=== PATIENT | female | born 1955 | race Caucasian/White ===

== ENCOUNTER → 2019-09-20 | Outpatient (CLI) | payer MEDICARE ==
--- NOTE | 2019-09-20 11:48 | EST ---
EXERCISE STRESS AGE: 63 SEX: F HT: 60" WT: 175 lbs PROTOCOL: Stress echo STAGE: 2 DURATION OF EXERCISE: 6 minutes HEART RATE REST: 86 BLOOD PRESSURE REST: 107/69 MAXIMUM HEART RATE ACHIEVED: 140 MAXIMUM BLOOD PRESSURE: 175/01 85% MPHR: 132 100% MPHR: 158 METS: 7.1 INDICATIONS: Chest pain. RESULTS: Baseline EKG revealed a sinus mechanism with poor R-wave progression over precordial leads. No acute changes. Minor right ventricular conduction delay noted. The patient walked for 6 minutes on a standard Michael protocol. Achieved a maximal heart rate of 140 beats per minute which is more than 85% of predicted maximal. She did not have any angina or any arrhythmia. She did not have any EKG changes to indicate ischemia. This is a negative stress test with limited exercise capacity without any arrhythmia or angina. Baseline echo images revealed normal wall motion and wall thickening of all segments. At peak exercise there was good augmentation of left ventricular wall motion wall thickening of all segments suggesting that there is no evidence of stress-induced ischemia on this study. FINAL IMPRESSION: 1. Fair exercise capacity with a negative stress test by EKG criteria. Peak heart rate was 140 beats per minute and peak blood pressure was 175/91. 2. Normal stress echocardiogram without evidence of ischemia. MMODL / IJN: [id number] /
== END | disposition home or self-care (01) ==
LOC: RADNMMAIN 09:30
PROVIDERS: ATTEND Family Medicine
DX: R94.31 Abnormal electrocardiogram [ECG] [EKG] (principal)
CPT/HCPCS: 93351

== ENCOUNTER → 2019-10-19 | Outpatient (CLI) | payer MEDICARE | END | disposition home or self-care (01) | LOC: RADECHMAIN 12:08 | PROVIDERS: ATTEND Family Medicine | DX: I49.1 Atrial premature depolarization (principal); I49.3 Ventricular premature depolarization | CPT/HCPCS: 93225; 93226 ==

== ENCOUNTER 2021-06-07 07:44 | Day surgery (SDC) | payer MEDICARE ==
[2021-06-04 12:30] VITALS: BMI 35.2
[~2021-06-07 07:44] MED LIST: LACTATED RINGERS 1,000 ML IV SCH; LIDOCAINE 1% (10MG/ML) FOR IV START INTRADERMA PRN
[2021-06-07 08:17] VITALS: TEMP 97.4
[2021-06-07] MEDS ORDERED: PROPOFOL 10 MG/ML 20 ML VIAL IV ONE (08:23)
--- NOTE | 2021-06-07 08:26 | P.GSHP ---
History of Present Illness H&P Date: 06/07/21 Chief Complaint: Screening colonoscopy This is a 65-year-old female who presents today for screening colonoscopy. Patient denies any significant GI complaints. Past Medical History Past Medical History: GERD/Reflux, Hypertension, Musculoskeletal Disorder, Osteoarthritis (OA) Additional Past Medical History / Comment(s): PALPATATIONS. hemorrhoids, slight bulging disc History of Any Multi-Drug Resistant Organisms: None Reported Additional Past Surgical History / Comment(s): D & C, throat polyp removed, colonoscopy, benign growth removed from cheek Past Anesthesia/Blood Transfusion Reactions: Motion Sickness Smoking Status: Never smoker - Past Family History Mother Family Medical History: No Reported History Medications and Allergies Home Medications Medication Instructions Recorded Confirmed Type Lisinopril [Prinivil] 10 mg PO HS 04/25/14 06/07/21 History dilTIAZem HCL [dilTIAZem HCL 24Hr 240 mg PO HS 06/04/21 06/07/21 History ER (Xr)] Allergies Allergy/AdvReac Type Severity Reaction Status Date / Time No Known Allergies Allergy Verified 06/07/21 08:10 Surgical - Exam Vital Signs Temp Pulse Resp BP Pulse Ox 97.4 F L 75 16 155/74 97 06/07/21 08:16 06/07/21 08:16 06/07/21 08:16 06/07/21 08:16 06/07/21 08:16 - General well developed, well nourished, no distress - Eyes PERRL - ENT normal pinna - Neck no masses - Respiratory normal expansion - Cardiovascular Rhythm: regular - Abdomen Abdomen: soft, non tender Assessment and Plan Assessment: We'll perform screening colonoscopy.
--- NOTE | 2021-06-07 08:35 | P.OP ---
Date of Procedure: 06/07/21 Preoperative Diagnosis: Screening colonoscopy Postoperative Diagnosis: Diverticulosis Hemorrhoids Procedure(s) Performed: Colonoscopy Anesthesia: MAC Surgeon: Donavan Chowdhury Pathology: none sent Condition: stable Disposition: PACU Description of Procedure: Patient's placed on the endoscopy table in the lateral position. She received IV sedation. Digital rectal exam performed which revealed significant external hemorrhoids. The flexible colonoscope was then placed patient anus and passed throughout the entire colon. The ileocecal valve sutures. The cecum, ascending and transverse colon appeared normal. In the descending; was mild diverticular changes. Scope was brought back the rectum this appeared normal. Scope withdrawn the anus and there were internal and external hemorrhoids noted.
[2021-06-07 08:41] VITALS: BP 104/67
[2021-06-07 08:57] VITALS: PULSE 66; RESP 16
== END 2021-06-07 09:15 | disposition home or self-care (01) ==
LOC: ORWHC2ENDO 07:44
PROVIDERS: ATTEND Surgery
DX: Z12.11 Encounter for screening for malignant neoplasm of colon (principal); K57.30 Diverticulosis of large intestine without perforation or abscess without bleeding; K64.4 Residual hemorrhoidal skin tags; K21.9 Gastro-esophageal reflux disease without esophagitis; I10 Essential (primary) hypertension; M19.90 Unspecified osteoarthritis, unspecified site; Z98.890 Other specified postprocedural states; Z79.899 Other long term (current) drug therapy
CPT/HCPCS: J2704; G0121; 45378

== ENCOUNTER → 2021-07-26 | Outpatient (CLI) | payer MEDICARE ==
--- NOTE | 2021-07-27 08:51 | BD ---
EXAMINATION TYPE: Axial Bone Density DATE OF EXAM: 07/26/2021 COMPARISON: 12.12.2009 CLINICAL HISTORY: 65 YR OLD FEMALE....ICD-10 CODE: N95.1 MENOPAUSAL Height: 59 Weight: 180 FRAX RISK QUESTIONS: Glucocorticoids (More than 3mos): YES (Ex: prednisone, prednisolone, methylprednisolone, dexamethasone, and hydrocortisone). RISK FACTORS HISTORY OF: Postmenopausal woman: YES, AT ABOUT 50 YRS OLD Lost more than 2 inches in height since high school: YES Hyperparathyroidism: NO Adrenal Insufficiency: NO MEDICATIONS: Prednisone or other steroids: YES, FOR BULGING DISCS IN SPINE, FOR YR Additional Medications: BP MED, REFLUX MEDS, VIT D AND CALCIUM WITH MULTIVITAMIN Additional History: HYPERTENSION, REFLUX EXAM MEASUREMENTS: Bone mineral densitometry was performed using the [email or web address] System. Bone mineral density as measured about the Lumbar spine is: ----- L1-L4(G/cm2): 0.993 T Score Values are as follows: ----- L1: -2.0 ----- L2: -2.3 ----- L3: -1.0 ----- L4: -1.1 ----- L1-L4: -1.6 Bone mineral density has: Increased 2.8% since study of: 12.12.2009 Bone mineral density about the R hip (g/cm2): 0.900 Bone mineral density about the L hip (g/cm2): 0.945 T Score values are as follows: -----R Neck: -1.5 -----L Neck: -1.5 -----R Total: -0.9 -----L Total: -0.5 Bone mineral density has: Decreased -8.8% since study of: 12.12.2009 FRAX%s: THERE IS A 12.1% CHANCE FOR A MAJOR OSTEOPOROTIC FX AND A 2.1% FOR HIP.....PROBABILITY FOR FX IN 10 YRS TIME IMPRESSION: Osteopenia NOTE: T-SCORE=SD OF THE YOUNG ADULT MEAN.
== END | disposition home or self-care (01) ==
LOC: RADBDWWP 09:08
PROVIDERS: ATTEND Family Medicine
DX: M85.89 Other specified disorders of bone density and structure, multiple sites (principal); Z78.0 Asymptomatic menopausal state
CPT/HCPCS: 77080

== ENCOUNTER 2022-11-16 23:38 | Emergency (ER) | payer MEDICARE ==
[2022-11-16 23:48] VITALS: RESP 18; TEMP 98.4
[2022-11-17] MEDS ORDERED: FAMOTIDINE 20 MG/2 ML VIAL IV STA (00:34)
[2022-11-17] MEDS ORDERED: SODIUM CHLORIDE 0.9% 500 ML 500 ML IV STA (00:34)
[2022-11-17] MEDS ORDERED: ONDANSETRON 4 MG/2 ML VIAL IVP STA (00:34)
--- NOTE | 2022-11-17 00:39 | ED ---
General Adult HPI - General Chief complaint: Nausea/Vomiting/Diarrhea Stated complaint: Diarrhea, Fever, Cough, Congestion Time Seen by Provider: 11/17/22 00:12 Source: patient, RN notes reviewed, old records reviewed Mode of arrival: ambulatory - History of Present Illness Initial comments: This is a pleasant nontoxic-appearing 66-year-old female who presents ambulatory with complaints of testing positive for coronavirus at home on Friday. Friday she developed some nausea with fever and cough. Has had a decreased appetite but has been drinking a lot of water. Today she developed some diarrhea. No further fevers. She has been increasingly fatigued and dehydrated and feels like dehydration is point cause her heart to stop. She denies any chest pain or difficulty in breathing. History of GERD, hypertension and palpitations. -: days(s) (5) Severity scale (1-10): 5 Quality: aching (body) Associated Symptoms: loss of appetite, malaise, nausea/vomiting (no vomiting), weakness Treatments Prior to Arrival: none - Related Data Home Medications Medication Instructions Recorded Confirmed lisinopriL [Prinivil] 10 mg PO HS 04/25/14 06/07/21 dilTIAZem HCL [dilTIAZem HCL 24Hr 240 mg PO HS 06/04/21 06/07/21 ER (Xr)] Allergies Allergy/AdvReac Type Severity Reaction Status Date / Time No Known Allergies Allergy Verified 11/16/22 23:48 Patient : No Review of Systems ROS Statement: Those systems with pertinent positive or pertinent negative responses have been documented in the HPI. ROS Other: All systems not noted in ROS Statement are negative. Past Medical History Past Medical History: GERD/Reflux, Hypertension, Musculoskeletal Disorder, Osteoarthritis (OA) Additional Past Medical History / Comment(s): PALPATATIONS. hemorrhoids, slight bulging disc History of Any Multi-Drug Resistant Organisms: None Reported Additional Past Surgical History / Comment(s): D & C, throat polyp removed, colonoscopy, benign growth removed from cheek Past Anesthesia/Blood Transfusion Reactions: Motion Sickness Past Psychological History: No Psychological Hx Reported Smoking Status: Never smoker - Past Family History Mother Family Medical History: No Reported History General Exam General appearance: alert, in no apparent distress Head exam: Present: atraumatic Eye exam: Absent: scleral icterus, conjunctival injection, periorbital swelling ENT exam: Present: mucous membranes dry Neck exam: Present: full ROM. Absent: tenderness, meningismus, lymphadenopathy Respiratory exam: Present: normal lung sounds bilaterally. Absent: respiratory distress, accessory muscle use Cardiovascular Exam: Present: regular rate GI/Abdominal exam: Present: soft. Absent: distended, rigid Extremities exam: Present: normal capillary refill. Absent: pedal edema Neurological exam: Present: alert, oriented X3, CN II-XII intact, normal gait Psychiatric exam: Present: normal affect, normal mood Skin exam: Present: warm, dry, normal color. Absent: cyanosis, diaphoretic, petechiae, pallor Course Vital Signs 11/16/22 11/17/22 23:41 02:48 Temperature 98.4 F Pulse Rate 95 73 Respiratory 18 18 Rate Blood Pressure 163/100 150/73 O2 Sat by Pulse 96 98 Oximetry EKG Findings - EKG Results: EKG: sinus rhythm (Ventricular rate 79, MI interval 0.169, QRS 0.98, QTc 0.443, normal axis, no significant change compared to stress EKG 09/20/19) Medical Decision Making - Medical Decision Making Chest x-ray interpreted by me shows no evidence of focal consolidation, trachea is midline, heart silhouette within normal size. Radiologist impression COPD, no acute disease identified. EKG shows sinus rhythm with a ventricular rate of 79, MI interval 0.169, QRS 0.98, QTc 0.443. No significant change compared to old 09/20/2019 Troponin is negative. CBC and electrolytes are unremarkable. D-dimer negative, was performed due to patient's recent diagnosis of Covid. Patient's symptoms are likely related to malaise from the coronavirus. She was encouraged to increase her fluid intake. Take vitamin C, vitamin D and zinc daily. Follow up with her primary care Dr. Lainez next week. She is discharged home to family agreeable with this plan of care. Case discussed with Dr. Olguin. Was pt. sent in by a medical professional or institution ([facility], PRINCIPAL SYSTEM SOFTWARE ENGINEER, urgent care, hospital, or prison...) When possible be specific @ -No Did you speak to anyone other than the patient for history (EMS, parent, family, police, friend...)? What history was obtained from this source @ -No Did you review nursing and triage notes (agree or disagree)? Why? @ -I reviewed and agree with nursing and triage notes Were old charts reviewed (outside hosp., previous admission, EMS record, old EKG, old radiological studies, urgent care reports/EKG's, prison records)? Report findings @ -Old EKG as above Differential Diagnosis (chest pain, altered mental status, abdominal pain women, abdominal pain men, vaginal bleeding, weakness, fever, dyspnea, syncope, headache, dizziness, GI bleed, back pain, seizure, CVA, palpatations, mental health, musculoskeletal)? @ -Differential Weakness: Hypoglycemia, shock, sepsis, hyponatremia, anemia, infection, CO, ETOH, adverse medicine reaction, overdose, stroke, this is not meant to be an all-inclusive list. EKG interpreted by me (3pts min.). @ -As above X-rays interpreted by me (1pt min.). @ -yeS as above CT interpreted by me (1pt min.). @ -None done U/S interpreted by me (1pt. min.). @ -None done What testing was considered but not performed or refused? (CT, X-rays, U/S, labs)? Why? @ -None What meds were considered but not given or refused? Why? @ -None Did you discuss the management of the patient with other professionals (professionals i.e. , PA, PRINCIPAL SYSTEM SOFTWARE ENGINEER, lab, RT, psych nurse, manager social services, retail and restaurant associate, teacher, personnel officer, case work aide)? Give summary @ -No Was smoking cessation discussed for >3mins.? @ -No Was critical care preformed (if so, how long)? @ -No Were there social determinants of health that impacted care today? How? (Hua elessness, low income, unemployed, alcoholism, drug addiction, transportation, low edu. Level, literacy, decrease access to med. care, half-way, rehab)? @ -No Was there de-escalation of care discussed even if they declined (Discuss DNR or withdrawal of care, Hospice)? DNR status @ -No What co-morbidities impacted this encounter? (DM, HTN, Smoking, COPD, CAD, Cancer, CVA, ARF, Chemo, Hep., AIDS, mental health diagnosis, sleep apnea, morbid obesity)? @ -GERD, hypertension, osteoarthritis Was patient admitted / discharged? Hospital course, mention meds given and route, prescriptions, significant lab abnormalities, going to OR and other pertinent info. @ -Discharged Undiagnosed new problem with uncertain prognosis? @ -No Drug Therapy requiring intensive monitoring for toxicity (Heparin, Nitro, Insulin, Cardizem)? @ -No Were any procedures done? @ -No Diagnosis/symptom? @ -Coronavirus, malaise Acute, or Chronic, or Acute on Chronic? @ -Acute Uncomplicated (without systemic symptoms) or Complicated (systemic symptoms)? @ -Uncomplicated Side effects of treatment? @ -No Exacerbation, Progression, or Severe Exacerbation? @ -No Poses a threat to life or bodily function? How? (Chest pain, USA, CO, pneumonia, PE, COPD, DKA, ARF, appy, cholecystitis, CVA, Diverticulitis, Homicidal, Suicidal, threat to staff... and all critical care pts) @ -No - Lab Data Result diagrams: 11/17/22 00:38 11/17/22 00:38 Lab Results 11/17/22 11/17/22 11/17/22 Range/Units 00:38 00:38 00:38 WBC 6.2 (3.8-10.6) k/uL RBC 5.18 (3.80-5.40) m/uL Hgb 15.0 (11.4-16.0) gm/dL Hct 42.3 (34.0-46.0) % MCV 81.6 (80.0-100.0) fL MCH 29.1 (25.0-35.0) pg MCHC 35.6 (31.0-37.0) g/dL RDW 13.5 (11.5-15.5) % Plt Count 187 (150-450) k/uL MPV 8.9 Neutrophils % 74 % Lymphocytes % 16 % Monocytes % 7 % Eosinophils % 1 % Basophils % 0 % Neutrophils # 4.6 (1.3-7.7) k/uL Lymphocytes # 1.0 (1.0-4.8) k/uL Monocytes # 0.4 (0-1.0) k/uL Eosinophils # 0.1 (0-0.7) k/uL Basophils # 0.0 (0-0.2) k/uL PT 10.0 (9.0-12.0) sec INR 0.9 (<1.2) APTT 25.7 (22.0-30.0) sec D-Dimer 0.37 (<0.60) mg/L FEU Sodium 137 (137-145) mmol/L Potassium 3.9 (3.5-5.1) mmol/L Chloride 103 (98-107) mmol/L Carbon Dioxide 22 (22-30) mmol/L Anion Gap 12 mmol/L BUN 12 (7-17) mg/dL Creatinine 0.62 (0.52-1.04) mg/dL Est GFR (CKD-EPI)AfAm >90 (>60 ml/min/1.73 sqM) Est GFR (CKD-EPI)NonAf >90 (>60 ml/min/1.73 sqM) Glucose 152 H (74-99) mg/dL Plasma Lactic Acid Yobany (0.7-2.0) mmol/L Calcium 9.0 (8.4-10.2) mg/dL Magnesium 2.0 (1.6-2.3) mg/dL Total Bilirubin 0.4 (0.2-1.3) mg/dL AST 32 (14-36) U/L ALT 31 (4-34) U/L Alkaline Phosphatase 102 (38-126) U/L Troponin I (0.000-0.034) ng/mL Total Protein 6.7 (6.3-8.2) g/dL Albumin 4.1 (3.5-5.0) g/dL 11/17/22 11/17/22 Range/Units 00:38 00:38 WBC (3.8-10.6) k/uL RBC (3.80-5.40) m/uL Hgb (11.4-16.0) gm/dL Hct (34.0-46.0) % MCV (80.0-100.0) fL MCH (25.0-35.0) pg MCHC (31.0-37.0) g/dL RDW (11.5-15.5) % Plt Count (150-450) k/uL MPV Neutrophils % % Lymphocytes % % Monocytes % % Eosinophils % % Basophils % % Neutrophils # (1.3-7.7) k/uL Lymphocytes # (1.0-4.8) k/uL Monocytes # (0-1.0) k/uL Eosinophils # (0-0.7) k/uL Basophils # (0-0.2) k/uL PT (9.0-12.0) sec INR (<1.2) APTT (22.0-30.0) sec D-Dimer (<0.60) mg/L FEU Sodium (137-145) mmol/L Potassium (3.5-5.1) mmol/L Chloride (98-107) mmol/L Carbon Dioxide (22-30) mmol/L Anion Gap mmol/L BUN (7-17) mg/dL Creatinine (0.52-1.04) mg/dL Est GFR (CKD-EPI)AfAm (>60 ml/min/1.73 sqM) Est GFR (CKD-EPI)NonAf (>60 ml/min/1.73 sqM) Glucose (74-99) mg/dL Plasma Lactic Acid Yobany 1.0 (0.7-2.0) mmol/L Calcium (8.4-10.2) mg/dL Magnesium (1.6-2.3) mg/dL Total Bilirubin (0.2-1.3) mg/dL AST (14-36) U/L ALT (4-34) U/L Alkaline Phosphatase (38-126) U/L Troponin I <0.012 (0.000-0.034) ng/mL Total Protein (6.3-8.2) g/dL Albumin (3.5-5.0) g/dL Disposition Clinical Impression: COVID-19 Disposition: HOME SELF-CARE Condition: Good Instructions (If sedation given, give patient instructions): COVID-19 (Coronavirus Disease 2019) (ED) Additional Instructions: Increase your fluid intake. Tylenol and or Motrin as needed for any fevers or discomfort. Take vitamin C, vitamin D and zinc daily to improve your immune health. Follow-up with Dr. Lainez next week. Return to the emergency room with any new or concerning symptoms. Is patient prescribed a controlled substance at d/c from ED?: No Referrals: Francis Lainez MD [Primary Care Provider] - 1-2 days Time of Disposition: 02:37
[2022-11-17 01:14] LABS: Basophils % (A) 0 %; Eosinophils # (A) 0.1 k/uL (0-0.7); Eosinophils % (A) 1 %; HCT 42.3 % (34.0-46.0); Lymphocytes % (A) 16 %; MCH 29.1 pg (25.0-35.0); MCHC 35.6 g/dL (31.0-37.0); MCV 81.6 fL (80.0-100.0); Mean Platelet Volume 8.9; Monocytes # (A) 0.4 k/uL (0-1.0); Monocytes % (A) 7 %; Neutrophils # (A) 4.6 k/uL (1.3-7.7); Neutrophils % (A) 74 %; Platelet Count 187 k/uL (150-450); RBC 5.18 m/uL (3.80-5.40); RDW 13.5 % (11.5-15.5); WBC 6.2 k/uL (3.8-10.6)
[2022-11-17 01:35] LABS: Chloride 103 mmol/L (98-107)
[2022-11-17 01:36] LABS: ALT 31 U/L (4-34); AST 32 U/L (14-36); African American GFR (CKD) >90 (>60 ml/min/1.73 sqM); Albumin 4.1 g/dL (3.5-5.0); Alkaline Phosphatase 102 U/L (38-126); Anion Gap 12 mmol/L; Blood Urea Nitrogen 12 mg/dL (7-17); Carbon Dioxide 22 mmol/L (22-30); Glucose 152 mg/dL (74-99); Non-African American GFR(CKD) >90 (>60 ml/min/1.73 sqM); Potassium 3.9 mmol/L (3.5-5.1); Sodium 137 mmol/L (137-145); Total Bilirubin 0.4 mg/dL (0.2-1.3); Total Protein 6.7 g/dL (6.3-8.2)
[2022-11-17 02:03] LABS: INR 0.9 (<1.2); Partial Thromboplastin Time 25.7 sec (22.0-30.0)
[2022-11-17 02:49] VITALS: BP 150/73; PULSE 73
--- NOTE | 2022-11-17 03:28 | XR ---
EXAM: XR Chest, 2 Views CLINICAL HISTORY: ITS.REASON XR Reason: Weakness TECHNIQUE: Frontal and lateral views of the chest. COMPARISON: None FINDINGS: Hardware: None. Lungs/pleura: Hyperinflation of the lungs is suggestive of COPD. No focal consolidation. No pleural effusion or pneumothorax. Heart/mediastinum: Normal. No cardiomegaly. Soft tissues: Unremarkable. Bones: No acute fracture. Degenerative changes of the spine. Upper abdomen: Normal. IMPRESSION: COPD. No acute disease identified.
== END 2022-11-17 02:50 | disposition home or self-care (01) ==
LOC: EC 23:38
DX: U07.1 COVID-19 (principal); I10 Essential (primary) hypertension; Z79.899 Other long term (current) drug therapy
CPT/HCPCS: 36415; 93005; 85379; 80053; 83605; 83735; 84484; 85025; 85610; 85730; 71046; 99284; 96374; 96375; J2405

== ENCOUNTER → 2023-07-11 | Outpatient (CLI) | payer MEDICARE ==
[2023-07-11 14:20] LABS: Partial Thromboplastin Time 24.9 sec (22.0-30.0); Prothrombin Time 10.7 sec (10.0-12.5)
[2023-07-11 16:23] LABS: ALT 15 U/L (8-44); AST 18 U/L (13-35); Albumin 4.5 g/dL (3.8-4.9); Albumin/Globulin Ratio 2.05 Ratio (1.60-3.17); Alkaline Phosphatase 113 U/L (41-126); Blood Urea Nitrogen 11.9 mg/dL (9.0-27.0); Calcium 10.4 mg/dL (8.7-10.3); Carbon Dioxide 24.9 mmol/L (21.6-31.8); Chloride 104 mmol/L (96-109); Globulin 2.2 g/dL (1.6-3.3); Glucose 98 mg/dL (70-110); HCT 45.1 % (37.2-46.3); HGB 15.3 g/dL (12.0-15.0); MCH 28.2 pg (27.0-32.0); MCHC 33.9 g/dL (32.0-37.0); MCV 83.1 FL (80.0-97.0); Mean Platelet Volume 10.4 FL (9.5-12.2); NRBC Per 100 WBC 0 X 10*3/uL (0.00-0.01); Platelet Count 275 X 10*3/uL (140-440); Potassium 4.7 mmol/L (3.5-5.5); RBC 5.43 X 10*6/uL (4.10-5.20); RDW 13.8 % (11.5-14.5); Sodium 141 mmol/L (135-145); Total Bilirubin 0.4 mg/dL (0.3-1.2); Total Protein 6.7 g/dL (6.2-8.2)
[2023-07-11 16:49] LABS: Appearance,Urine Clear (Clear); Bilirubin,Urine Negative (Negative); Blood,Urine Moderate (Negative); Color,Urine Yellow (Yellow); Ketones,Urine Trace (Negative); Nitrite,Urine Negative (Negative); Specific Gravity,Urine 1.015 (1.001-1.030); Urobilinogen,Urine 0.2 E.U./DL
[2023-07-11 17:07] LABS: Bacteria,Urine None Seen (None Seen)
== END | disposition home or self-care (01) ==
LOC: LABPAT 13:26
PROVIDERS: ATTEND Orthopaedic Surgery
DX: Z01.812 Encounter for preprocedural laboratory examination (principal); M16.11 Unilateral primary osteoarthritis, right hip
CPT/HCPCS: 80053; 81001; 85027; 85610; 85730; 86850; 86900; 86901; 87070

== ENCOUNTER 2023-07-21 05:33 | Day surgery (SDC) | payer MEDICARE ==
[2023-07-15 09:01] VITALS: BMI 35.2
[~2023-07-21 05:33] MED LIST changes: +ACETAMINOPHEN TAB 500 MG TAB PO PRN; +GABAPENTIN 300 MG CAP PO PRN; -LACTATED RINGERS 1,000 ML IV SCH; -LIDOCAINE 1% (10MG/ML) FOR IV START INTRADERMA PRN; +MELOXICAM 7.5 MG TAB PO PRN; +TRANEXAMIC 1,000 MG/100ML-NACL 1,000 MG in SALINE 1 100ML.BAG IVPB PRN
[2023-07-21] MEDS ORDERED: ONDANSETRON 4 MG/2 ML VIAL IVP ONE (05:47)
[2023-07-21] MEDS ORDERED: DEXAMETHASONE SOD PHOSPHATE 4 MG/ML 1 ML VIAL IV ONE (05:47)
[2023-07-21] MEDS: LACTATED RINGERS 1,000 ML IV SCH ×2 (06:01→10:49)
[2023-07-21] MEDS ORDERED: MIDAZOLAM 2 MG/2 ML VIAL IVP ONE (06:39)
[2023-07-21] MEDS ORDERED: fentaNYL (PF) 50 MCG/ML 2 ML AMP ONE (06:55)
[2023-07-21] MEDS ORDERED: ROCURONIUM 10 MG/ML (5 ML VIAL) IV ONE (06:55)
[2023-07-21] MEDS ORDERED: TRANEXAMIC 1,000 MG/100ML-NACL PREMIX BAG ONE (06:55)
[2023-07-21] MEDS ORDERED: PROPOFOL 10 MG/ML 20 ML VIAL IV ONE (06:55)
[2023-07-21] MEDS ORDERED: NEOSTIGMINE 1 MG/ML 10 ML VIAL ONE (06:55)
[2023-07-21] MEDS ORDERED: MIDAZOLAM 2 MG/2 ML VIAL ONE (06:55)
[2023-07-21] MEDS ORDERED: HYDROmorphone (PF) 1 MG/ML ONE (06:55)
[2023-07-21] MEDS ORDERED: GLYCOPYRROLATE 0.2 MG/ML 2 ML VIAL ONE (06:55)
[2023-07-21] MEDS ORDERED: SUCCINYLCHOLINE CHLORIDE 200 MG/10 ML VIAL IV ONE (06:55)
[2023-07-21] MEDS ORDERED: MIDAZOLAM 2 MG/2 ML VIAL IV PRN (07:00)
[2023-07-21] MEDS ORDERED: HYDROmorphone 0.5 MG/0.5 ML SYRINGE IVP PRN ×4 (07:00→08:45)
--- NOTE | 2023-07-21 07:22 | P.ANPRN ---
Procedure Note - Anesthesia - Nerve Block Performed Right Eamon Single Time Out Performed: Yes Date of Procedure: 07/21/23 Procedure Start Time: 06:39 Procedure Stop Time: 06:45 Location of Patient: PreOp Indication: Acute Post-Operative Pain, Analgesia, Requested by Surgeon Sedation Type: Sedate with meaningful contact maintained Preparation: Sterile Prep Position: Supine Catheter: None Needle Types: Pajunk Needle Gauge: 21 Ultrasound used to visualize needle placement: Yes Ultrasound used to observe medication spread: Yes Injectate: 0.5% Ropivacaine (see comment for volume) (Ropiv 12.5ml+NS 12.5 ml) Blood Aspirated: No Pain Paresthesia on Injection Noted: No Resistance on Injection: Normal Image Stored and Saved: Yes Events: Uneventful and Well Tolerated
[2023-07-21] MEDS ORDERED: ceFAZolin 1,000 MG in SODIUM CHLORIDE 0.9% 1,000 ML IRRIGATION ONE (07:33)
[2023-07-21] MEDS ORDERED: ROPIVACAINE 5 MG/ML 30 ML VIAL MISCELLANE ONE (07:37)
--- NOTE | 2023-07-21 08:23 | P.OP ---
Date of Procedure: 07/21/23 Preoperative Diagnosis: Severe osteoarthritis right hip Postoperative Diagnosis: Severe osteoarthritis right hip Procedure(s) Performed: Right total hip arthroplasty with a direct anterior approach Implants: [employer] Polarstem standard size 3 with a collar [employer]hew R3, 3 hole hemispherical acetabular shell, 50 mm [employer]hew Reflection 6.5 mm cancellus screw, 20 mm, 25 mm [employer] R3, XLPE 20 acetabular liner [employer]hew Oxinium femoral head 36 mm, -3 All components were press-fit. The articulation is Oxinium on polyethylene. Anesthesia: GETA Surgeon: Dheeraj Cervantes Sql Data Analyst #1: Millie Snider Estimated Blood Loss (ml): 300 Pathology: none sent Condition: stable Disposition: PACU Indications for Procedure: After failure of conservative treatment we discussed the surgical and non surgical treatment options at length. Patient wishes to proceed with a total hip arthroplasty with a direct anterior approach. Complications specific to this procedure were discussed at length, including but not limited to infection, leg length discrepancy, dislocation, nerve injury, and fracture. Covid-19 was also discussed at length with the patient, and they are aware of the current policies and procedures. The patient was given the option of delaying surgery, but they elect to proceed knowing these risks. Patient is aware of all these complications and informed consent was obtained Operative Findings: The operative findings are consistent with severe osteoarthritis of the right hip Description of Procedure: The patient was seen and evaluated in the preoperative area and the consent was reviewed. The operative site was marked with a skin marker. The patient verified the procedure and operative site. A HERB block was placed by anesthesia in the preoperative area. The patient was then brought to the operating room and given preoperative antibiotics intravenously. 1 g of Tranexamic acid was also given intravenously. A general anesthetic was administered by the anesthesia department. The patient was then placed on the Moran table with the bony prominences well-padded. The hip area was then prepped with a ChloraPrep solution and draped in the usual sterile fashion. A universal timeout was then performed, which confirmed the patient's name, surgical site, ALLERGIES, and procedure being performed on the consent. Next the incision site was located at 1 cm distal and 4 cm lateral to the anterior superior iliac spine. The skin and subcutaneous tissues were sharply incised. Incision was carefully dissected down to the fascia overlying the tensor fascia immanuel muscle. This fascia was then incised in line with the muscle fibers. Care was taken to stay laterally in order to avoid injuring the lateral femoral cutaneous nerve. Next, using blunt finger dissection, the tensor fascia immanuel muscle was dissected off its investing fascia. The muscle was then carefully retracted laterally with a cobra retractor over the lateral neck of the femur. Next, the circumflex vessels were identified and cauterized using the Aquamantis device. The anterior hip capsule was then exposed. The capsule was then opened and an inverted T fashion. The retractors were then placed intracapsularly. The retractors were maintained intracapsular throughout the procedure. The proximal femur was then visualized. Fluoroscopic x-rays were then taken in order to evaluate the preoperative leg lengths. A small amount of traction was placed on the leg. The femoral neck was then osteotomized at the appropriate level above the lesser trochanter. A small wedge of bone was then removed from the remaining femoral head. Next, using a corkscrew the femoral head was removed from the acetabulum. On gross visual inspection, the femoral head had complete loss of articular cartilage and multiple periarticular osteophytes. The femoral head was then measured. Attention was then turned to the acetabulum. The acetabulum was exposed and any remaining labrum was excised. Sequential reaming of the acetabulum was performed using fluoroscopic guidance until there was a good bed of bleeding cancellus bone. When the appropriate size was reached, a trial was then placed. The position and fit of the trial was checked with fluoroscopy. The trial was then removed. Then, using fluoroscopic guidance, the final implant was impacted at 20 of anteversion and 40 of abduction, and fully seated in the acetabulum. 2 screws were then placed in the acetabulum. Again fluoroscopy was used to check position of the screws. Next, the liner was then impacted, with a 20 elevated liner located in the anterior superior quadrant. Component locking was confirmed. Attention was then directed to the femur. With the aid of the Moran table, the femur was externally rotated to approximately 130, extended, and adducted under the opposite leg. A side hook was then placed under the proximal femur, and the side hook elevator was used to elevate the proximal femur while releasing the capsule. Retractors were then placed. A capsular release was performed, as well as a release of the conjoined tendon, which afforded excellent visualization of the proximal femur. Next, a box osteotome was used to lateralize the proximal femur. A wood handler was then used to locate the femoral canal. Sequential broaching was then performed with appropriate size which afforded excellent fixation in the proximal femur. A trial was then placed with appropriate head and neck, and the hip was gently reduced with the aid of the Moran table. Fluoroscopy was then used to check position of the components, as well as to evaluate the leg lengths and offset. The leg lengths and offset were measured as closely as possible to ensure stability of the hip. The hip was then gently dislocated and the trials were then removed. Final implants were then impacted and the hip was again reduced. Final fluoroscopic x-rays confirmed that the components were in anatomic position. The leg lengths and offset were measured and were found to coincide with the trial measurements. The hip was also taken through range of motion, and found to be stable. The hip was then copiously irrigated with antibiotic solution with pulsatile lavage. The hip was then irrigated with Irrisept solution. The soft tissues were then injected with a ropivacaine solution. A second dose of 1 g of Tranexamic acid was also given intravenously. The fascia was then closed with 2-0 strata fix suture. The subcutaneous tissue was closed with 3-0 Vicryl. The subcuticular tissue was closed with 3-0 strata fix suture. The skin was then closed with Exofin skin glue. After the glue and dried, and Optifoam silver impregnated dressing was applied. The patient was then transferred to the recovery room in stable condition. The assistant sales center manager V[place] was required due to the complexity of surgery, and the need for skilled rn medical surgical for positioning, draping, exposure, retraction, and closure of the wound.
--- NOTE | 2023-07-21 08:37 | FL ---
Intraoperative/procedural fluoroscopic services were provided. Total fluoroscopy time is 26.6 seconds with a total of 6 submitted images to PACS. Please see the operative/procedural note for further det ails. DAP: 1.4690 Gycm2
[2023-07-21] MEDS ORDERED: MAGNESIUM HYDROXIDE 2,400 MG/30 ML CUP PO PRN (08:45)
[2023-07-21] MEDS ORDERED: ONDANSETRON 4 MG/2 ML VIAL IVP PRN (08:45)
[2023-07-21] MEDS ORDERED: NALOXONE 0.4 MG/ML 1 ML VIAL IV PRN (08:45)
[2023-07-21] MEDS ORDERED: HYDROcodone/APAP 7.5-325MG 1 EACH TAB PO PRN ×2 (08:47)
--- NOTE | 2023-07-21 09:17 | XR ---
EXAMINATION TYPE: XR Hip Limited RT DATE OF EXAM: 07/21/2023 COMPARISON: None HISTORY: Surgery TECHNIQUE: AP right hip FINDINGS: There is placement of a right femoral prosthesis with acetabular component. No acute fractu res are evident. IMPRESSION: 1. No acute fracture post right hip replacement
[2023-07-21] MEDS ORDERED: lisinopriL 10 MG TAB PO SCH (21:00)
[2023-07-21] MEDS ORDERED: SENNOSIDES-DOCUSATE SODIUM 1 EACH TAB PO SCH (21:00)
[2023-07-21] MEDS: ASPIRIN 325 MG TAB PO SCH (21:17)
[2023-07-21] MEDS: SODIUM CHLORIDE 0.9% 1,000 ML IV SCH ×2 (21:18→21:19)
[2023-07-21] MEDS ORDERED: ACETAMINOPHEN TAB 500 MG TAB PO PRN (21:28)
[2023-07-21] MEDS ORDERED: traMADol 50 MG TAB PO PRN (21:29)
[2023-07-22 02:31] VITALS: PULSE 68; RESP 17
[2023-07-22 08:13] VITALS: BP 110/68; TEMP 98.5
[2023-07-22] MEDS: ASPIRIN 325 MG TAB PO SCH (08:13)
--- NOTE | 2023-07-22 08:32 | P.CONS ---
History of Present Illness - Reason for Consult Consult date: 07/22/23 Medical management - Chief Complaint Status post right hip arthroplasty - History of Present Illness This is 67-year-old white female status post day #1 for right hip arthroplasty. The patient is doing quite well tolerating diet. Pain is somewhat severe but she seems to be tolerating. No voiding difficulties no nausea or vomiting. History of hypertension. Medications were reconciled Review of Systems Constitutional: Denies chills, Denies fever Eyes: denies blurred vision, denies pain Ears, nose, mouth and throat: Denies headache, Denies sore throat Cardiovascular: Denies chest pain, Denies shortness of breath Respiratory: Denies cough Gastrointestinal: Denies abdominal pain, Denies diarrhea, Denies nausea, Denies vomiting Past Medical History Past Medical History: GERD/Reflux, Hypertension, Musculoskeletal Disorder, Osteoarthritis (OA) Additional Past Medical History / Comment(s): PALPATATIONS. hemorrhoids, slight bulging disc History of Any Multi-Drug Resistant Organisms: None Reported Additional Past Surgical History / Comment(s): D & C, throat polyp removed, colonoscopy, benign growth removed from cheek Past Anesthesia/Blood Transfusion Reactions: Motion Sickness Past Psychological History: No Psychological Hx Reported Smoking Status: Never smoker Past Alcohol Use History: None Reported Past Drug Use History: None Reported - Past Family History Mother Family Medical History: No Reported History Medications and Allergies Home Medications Medication Instructions Recorded Confirmed Type lisinopriL [Prinivil] 10 mg PO HS 04/25/14 07/21/23 History Aspirin 325 mg PO BID #60 tab 07/21/23 Rx HYDROcodone/APAP 7.5-325MG [Theresa 1 - 2 tab PO Q6H PRN #32 tab 07/21/23 Rx 7.5-325] Metoprolol Succinate [Toprol XL] 50 mg PO DAILY 07/21/23 07/21/23 History Sennosides [Senokot] 2 tab PO DAILY PRN #60 tablet 07/21/23 Rx Allergies Allergy/AdvReac Type Severity Reaction Status Date / Time No Known Allergies Allergy Verified 07/21/23 05:58 Physical Exam Vitals: Vital Signs Temp Pulse Pulse Resp BP Pulse Ox 07/22/23 07:02 98.5 F 68 17 110/68 93 L 07/22/23 01:12 98.9 F 68 17 96/47 94 L 07/21/23 18:56 98.7 F 70 106/62 94 L 07/21/23 12:44 97.6 F 53 L 16 113/64 98 07/21/23 12:00 50 L 16 117/58 98 07/21/23 11:30 50 L 16 125/59 97 07/21/23 11:00 48 L 16 113/56 97 07/21/23 10:30 48 L 16 110/55 99 07/21/23 10:00 49 L 16 114/57 100 07/21/23 09:45 52 L 16 128/57 97 07/21/23 09:27 53 L 16 116/56 99 07/21/23 09:12 47 L 16 114/55 98 07/21/23 08:57 47 L 16 112/53 98 07/21/23 08:42 97.0 F L 47 L 16 99/55 98 Intake and Output 07/21/23 07/22/23 07/22/23 22:59 06:59 14:59 Intake Total 1350 Output Total 1100 Balance 1350 -1100 Intake: Intake, IV Titration 350 Amount Sodium Chloride 0.9% 1, 350 000 ml @ 70 mls/hr IV . [id number] [facility] Rx#:[id number] Oral 1000 Output: Urine 1100 Other: # Voids 1 2 # Bowel Movements 0 - Constitutional General appearance: average body habitus, cooperative, no acute distress - EENT Eyes: EOMI - Neck Neck: no lymphadenopathy - Cardiovascular Rhythm: regular Heart sounds: normal: S1, S2 Abnormal Heart Sounds: no S3 Gallop - Gastrointestinal General gastrointestinal: soft, no tenderness - Neurologic Neurologic: CNII-XII intact Assessment and Plan (1) History of total right hip arthroplasty Current Visit: Yes Status: Acute Code(s): Z96.641 - PRESENCE OF RIGHT ARTIFICIAL HIP JOINT SNOMED Code(s): 925710158671 (2) Hypertension Current Visit: Yes Status: Acute Code(s): I10 - ESSENTIAL (PRIMARY) HYPERTENSION SNOMED Code(s): 00651577 (3) Gastroesophageal reflux disease Current Visit: Yes Status: Acute Code(s): K21.9 - GASTRO-ESOPHAGEAL REFLUX DISEASE WITHOUT ESOPHAGITIS SNOMED Code(s): 723118329 Plan: Continue standard orthopedic postop protocols per Increase ambulation. Continue physical therapy. Reconcile home medications. Pulmonary toilet. Home health rehab versus ECF rehab. Time with Patient: Greater than 30
--- NOTE | 2023-07-22 08:45 | P.DS ---
Providers Expected date of discharge: 07/22/23 Attending physician: Dheeraj Cervantes Consults: 07/21/23 08:45 Consult Physician Routine Consulting Provider: Francis Lainez Consult Reason/Comments: medical management Do you want consulting provider notified?: Yes Primary care physician: Francis Lainez - Discharge Diagnosis(es) (1) Osteoarthritis of right hip Current Visit: Yes Status: Acute (2) S/P total hip arthroplasty Current Visit: Yes Status: Acute Hospital Course: This is a 67-year-old female with known history of degenerative arthritis of the right hip. The patient presented for evaluation as an outpatient. After discussion and consideration patient elects to proceed with total hip arthroplasty. The patient is seen preoperatively by Dr. Cervantes and medically cleared for surgery by their primary care physician. Patient is admitted to [facility] on 07/21/2023 for total hip arthroplasty. The procedure is performed without complication or sequelae. The patient is doing well postoperatively. Labs and vital signs are stable on day of discharge. On day of discharge patient's hip incision is healing well. There is minimal erythema. There is no drainage noted at this time. There is minimal soft tissue swelling to the hip and thigh. Patient has full foot and ankle motion without difficulty or pain. Calf is soft and nontender to palpation. Neurovascular status to the right lower extremity is intact. Patient is discharged home in good condition. Please see [facility] rec for accurate list of home medications. Plan - Discharge Summary Discharge Rx Participant: No New Discharge Prescriptions: New Aspirin 325 mg PO BID #60 tab HYDROcodone/APAP 7.5-325MG [Sage 7.5-325] 1 - 2 tab PO Q6H PRN #32 tab PRN Reason: Pain Sennosides [Senokot] 2 tab PO DAILY PRN #60 tablet PRN Reason: Constipation No Action lisinopriL [Prinivil] 10 mg PO HS Metoprolol Succinate [Toprol XL] 50 mg PO DAILY Discharge Medication List lisinopriL [Prinivil] 10 mg PO HS 04/25/14 [History] Aspirin 325 mg PO BID #60 tab 07/21/23 [Rx] HYDROcodone/APAP 7.5-325MG [Sage 7.5-325] 1 - 2 tab PO Q6H PRN #32 tab 07/21/23 [Rx] Metoprolol Succinate [Toprol XL] 50 mg PO DAILY 07/21/23 [History] Sennosides [Senokot] 2 tab PO DAILY PRN #60 tablet 07/21/23 [Rx] Follow up Appointment(s)/Referral(s): Dheeraj Cervantes DO [Doctor of Osteopathic Medicine] - 2 Weeks Activity/Diet/Wound Care/Special Instructions: Weightbearing as tolerated with walker. Leave dressing intact. Dressing may be removed by home care nurse or by patient in 7 days. Then change dressing twice daily until follow up. May shower with initial dressing intact and after removal. If dressing become saturated, please remove. Please take aspirin 325mg twice daily for 30 days to prevent blood clots. Recommend use of compression stockings daily until follow up to help prevent swelling and blood clots. May remove at night before sleeping. Please follow-up with [facility] in 2 weeks and call with any questions or concerns, . Discharge Disposition: HOME WITH HOME HEALTH SERVICES
[2023-07-22] MEDS ORDERED: METOPROLOL SUCCINATE (ER) 50 MG TAB.ER.24H PO SCH (09:00)
[2023-07-22 10:58] LABS: Basophils # (A) 0.02 X 10*3/uL (0.00-0.10); Basophils % (A) 0.2 %; Eosinophils # (A) 0.02 X 10*3/uL (0.04-0.35); Eosinophils % (A) 0.2 %; HCT 33.8 % (37.2-46.3); HGB 11.4 g/dL (12.0-15.0); Lymphocytes # (A) 1.33 X 10*3/uL (0.90-5.00); Lymphocytes % (A) 14.9 %; MCH 28.4 pg (27.0-32.0); MCHC 33.7 g/dL (32.0-37.0); MCV 84.1 FL (80.0-97.0); Mean Platelet Volume 11.3 FL (9.5-12.2); Monocytes # (A) 0.96 X 10*3/uL (0.20-1.00); Monocytes % (A) 10.7 %; NRBC Per 100 WBC 0 X 10*3/uL (0.00-0.01); Neutrophils # (A) 6.59 X 10*3/uL (1.80-7.70); Neutrophils % (A) 73.8 %; Platelet Count 173 X 10*3/uL (140-440); RBC 4.02 X 10*6/uL (4.10-5.20); RDW 14.1 % (11.5-14.5); WBC 8.94 X 10*3/uL (4.50-10.00)
== END 2023-07-22 11:43 | disposition home health service (06) ==
LOC: OR 05:33 → 4SSUR 08:36 → OR 07-22 11:43
PROVIDERS: ATTEND Orthopaedic Surgery
DX: M16.11 Unilateral primary osteoarthritis, right hip (principal); G89.18 Other acute postprocedural pain; I10 Essential (primary) hypertension; K21.9 Gastro-esophageal reflux disease without esophagitis; F10.90 Alcohol use, unspecified, uncomplicated; Z79.899 Other long term (current) drug therapy; Z83.3 Family history of diabetes mellitus
CPT/HCPCS: 97162; 97535; 97166; 64447; 85025; 73501; 73502; 27130; C1776; J2250; J0330; J1100; J2710; J0690 ×2; J2405; J3010; J1170 ×2; J2795; J2704; 86850; 86900; 86901

== ENCOUNTER → 2023-12-05 | Outpatient (CLI) | payer MEDICARE ==
[2023-12-05 13:22] LABS: INR 0.9 (<1.2); Partial Thromboplastin Time 25.5 sec (22.0-30.0); Prothrombin Time 10.4 sec (10.0-12.5)
[2023-12-05 16:32] LABS: HCT 40.9 % (37.2-46.3); HGB 13.4 g/dL (12.0-15.0); MCH 27.1 pg (27.0-32.0); MCHC 32.8 g/dL (32.0-37.0); MCV 82.8 FL (80.0-97.0); Mean Platelet Volume 10.9 FL (9.5-12.2); NRBC Per 100 WBC 0 X 10*3/uL (0.00-0.01); Platelet Count 221 X 10*3/uL (140-440); RBC 4.94 X 10*6/uL (4.10-5.20); RDW 14.6 % (11.5-14.5); WBC 5.12 X 10*3/uL (4.50-10.00)
[2023-12-05 16:41] LABS: ALT 13 U/L (8-44); AST 20 U/L (13-35); Albumin 4.2 g/dL (3.8-4.9); Alkaline Phosphatase 107 U/L (41-126); BUN/Creat Ratio 23.43 Ratio (12.00-20.00); Blood Urea Nitrogen 16.4 mg/dL (9.0-27.0); Calcium 9.3 mg/dL (8.7-10.3); Carbon Dioxide 25.3 mmol/L (21.6-31.8); Chloride 104 mmol/L (96-109); Globulin 2.1 g/dL (1.6-3.3); Glucose 97 mg/dL (70-110); Potassium 4.2 mmol/L (3.5-5.5); Sodium 139 mmol/L (135-145); Total Bilirubin 0.4 mg/dL (0.3-1.2); Total Protein 6.3 g/dL (6.2-8.2)
== END | disposition home or self-care (01) ==
LOC: LABPAT 12:48
PROVIDERS: ATTEND Orthopaedic Surgery
DX: Z01.812 Encounter for preprocedural laboratory examination (principal); Z22.322 Carrier or suspected carrier of Methicillin resistant Staphylococcus aureus; M16.12 Unilateral primary osteoarthritis, left hip
CPT/HCPCS: 80053; 85027; 85610; 85730; 86850; 86900; 86901; 87070

== ENCOUNTER 2023-12-16 05:40 | Day surgery (SDC) | payer MEDICARE ==
[2023-12-11 14:44] VITALS: BMI 35.2
[~2023-12-16 05:40] MED LIST changes: -ACETAMINOPHEN TAB 500 MG TAB PO PRN; -GABAPENTIN 300 MG CAP PO PRN; -MELOXICAM 7.5 MG TAB PO PRN
[2023-12-16] MEDS: LACTATED RINGERS 1,000 ML IV ONE ×2 (05:55→08:23)
[2023-12-16] MEDS ORDERED: ONDANSETRON 4 MG/2 ML VIAL ONE (06:29)
[2023-12-16] MEDS: GABAPENTIN 300 MG CAP PO PRN (06:41)
[2023-12-16] MEDS: MELOXICAM 7.5 MG TAB PO PRN (06:41)
[2023-12-16] MEDS: DEXAMETHASONE SOD PHOSPHATE 4 MG/ML 1 ML VIAL IV ONE (06:41)
[2023-12-16] MEDS: ONDANSETRON 4 MG/2 ML VIAL IVP ONE (06:41)
[2023-12-16] MEDS: ACETAMINOPHEN TAB 500 MG TAB PO PRN (06:41)
[2023-12-16] MEDS: fentaNYL (PF) 50 MCG/1 ML VIAL IVP ONE (06:44)
[2023-12-16] MEDS: MIDAZOLAM 2 MG/2 ML VIAL IVP ONE (06:44)
[2023-12-16] MEDS ORDERED: PROPOFOL 10 MG/ML 20 ML VIAL IV ONE (06:55)
[2023-12-16] MEDS ORDERED: fentaNYL (PF) 50 MCG/ML 2 ML AMP ONE (06:55)
[2023-12-16] MEDS ORDERED: ePHEDrine 50 MG/ML 1 ML VIAL ONE (06:55)
[2023-12-16] MEDS ORDERED: TRANEXAMIC 1,000 MG/100ML-NACL PREMIX BAG ONE (06:55)
[2023-12-16] MEDS ORDERED: PHENYLEPHRINE 10 MG/ML VIAL ONE (06:55)
[2023-12-16] MEDS ORDERED: WATER FOR INJECTION, STERILE 10 ML VIAL IV ONE (06:55)
[2023-12-16] MEDS ORDERED: MIDAZOLAM 2 MG/2 ML VIAL ONE (06:55)
[2023-12-16] MEDS ORDERED: ROPIVACAINE 5 MG/ML 30 ML VIAL ONE (06:55)
[2023-12-16] MEDS ORDERED: HYDROmorphone 0.5 MG/0.5 ML SYRINGE IVP PRN ×4 (07:00→08:36)
[2023-12-16] MEDS ORDERED: MIDAZOLAM 2 MG/2 ML VIAL IV PRN (07:00)
[2023-12-16] MEDS: ROPIVACAINE 5 MG/ML 30 ML VIAL MISCELLANE ONE (07:22)
[2023-12-16] MEDS: ceFAZolin 1,000 MG in SODIUM CHLORIDE 0.9% 1,000 ML IRRIGATION ONE (07:28)
--- NOTE | 2023-12-16 08:11 | P.OP ---
Date of Procedure: 12/16/23 Preoperative Diagnosis: severe osteoarthritis left hip Postoperative Diagnosis: severe osteoarthritis left hip Procedure(s) Performed: left total hip arthroplasty with a direct anterior approach Implants: [employer] Polarstem standard size 2 with a collar [employer] R3, 3 hole hemispherical acetabular shell, 50 mm [employer]hew Reflection 6.5 mm cancellus screw, 20 mm, 25 mm [employer] R3, XLPE 20 acetabular liner [employer] Oxinium femoral head 36 mm, +0 All components were press-fit. The articulation is Oxinium on polyethylene. Anesthesia: spinal Surgeon: Dheeraj Cervantes Roving Frame Tender #1: Millie Snider Estimated Blood Loss (ml): 200 Pathology: none sent Condition: stable Disposition: PACU Indications for Procedure: After failure of conservative treatment we discussed the surgical and nons urgical treatment options at length. Patient wishes to proceed with a total hip arthroplasty with a direct anterior approach. Complications specific to this procedure were discussed at length, including but not limited to infection, leg length discrepancy, dislocation, nerve injury, and fracture. Covid-19 was also discussed at length with the patient, and they are aware of the current policies and procedures. The patient was given the option of delaying surgery, but they elect to proceed knowing these risks. Patient is aware of all these complications and informed consent was obtained Operative Findings: the operative findings are consistent with severe osteoarthritis of the left hip Description of Procedure: The patient was seen and evaluated in the preoperative area and the consent was reviewed. The operative site was marked with a skin marker. The patient verified the procedure and operative site. A HERB block was placed by anesthesia in the preoperative area. The patient was then brought to the operating room and given preoperative antibiotics intravenously. 1 g of Tranexamic acid was also given intravenously. A spinal anesthetic was administered by the anesthesia department. The patient was then placed on the [place] table with the bony prominences well-padded. The hip area was then prepped with a ChloraPrep solution and draped in the usual sterile fashion. A universal timeout was then performed, which confirmed the patient's name, surgical site, ALLERGIES, and procedure being performed on the consent. Next the incision site was located at 1 cm distal and 4 cm lateral to the anterior superior iliac spine. The skin and subcutaneous tissues were sharply incised. Incision was carefully dissected down to the fascia overlying the tensor fascia immanuel muscle. This fascia was then incised in line with the muscle fibers. Care was taken to stay laterally in order to avoid injuring the lateral femoral cutaneous nerve. Next, using blunt finger dissection, the tensor fascia immanuel muscle was dissected off its investing fascia. The muscle was then carefully retracted laterally with a cobra retractor over the lateral neck of the femur. Next, the circumflex vessels were identified and cauterized using the Aquamantis device. The anterior hip capsule was then exposed. The capsule was then opened and an inverted T fashion. The retractors were then placed intracapsularly. The retractors were maintained intracapsular throughout the procedure. The proximal femur was then visualized. Fluoroscopic x-rays were then taken in order to evaluate the preoperative leg lengths. A small amount of traction was placed on the leg. The femoral neck was then osteotomized at the appropriate level above the lesser trochanter. A small wedge of bone was then removed from the remaining femoral head. Next, using a corkscrew the femoral head was removed from the acetabulum. On gross visual inspection, the femoral head had complete loss of articular cartilage and multiple periarticular osteophytes. The femoral head was then measured. Attention was then turned to the acetabulum. The acetabulum was exposed and any remaining labrum was excised. Sequential reaming of the acetabulum was performed using fluoroscopic guidance until there was a good bed of bleeding cancellus bone. When the appropriate size was reached, a trial was then placed. The position and fit of the trial was checked with fluoroscopy. The trial was then removed. Then, using fluoroscopic guidance, the final implant was impacted at 20 of anteversion and 40 of abduction, and fully seated in the acetabulum. 2 screws were then placed in the acetabulum. Again fluoroscopy was used to check position of the screws. Next, the liner was then impacted, with a 20 elevated liner located in the anterior superior quadrant. Component locking was confirmed. Attention was then directed to the femur. With the aid of the [place] table, the femur was externally rotated to approximately 130, extended, and adducted under the opposite leg. A side hook was then placed under the proximal femur, and the side hook elevator was used to elevate the proximal femur while releasing the capsule. Retractors were then placed. A capsular release was performed, as well as a release of the conjoined tendon, which afforded excellent v isualization of the proximal femur. Next, a box osteotome was used to lateralize the proximal femur. A smasher hand was then used to locate the femoral canal. Sequential broaching was then performed with appropriate size which afforded excellent fixation in the proximal femur. A trial was then placed with appropriate head and neck, and the hip was gently reduced with the aid of the [place] table. Fluoroscopy was then used to check position of the components, as well as to evaluate the leg lengths and offset. The leg lengths and offset were measured as closely as possible to ensure stability of the hip. The hip was then gently dislocated and the trials were then removed. Final implants were then impacted and the hip was again reduced. Final fluoroscopic x-rays confirmed that the components were in anatomic position. The leg lengths and offset were measured and were found to coincide with the trial measurements. The hip was also taken through range of motion, and found to be stable. The hip was then copiously irrigated with antibiotic solution with pulsatile lavage. The hip was then irrigated with Irrisept solution. The soft tissues were then injected with a ropivacaine solution. A second dose of 1 g of Tranexamic acid was also given intravenously. The fascia was then closed with 2-0 strata fix suture. The subcutaneous tissue was closed with 3-0 Vicryl. The subcuticular tissue was closed with 3-0 strata fix suture. The skin was then closed with Exofin skin glue. After the glue and dried, and Optifoam silver impregnated dressing was applied. The patient was t hen transferred to the recovery room in stable condition. The pastoral assistant VERN iRver was required due to the complexity of surgery, and the need for skilled surgical product sales consultant for positioning, draping, exposure, retraction, and closure of the wound.
[2023-12-16] MEDS ORDERED: ONDANSETRON 4 MG/2 ML VIAL IVP PRN (08:36)
[2023-12-16] MEDS ORDERED: NALOXONE 0.4 MG/ML 1 ML VIAL IV PRN (08:36)
[2023-12-16] MEDS ORDERED: MAGNESIUM HYDROXIDE 2,400 MG/30 ML CUP PO PRN (08:36)
[2023-12-16] MEDS ORDERED: HYDROcodone/APAP 7.5-325MG 1 EACH TAB PO PRN (08:39)
--- NOTE | 2023-12-16 08:52 | XR ---
Fluoroscopy INDICATION: Pain FINDINGS: Fluoroscopy time: 33 seconds. Total dose area product (DAP) in uGy*m?, mGy*cm? (or similar): 2.4787 Images obtained: 5. IMPRESSION: 1. Documentation of fluoroscopy.
--- NOTE | 2023-12-16 09:18 | XR ---
EXAMINATION TYPE: XR Hip Limited LT DATE OF EXAM: 12/16/2023 COMPARISON: None HISTORY: Postop left hip replacement TECHNIQUE: AP left hip FINDINGS: There is a femoral prosthesis with acetabular component. No acute fractures are evident pos t replacement. Some postsurgical soft tissue changes are evident. IMPRESSION: 1. No acute fracture post left hip replacement.
--- NOTE | 2023-12-16 10:30 | P.ANPRN ---
Procedure Note - Anesthesia - Nerve Block Performed Left Eamon Single Time Out Performed: Yes ([id number]) Date of Procedure: 12/16/23 Procedure Start Time: 06:44 Procedure Stop Time: 06:49 Location of Patient: PreOp Indication: Acute Post-Operative Pain, Requested by Surgeon Specifically requested for management of pain by DrMartha: Dheeraj Cervantes Sedation Type: Sedate with meaningful contact maintained Preparation: Sterile Prep Position: Supine Catheter: None Needle Types: Pajunk Needle Gauge: 21 Ultrasound used to visualize needle placement: Yes Ultrasound used to observe medication spread: Yes Injectate: 0.5% Ropivacaine (see comment for volume) (30cc) Blood Aspirated: No Pain Paresthesia on Injection Noted: No Resistance on Injection: Normal Image Stored and Saved: Yes Events: Uneventful and Well Tolerated
[2023-12-16] MEDS: LACTATED RINGERS 1,000 ML IV SCH (11:52)
[2023-12-16] MEDS: SODIUM CHLORIDE 0.9% 1,000 ML IV SCH (12:40)
[2023-12-16] MEDS: HYDROcodone/APAP 7.5-325MG 1 EACH TAB PO PRN (12:43)
[2023-12-16] MEDS: ASPIRIN 325 MG TAB PO SCH (19:46)
[2023-12-16] MEDS: SENNOSIDES-DOCUSATE SODIUM 1 EACH TAB PO SCH (19:46)
--- NOTE | 2023-12-17 08:53 | P.CONS ---
History of Present Illness - Reason for Consult Consult date: 12/17/23 Medical management - Chief Complaint Left hip osteoarthritis. - History of Present Illness The patient is a 68-year-old white female essentially admitted for left hip arthroplasty. The patient is seen postop day #1 doing quite well. Pain is nominal. She has known history of well-controlled hypertension. No fever chills no voiding difficulty stated. No significant nausea, vomiting or diarrh ea. Review of Systems Constitutional: Denies chills, Denies fever Eyes: denies blurred vision, denies pain Ears, nose, mouth and throat: Denies headache, Denies sore throat Cardiovascular: Denies chest pain, Denies shortness of breath Respiratory: Denies cough Gastrointestinal: Denies abdominal pain, Denies diarrhea, Denies nausea, Denies vomiting Past Medical History Past Medical History: GERD/Reflux, Hypertension, Musculoskeletal Disorder, Osteoarthritis (OA) Additional Past Medical History / Comment(s): Palpitations, hemorrhoids, slight bulging disc, acid refux resolved. History of Any Multi-Drug Resistant Organisms: None Reported Past Surgical History: Joint Replacement Additional Past Surgical History / Comment(s): D&C, throat polyp removed, colonoscopy, benign growth removed from cheek, right hip replacement, left hip replacement 12/15. Past Anesthesia/Blood Transfusion Reactions: No Reported Reaction Past Psychological History: No Psychological Hx Reported Smoking Status: Never smoker Past Alcohol Use History: None Reported Past Drug Use History: None Reported - Past Family History Mother Family Medical History: No Reported History Medications and Allergies Home Medications Medication Instructions Recorded Confirmed Type lisinopriL [Prinivil] 10 mg PO HS 04/25/14 12/16/23 History Metoprolol Succinate [Toprol XL] 50 mg PO HS 07/21/23 12/16/23 History Melatonin 3 mg PO HS 12/11/23 12/16/23 History Aspirin 325 mg PO BID #60 tab 12/16/23 Rx HYDROcodone/APAP 7.5-325MG [[place] 1 - 2 tab PO Q6H PRN #32 tab 12/16/23 Rx 7.5-325] Sennosides [Senokot] 2 tab PO DAILY PRN #60 tablet 12/16/23 Rx Allergies Allergy/AdvReac Type Severity Reaction Status Date / Time No Known Allergies Allergy Verified 12/16/23 06:02 Physical Exam Vitals: Vital Signs Temp Pulse Pulse Resp BP BP Pulse Ox 12/17/23 07:50 97.9 F 54 L 18 119/69 95 12/17/23 01:17 98.1 F 63 15 113/64 96 12/16/23 19:16 98.1 F 64 15 117/71 94 L 12/16/23 14:44 98.4 F 80 17 120/70 94 L 12/16/23 11:55 97.7 F 63 16 124/76 95 12/16/23 11:34 58 L 16 123/62 98 12/16/23 11:04 56 L 16 119/56 97 12/16/23 10:34 59 L 16 123/64 95 12/16/23 10:04 57 L 16 136/60 95 12/16/23 09:34 57 L 16 128/59 95 12/16/23 09:19 57 L 16 135/59 99 12/16/23 09:04 57 L 16 148/67 99 Intake and Output 12/16/23 12/17/23 12/17/23 22:59 06:59 14:59 Other: # Voids 1 2 - Constitutional General appearance: average body habitus, cooperative, no no acute distress - EENT Eyes: EOMI - Respiratory Respiratory: bilateral: diminished - Cardiovascular Rhythm: regular Heart sounds: normal: S1, S2 Abnormal Heart Sounds: no S3 Gallop - Gastrointestinal General gastrointestinal: soft, no tenderness - Neurologic Neurologic: CNII-XII intact - Psychiatric Psychiatric: A&O x's 3 Assessment and Plan (1) Osteoarthritis of left hip Current Visit: Yes Status: Acute Code(s): M16.12 - UNILATERAL PRIMARY OSTEOARTHRITIS, LEFT HIP SNOMED Code(s): 510069644476692 (2) Gastroesophageal reflux disease Current Visit: No Status: Acute Code(s): K21.9 - GASTRO-ESOPHAGEAL REFLUX DISEASE WITHOUT ESOPHAGITIS SNOMED Code(s): 941319398 (3) Hypertension Current Visit: No Status: Acute Code(s): I10 - ESSENTIAL (PRIMARY) HYPERTENSION SNOMED Code(s): 15640497 Plan: Reconcile home medications. Anticipate discharge in next 24-48 hours. Appropriate postop protocols per orthopedic team. Will continue to follow as necessary. PT to be instituted per protocol. Check labs in a.m. Time with Patient: Greater than 30
[2023-12-17 08:54] LABS: Basophils # (A) 0.02 X 10*3/uL (0.00-0.10); Basophils % (A) 0.2 %; Eosinophils # (A) 0 X 10*3/uL (0.04-0.35); Eosinophils % (A) 0 %; HCT 34.7 % (37.2-46.3); HGB 11.6 g/dL (12.0-15.0); Lymphocytes # (A) 1.49 X 10*3/uL (0.90-5.00); MCHC 33.4 g/dL (32.0-37.0); MCV 80.9 FL (80.0-97.0); Mean Platelet Volume 10.8 FL (9.5-12.2); Monocytes # (A) 1.04 X 10*3/uL (0.20-1.00); Monocytes % (A) 8.4 %; NRBC Per 100 WBC 0 X 10*3/uL (0.00-0.01); Neutrophils # (A) 9.78 X 10*3/uL (1.80-7.70); Platelet Count 232 X 10*3/uL (140-440); RBC 4.29 X 10*6/uL (4.10-5.20); RDW 15.1 % (11.5-14.5); WBC 12.38 X 10*3/uL (4.50-10.00)
[2023-12-17 08:59] VITALS: BP 119/69; PULSE 54; RESP 18; TEMP 97.9
--- NOTE | 2023-12-17 09:45 | P.DS ---
Providers Expected date of discharge: 12/17/23 Attending physician: Dheeraj Cervantes Consults: 12/16/23 08:36 Consult Physician Routine Consulting Provider: Francis Lainez Consult Reason/Comments: medical management Do you want consulting provider notified?: Yes Primary care physician: Francis Lainez - Discharge Diagnosis(es) (1) Osteoarthritis of left hip Current Visit: Yes Status: Acute (2) S/P total left hip arthroplasty Current Visit: Yes Status: Acute Hospital Course: This is a 68-year-old female with known history of degenerative arthritis of the left hip. The patient presented for evaluation as an outpatient. After discussion and consideration patient elects to proceed with total hip arthroplasty. The patient is seen preoperatively by Dr. Cervantes and medically cleared for surgery by their primary care physician. Patient is admitted to [facility] on 12/16/2023 for total hip arthroplasty. The procedure is performed without complication or sequelae. The patient is doing well postoperatively. Labs and vital signs are stable on day o f discharge. On day of discharge patient's hip incision is healing well. There is minimal erythema. There is no drainage noted at this time. There is minimal soft tissue swelling to the hip and thigh. Patient has full foot and ankle motion without difficulty or pain. Calf is soft and nontender to palpation. Neurovascular status to the left lower extremity is intact. Patient is discharged home in good condition. Please see [facility] rec for accurate list of home medications. Plan - Discharge Summary Discharge Rx Participant: No New Discharge Prescriptions: New Aspirin 325 mg PO BID #60 tab HYDROcodone/APAP 7.5-325MG [[place] 7.5-325] 1 - 2 tab PO Q6H PRN #32 tab PRN Reason: Pain Sennosides [Senokot] 2 tab PO DAILY PRN #60 tablet PRN Reason: Constipation No Action lisinopriL [Prinivil] 10 mg PO HS Metoprolol Succinate [Toprol XL] 50 mg PO HS Melatonin 3 mg PO HS Discharge Medication List lisinopriL [Prinivil] 10 mg PO HS 04/25/14 [History] Metoprolol Succinate [Toprol XL] 50 mg PO HS 07/21/23 [History] Melatonin 3 mg PO HS 12/11/23 [History] Aspirin 325 mg PO BID #60 tab 12/16/23 [Rx] HYDROcodone/APAP 7.5-325MG [[place] 7.5-325] 1 - 2 tab PO Q6H PRN #32 tab 12/16/23 [Rx] Sennosides [Senokot] 2 tab PO DAILY PRN #60 tablet 12/16/23 [Rx] Follow up Appointment(s)/Referral(s): Dheeraj Cervantes DO [Doctor of Osteopathic Medicine] - 2 Weeks Activity/Diet/Wound Care/Special Instructions: Weightbearing as tolerated with walker. Leave dressing intact. Dressing may be removed by home care nurse or by patient in 7 days. Then change dressing twice daily until follow up. May shower with initial dressing intact and after removal. If dressing become saturated, please remove. Please take aspirin 325mg twice daily for 30 days to prevent blood clots. Recommend use of compression stockings daily until follow up to help prevent swelling and blood clots. May remove at night before sleeping. Please follow-up with [facility] in 2 weeks and call with any questions or concerns, . Discharge Disposition: HOME WITH HOME HEALTH SERVICES
[2023-12-17] MEDS ORDERED: lisinopriL 10 MG TAB PO SCH (21:00)
[2023-12-17] MEDS ORDERED: METOPROLOL SUCCINATE (ER) 50 MG TAB.ER.24H PO SCH (21:00)
[2023-12-17] MEDS ORDERED: MELATONIN 3 MG TABLET PO SCH (21:00)
== END 2023-12-17 12:07 | disposition home health service (06) ==
LOC: OR 05:40 → 4SSUR 08:28 → OR 12-17 12:07
PROVIDERS: ATTEND Orthopaedic Surgery
DX: M16.12 Unilateral primary osteoarthritis, left hip (principal); G89.18 Other acute postprocedural pain; I10 Essential (primary) hypertension; K21.9 Gastro-esophageal reflux disease without esophagitis; Z79.82 Long term (current) use of aspirin; Z79.899 Other long term (current) drug therapy
CPT/HCPCS: 94760; 97161; 97166; 64447; 85025; 73501; 27130; C1776; J2250; J1100; J0690 ×3; J2405; J3010 ×2; J2795; J2704; J2371

== ENCOUNTER 2024-02-16 02:52 | Emergency (ER) | payer MEDICARE ==
--- NOTE | 2024-02-16 03:21 | ED ---
Abdominal Pain HPI - General Chief Complaint: Abdominal Pain Stated Complaint: Chest pain Time Seen by Provider: 02/16/24 02:59 Source: family Mode of arrival: wheelchair Limitations: no limitations - History of Present Illness Initial Comments: This patient is a 68-year-old woman who presents with epigastric abdominal pain that has come on within the past couple of hours. She states the pain became severe and then was associated with some nausea and vomiting. MD Complaint: abdominal pain -: hour(s) Location: epigastric Radiation: none Migration to: no migration Severity: moderate Quality: aching Consistency: constant Improves With: nothing Worsens With: nothing Associated Symptoms: nausea, vomiting - Related Data Home Medications Medication Instructions Recorded Confirmed lisinopriL [Prinivil] 10 mg PO HS 04/25/14 02/24/24 Metoprolol Succinate [Toprol XL] 50 mg PO HS 07/21/23 02/24/24 Previous Rx's Medication Instructions Recorded HYDROcodone/APAP 5-325MG [[place] 1 tab PO Q6HR PRN 3 Days #12 tab 02/26/24 5-325] Ibuprofen [Motrin] 600 mg PO Q8HR PRN #30 tab 02/26/24 cefUROXime axetiL [Ceftin] 500 mg PO BID 10 Days #20 tab 02/26/24 metroNIDAZOLE [Flagyl] 500 mg PO TID 10 Days #30 tab 02/26/24 Allergies Allergy/AdvReac Type Severity Reaction Status Date / Time No Known Allergies Allergy Verified 02/24/24 18:18 Review of Systems ROS Statement: Those systems with pertinent positive or pertinent negative responses have been documented in the HPI. ROS Other: All systems not noted in ROS Statement are negative. Constitutional: Denies: fever, chills, weakness Respiratory: Denies: cough, dyspnea Cardiovascular: Denies: chest pain, palpitations, edema Gastrointestinal: Reports: abdominal pain, nausea, vomiting. Denies: diarrhea, constipation, hematemesis, melena, hematochezia Genitourinary: Denies: dysuria, hematuria Musculoskeletal: Denies: back pain Skin: Denies: rash Neurological: Denies: headache, weakness, numbness Past Medical History Past Medical History: GERD/Reflux, Hypertension, Musculoskeletal Disorder, Osteoarthritis (OA) Additional Past Medical History / Comment(s): Palpitations, hemorrhoids, slight bulging disc, acid refux resolved. History of Any Multi-Drug Resistant Organisms: None Reported Past Surgical History: Joint Replacement Additional Past Surgical History / Comment(s): D&C, throat polyp removed, colonoscopy, benign growth removed from cheek, right hip replacement, left hip replacement 12/15. Past Anesthesia/Blood Transfusion Reactions: No Reported Reaction Past Psychological History: No Psychological Hx Reported Smoking Status: Never smoker Past Alcohol Use History: None Reported Past Drug Use History: None Reported - Past Family History Mother Family Medical History: No Reported History General Exam Limitations: no limitations General appearance: alert, in no apparent distress Head exam: Present: atraumatic, normocephalic Eye exam: Present: normal appearance. Absent: scleral icterus, conjunctival injection ENT exam: Present: normal oropharynx Neck exam: Present: normal inspection Respiratory exam: Present: normal lung sounds bilaterally. Absent: respiratory distress, wheezes, rales, rhonchi, stridor, accessory muscle use Cardiovascular Exam: Present: regular rate, normal rhythm, normal heart sounds. Absent: systolic murmur, diastolic murmur, rubs, gallop GI/Abdominal exam: Present: soft, tenderness (Epigastric). Absent: distended, guarding, rebound, rigid, mass, pulsatile mass Extremities exam: Present: normal inspection, normal capillary refill. Absent: pedal edema, calf tenderness Back exam: Present: normal inspection. Absent: CVA tenderness (R), CVA tenderness (L) Neurological exam: Present: alert Skin exam: Present: warm, dry, intact, normal color. Absent: rash Course Vital Signs 02/16/24 02/16/24 02/16/24 02:54 03:14 03:23 Temperature 97.6 F Pulse Rate 61 59 L 57 L Respiratory 18 19 13 Rate Blood Pressure 190/68 190/84 190/84 O2 Sat by Pulse 98 98 97 Oximetry 02/16/24 02/16/24 02/16/24 03:30 03:33 03:36 Temperature Pulse Rate 58 L 56 L 57 L Respiratory 13 13 13 Rate Blood Pressure 185/79 174/86 176/76 O2 Sat by Pulse 97 98 Oximetry 02/16/24 02/16/24 02/16/24 03:39 03:46 04:01 Temperature Pulse Rate 56 L 54 L 54 L Respiratory 14 14 13 Rate Blood Pressure 156/77 159/75 153/75 O2 Sat by Pulse 96 98 96 Oximetry 02/16/24 02/16/24 06:09 07:08 Temperature 98.4 F Pulse Rate 57 L 58 L Respiratory 15 21 Rate Blood Pressure 153/75 148/63 O2 Sat by Pulse 96 96 Oximetry Medical Decision Making - Medical Decision Making The patient had chest x-ray that I interpreted as negative for acute infiltrate, pneumothorax, congestive heart failure The patient had a flare of the pain that also radiated to her back. Given the hypertension, CT scan of the chest and abdomen was obtained which I interpreted as being negative for aortic dissection. No free air or obstruction. Was pt. sent in by a medical professional or institution (, PA, [employer]ER, urgent care, hospital, or detention...) When possible be specific @ -[No] Did you speak to anyone other than the patient for history (EMS, parent, family, police, friend...)? What history was obtained from this source @ -[No] Did you review nursing and triage notes (agree or disagree)? Why? @ -[I reviewed and agree with nursing and triage notes] Were old charts reviewed (outside hosp., previous admission, EMS record, old EKG, old radiological studies, urgent care reports/EKG's, detention records)? Report findings @ -[No old charts were reviewed] Differential Diagnosis (chest pain, altered mental status, abdominal pain women, abdominal pain men, vaginal bleeding, weakness, fever, dyspnea, syncope, headache, dizziness, GI bleed, back pain, seizure, CVA, palpatations, mental health, musculoskeletal)? @ -Differential Abdominal Pain Women: Appendicitis, Cholecystitis, diverticulosis, ischemic bowel, pancreatitis, hepatitis, UTI, gastroenteritis, AAA, incarcerated hernia, bowel obstruction, constipation, inflammatory bowel, hepatitis, peptic ulcer disease, splenic infarction, perforated viscus, vulvitis, ovarian torsion, PID, kidney stone, placenta abruption, this is not meant to be an all-inclusive list EKG interpreted by me (3pts min.). @ -[I interpreted as above] X-rays interpreted by me (1pt min.). @ -[I interpreted as above CT interpreted by me (1pt min.). @ -[I interpreted as above U/S interpreted by me (1pt. min.). @ -[None done] What testing was considered but not performed or refused? (CT, X-rays, U/S, labs)? Why? @ -[None] What meds were considered but not given or refused? Why? @ -[None] Did you discuss the management of the patient with other professionals (professionals i.e. , PA, [employer]ESS P[employer]ER, lab, RT, psych nurse, social work instructor, general manager, teacher, intelligence officer, supervisor case loading)? Give summary @ -[No] Was smoking cessation discussed for >3mins.? @ -[No] Was critical care preformed (if so, how long)? @ -[No] Were there social determinants of health that impacted care today? How? (Homelessness, low income, unemployed, alcoholism, drug addiction, transportation, low edu. Level, literacy, decrease access to med. care, long-term, rehab)? @ -[No] Was there de-escalation of care discussed even if they declined (Discuss DNR or withdrawal of care, Hospice)? DNR status @ -[No] What co-morbidities impacted this encounter? (DM, HTN, Smoking, COPD, CAD, Cancer, CVA, ARF, Chemo, Hep., AIDS, mental health diagnosis, sleep apnea, morbid obesity)? @ -[Hypertension Was patient admitted / discharged? Hospital course, mention meds given and route, prescriptions, significant lab abnormalities, going to OR and other pertinent info. @ -[Patient is a 68-year-old woman here for epigastric pain that had come on tonight. The patient had studies and during the workup the pain became worse and radiated to her back. She did have significant hypertension and therefore had CT scan which did not reveal evidence of dissection/aortic problem. The patient did have improvement with treatment. At this point possibility of gastritis/esophagitis/biliary conditions remain. Discussed possible admission but at this point patient feeling better and would like to continue as outpatient. She does appear to stable, given her marked improvement. Discussed appropriate further care and follow-up as well as return parameters. Undiagnosed new problem with uncertain prognosis? @ -[No] Drug Therapy requiring intensive monitoring for toxicity (Heparin, Nitro, Insulin, Cardizem)? @ -[No] Were any procedures done? @ -[No] Diagnosis/symptom? @ -[Acute abdominal pain, suspect gastritis Hypertension, acute on chronic Acute, or Chronic, or Acute on Chronic? @ -[Acute Uncomplicated (without systemic symptoms) or Complicated (systemic symptoms)? @ -[Uncomplicated Side effects of treatment? @ -[No] Exacerbation, Progression, or Severe Exacerbation? @ -[No] Poses a threat to life or bodily function? How? (Chest pain, [place], [place], pneumonia, PE, COPD, DKA, ARF, appy, cholecystitis, CVA, Diverticulitis, Homicidal, Suicidal, threat to staff... and all critical care pts) @ -[No] - Lab Data Result diagrams: 02/16/24 03:22 02/16/24 03:22 Lab Results 02/16/24 02/16/24 02/16/24 Range/Units 03:22 03:22 03:22 WBC 9.0 (3.8-10.6) k/uL RBC 4.92 (3.80-5.40) m/uL Hgb 13.0 (11.4-16.0) gm/dL Hct 41.3 (34.0-46.0) % MCV 84.0 (80.0-100.0) fL MCH 26.4 (25.0-35.0) pg MCHC 31.5 (31.0-37.0) g/dL RDW 14.0 (11.5-15.5) % Plt Count 248 (150-450) k/uL MPV 8.2 Neutrophils % 55 % Lymphocytes % 33 % Monocytes % 6 % Eosinophils % 3 % Basophils % 1 % Neutrophils # 5.0 (1.3-7.7) k/uL Lymphocytes # 3.0 (1.0-4.8) k/uL Monocytes # 0.6 (0-1.0) k/uL Eosinophils # 0.2 (0-0.7) k/uL Basophils # 0.0 (0-0.2) k/uL D-Dimer (<0.60) mg/L FEU Sodium 139 (137-145) mmol/L Potassium 4.3 (3.5-5.1) mmol/L Chloride 108 H (98-107) mmol/L Carbon Dioxide 19 L (22-30) mmol/L Anion Gap 12 mmol/L BUN 17 (7-17) mg/dL Creatinine 0.57 (0.52-1.04) mg/dL Est GFR (CKD-EPI)AfAm >90 (>60 ml/min/1.73 sqM) Est GFR (CKD-EPI)NonAf >90 (>60 ml/min/1.73 sqM) Glucose 129 H (74-99) mg/dL Plasma Lactic Acid Yobany 2.0 (0.7-2.0) mmol/L Calcium 9.4 (8.4-10.2) mg/dL Total Bilirubin 0.4 (0.2-1.3) mg/dL AST 27 (14-36) U/L ALT 16 (4-34) U/L Alkaline Phosphatase 92 (38-126) U/L Troponin I (0.000-0.034) ng/mL Total Protein 6.7 (6.3-8.2) g/dL Albumin 4.3 (3.5-5.0) g/dL Amylase 44 (30-110) U/L Lipase 189 (23-300) U/L 02/16/24 02/16/24 Range/Units 03:22 03:22 WBC (3.8-10.6) k/uL RBC (3.80-5.40) m/uL Hgb (11.4-16.0) gm/dL Hct (34.0-46.0) % MCV (80.0-100.0) fL MCH (25.0-35.0) pg MCHC (31.0-37.0) g/dL RDW (11.5-15.5) % Plt Count (150-450) k/uL MPV Neutrophils % % Lymphocytes % % Monocytes % % Eosinophils % % Basophils % % Neutrophils # (1.3-7.7) k/uL Lymphocytes # (1.0-4.8) k/uL Monocytes # (0-1.0) k/uL Eosinophils # (0-0.7) k/uL Basophils # (0-0.2) k/uL D-Dimer 1.11 H (<0.60) mg/L FEU Sodium (137-145) mmol/L Potassium (3.5-5.1) mmol/L Chloride (98-107) mmol/L Carbon Dioxide (22-30) mmol/L Anion Gap mmol/L BUN (7-17) mg/dL Creatinine (0.52-1.04) mg/dL Est GFR (CKD-EPI)AfAm (>60 ml/min/1.73 sqM) Est GFR (CKD-EPI)NonAf (>60 ml/min/1.73 sqM) Glucose (74-99) mg/dL Plasma Lactic Acid Yobany (0.7-2.0) mmol/L Calcium (8.4-10.2) mg/dL Total Bilirubin (0.2-1.3) mg/dL AST (14-36) U/L ALT (4-34) U/L Alkaline Phosphatase (38-126) U/L Troponin I <0.012 (0.000-0.034) ng/mL Total Protein (6.3-8.2) g/dL Albumin (3.5-5.0) g/dL Amylase (30-110) U/L Lipase (23-300) U/L - EKG Data -: EKG Interpreted by [place] EKG shows normal: sinus rhythm, intervals (NV interval 141 ms, normal QRS duration normal 102 ms, normal QTc 474 ms, prolonged), QRS complexes (Incomplete right bundle branch block) Rate: normal (62 bpm) Disposition Clinical Impression: Gastritis Disposition: HOME SELF-CARE Condition: Good Instructions (If sedation given, give patient instructions): Gastritis (ED) Is patient prescribed a controlled substance at d/c from ED?: No Referrals: Francis Lainez MD [Primary Care Provider] - 1-2 days Syeda Robledo MD [STAFF PHYSICIAN] - 1-2 days
[2024-02-16] MEDS: METOPROLOL TARTRATE 5 MG/5 ML VIAL IVP STA (03:23)
[2024-02-16] MEDS: MORPHINE SULFATE 4 MG/ML SYRINGE IV STA (03:24)
[2024-02-16 03:34] LABS: Basophils % (A) 1 %; Eosinophils # (A) 0.2 k/uL (0-0.7); Eosinophils % (A) 3 %; HCT 41.3 % (34.0-46.0); Lymphocytes % (A) 33 %; MCH 26.4 pg (25.0-35.0); MCHC 31.5 g/dL (31.0-37.0); Mean Platelet Volume 8.2; Monocytes # (A) 0.6 k/uL (0-1.0); Monocytes % (A) 6 %; Neutrophils % (A) 55 %; Platelet Count 248 k/uL (150-450); RBC 4.92 m/uL (3.80-5.40)
[2024-02-16 03:50] LABS: ALT 16 U/L (4-34); AST 27 U/L (14-36); African American GFR (CKD) >90 (>60 ml/min/1.73 sqM); Albumin 4.3 g/dL (3.5-5.0); Alkaline Phosphatase 92 U/L (38-126); Amylase 44 U/L (30-110); Anion Gap 12 mmol/L; Blood Urea Nitrogen 17 mg/dL (7-17); Calcium 9.4 mg/dL (8.4-10.2); Carbon Dioxide 19 mmol/L (22-30); Chloride 108 mmol/L (98-107); Glucose 129 mg/dL (74-99); Lipase 189 U/L (23-300); Non-African American GFR(CKD) >90 (>60 ml/min/1.73 sqM); Potassium 4.3 mmol/L (3.5-5.1); Sodium 139 mmol/L (137-145); Total Bilirubin 0.4 mg/dL (0.2-1.3); Total Protein 6.7 g/dL (6.3-8.2)
--- NOTE | 2024-02-16 04:03 | XR ---
EXAMINATION TYPE: XR chest 1V portable DATE OF EXAM: 02/16/2024 COMPARISON: Prior chest x-ray November 17, 2022 HISTORY: Epigastric pain TECHNIQUE: Single frontal view of the chest is obtained. FINDINGS: There is diminished inspiration with patchy bibasilar opacities and mild cardiomegaly cayla g with mild central vascular congestion. The osseous structures are intact. IMPRESSION: There is mild Cardiomegaly with mild vascular congestion. Correlate for fluid overload s sandoval. Findings may be exaggerated by poor inspiration. Bibasilar opacities favor atelectasis. Cannot exclude developing acute infiltrate.
--- NOTE | 2024-02-16 05:15 | CT ---
EXAMINATION TYPE: CT angio thor/abd pel aorta DATE OF EXAM: 02/16/2024 COMPARISON: None. HISTORY: Upper abdominal pain with nausea and vomiting. Epigastric pain. CT DLP: 1910.9 mGycm. Automated Exposure Control for Dose Reduction was Utilized. CONTRAST: CTA scan of the thorax, abdomen and pelvis is performed without and with IV Contrast, patient injecte d with 100 mL of Isovue 370. Three-D reconstructed images created on an independent workstation and r eviewed FINDINGS: VASCULAR: Noncontrast images show no suspicious hyperdense material to suggest intramural hematoma. A scending aorta measures up to 3.6 cm in diameter. Normal 3 vessel origin from the aortic arch without significant plaque or stenosis. Patent celiac artery and SMA without significant stenosis. Patent bi lateral single renal arteries and ORTIZ. Patent iliac branch vessels into femoral vessels. No linear hy podensity to suggest dissection. No AAA. LUNGS: Mild left basilar linear scarring is seen. Right lung is clear. MEDIASTINUM: There are no greater than 1 cm hilar or mediastinal lymph nodes. No pericardial effusi on is seen. Mild cardiomegaly LIVER/GB: Mild extrahepatic biliary dilatation up to 11 mm coronal image 79. PANCREAS: No significant abnormality is seen. SPLEEN: No significant abnormality is seen. ADRENALS: No significant abnormality is seen. KIDNEYS: No significant abnormality is seen. BOWEL: Some distal colonic diverticula. No convincing CT evidence for acute diverticulitis. No abnorm al small or large bowel dilatation. Small bowel feces sign distal ileal loops consistent with delayed passage of ingested material to colonic level. Appendix within normal limits from the cecum. GENITAL ORGANS: Suboptimal evaluation and likely within normal limits. LYMPH NODES: No greater than 1cm abdominal or pelvic lymph nodes are appreciated. OSSEOUS STRUCTURES: Metallic artifact from bilateral hip arthroplasty is seen causing streak artifact somewhat limiting evaluation of pelvic structures. OTHER: No significant additional abnormality is seen. IMPRESSION: 1. No aortic dissection. 2. No bowel obstruction. Distal colonic diverticula without CT evidence for acute diverticulitis. 3. Mild extrahepatic biliary dilatation. Consider ERCP/MRCP follow-up to further evaluate based on cl inical and lab correlation.
[2024-02-16] MEDS: MAG HYDROX/AL HYDROX/SIMETH 30 ML, HYOSCYAMINE ELIXIR 10 ML, LIDOCAINE VISCOUS 2% 10 ML PO STA (06:05)
[2024-02-16] MEDS: PANTOPRAZOLE 40 MG TABLET PO STA (06:57)
[2024-02-16 07:10] VITALS: BP 148/63; PULSE 58; RESP 21; TEMP 98.4
== END 2024-02-16 07:08 | disposition home or self-care (01) ==
LOC: EC 02:52
DX: K29.70 Gastritis, unspecified, without bleeding (principal); K57.30 Diverticulosis of large intestine without perforation or abscess without bleeding
CPT/HCPCS: 36415; 93005; 85379; 80053; 82150; 83605; 83690; 84484; 85025; 71045; 71275; 74174; 99285; 96374; 96375; J2270; Q9967

== ENCOUNTER 2024-02-24 14:02 | Inpatient (IN) | payer MEDICARE ==
--- NOTE | 2024-02-24 14:32 | ED ---
Abdominal Pain HPI - General Source: patient, RN notes reviewed Mode of arrival: ambulatory Limitations: no limitations - History of Present Illness Complaint: abdominal pain <Maggie Morse - Last Filed: 02/24/24 14:30> - General Source: RN notes reviewed, old records reviewed Mode of arrival: ambulatory Limitations: no limitations - History of Present Illness MD Complaint: abdominal pain -: days(s) Location: RUQ Radiation: RUQ Migration to: RUQ, epigastric Severity: moderate Severity scale (1-10): 3 Quality: stabbing Consistency: constant Improves With: nothing Worsens With: nothing Associated Symptoms: nausea Treatments Prior to Arrival: other (0) <Broderick Pardees - Last Filed: 03/02/24 23:05> - General Chief Complaint: Abdominal Pain Stated Complaint: abd pain Time Seen by Provider: 02/24/24 14:30 - History of Present Illness Initial Comments: Quick Note: This is a 68-year-old female who presents to the emergency department for abdominal pain. Patient was evaluated here earlier this month for epigastric pain, however due to recent hip surgery, that they wanted to rule out a pulmonary embolus. This was ruled out, however she was told that one of the ducts near her liver was irregular. She was started on antacids and told to follow-up with [facility]ON[facility] Paz. However, states that the pain just started to localize to the right upper quadrant and she was not sure if she could wait until her follow-up appointment next week. (Maggie Morse) This is a 68-year-old female to ER for evaluation of acute on chronic abdominal pain starting to follow-up with a GI specialist Dr. Kitchen later this month but now is having localized right upper quadrant pain which has been significant for her to the point where she cannot take a deep breath currently (Andressa Paredes) - Related Data Home Medications Medication Instructions Recorded Confirmed lisinopriL [Prinivil] 10 mg PO HS 04/25/14 02/24/24 Metoprolol Succinate [Toprol XL] 50 mg PO HS 07/21/23 02/24/24 Previous Rx's Medication Instructions Recorded HYDROcodone/APAP 5-325MG [Colp 1 tab PO Q6HR PRN 3 Days #12 tab 07/11/24 5-325] Ibuprofen [Motrin] 600 mg PO Q8HR PRN #30 tab 02/26/24 cefUROXime axetiL [Ceftin] 500 mg PO BID 10 Days #20 tab 02/26/24 metroNIDAZOLE [Flagyl] 500 mg PO TID 10 Days #30 tab 02/26/24 Allergies Allergy/AdvReac Type Severity Reaction Status Date / Time No Known Allergies Allergy Verified 02/24/24 18:18 Review of Systems ROS Other: All systems not noted in ROS Statement are negative. <Maggie Morse - Last Filed: 02/24/24 14:30> ROS Other: All systems not noted in ROS Statement are negative. <Broderick Paredes - Last Filed: 03/02/24 23:05> ROS Statement: Those systems with pertinent positive or pertinent negative responses have been documented in the HPI. Past Medical History Past Medical History: GERD/Reflux, Hypertension, Musculoskeletal Disorder, Osteoarthritis (OA) Additional Past Medical History / Comment(s): Palpitations, hemorrhoids, slight bulging disc, acid refux resolved. History of Any Multi-Drug Resistant Organisms: None Reported Past Surgical History: Joint Replacement Additional Past Surgical History / Comment(s): D&C, throat polyp removed, colonoscopy, benign growth removed from cheek, right hip replacement, left hip replacement 12/15. Past Anesthesia/Blood Transfusion Reactions: No Reported Reaction Past Psychological History: No Psychological Hx Reported Smoking Status: Never smoker Past Alcohol Use History: None Reported Past Drug Use History: None Reported - Past Family History Mother Family Medical History: No Reported History <Maggie Morse - Last Filed: 02/24/24 14:30> General Exam <Maggie Morse - Last Filed: 02/24/24 14:30> General appearance: alert, in no apparent distress Head exam: Present: atraumatic, normocephalic, normal inspection Eye exam: Present: normal appearance, PERRL, EOMI. Absent: scleral icterus, conjunctival injection, periorbital swelling ENT exam: Present: normal exam, mucous membranes moist Neck exam: Present: normal inspection. Absent: tenderness, meningismus, lymphadenopathy Respiratory exam: Present: normal lung sounds bilaterally. Absent: respiratory distress, wheezes, rales, rhonchi, stridor Cardiovascular Exam: Present: regular rate, normal rhythm, normal heart sounds. Absent: systolic murmur, diastolic murmur, rubs, gallop, clicks GI/Abdominal exam: Present: soft, normal bowel sounds. Absent: distended, tenderness, guarding, rebound, rigid Extremities exam: Present: normal inspection, full ROM, normal capillary refill. Absent: tenderness, pedal edema, joint swelling, calf tenderness Back exam: Present: normal inspection Neurological exam: Present: alert, oriented X3, CN II-XII intact Psychiatric exam: Present: normal affect, normal mood Skin exam: Present: warm, dry, intact, normal color. Absent: rash <Broderick Paredes - Last Filed: 03/02/24 23:05> - General Exam Comments Initial Comments: Visual Physical Exam Vital signs reviewed General: Well-appearing, nontoxic, no acute distress. Head: Normocephalic, atraumatic Eyes: PERRLA, EOMI ENT: Airway patent Chest: Nonlabored breathing Skin: No visual rash, normal skin tone Neuro: Alert and oriented 3 Musculoskeletal: No gross abnormalities (Maggie Morse) Course <Broderick Paredes - Last Filed: 03/02/24 23:05> Vital Signs 02/24/24 02/24/24 14:44 18:44 Temperature 98 F Pulse Rate 78 86 Respiratory 16 20 Rate Blood Pressure 148/83 140/60 O2 Sat by Pulse 97 98 Oximetry - Reevaluation(s) Reevaluation #1: 02/24/24 18:08 Medical records reviewed (Broderick Paredes) Reevaluation #2: 02/24/24 18:09 Patient symptoms unchanged (Broderick Paredes) Reevaluation #3: 02/24/24 18:09 Patient informed of results and questions answered (Broderick Paredes) Reevaluation #4: Was pt. sent in by a medical professional or institution (, PA, KENO CLERK, urgent care, hospital, or correction...) When possible be specific @ -no Did you speak to anyone other than the patient for history (EMS, parent, family, police, friend...)? What history was obtained from this source @ -no Did you review nursing and triage notes (agree or disagree)? Why? @ -agree Are old charts reviewed (outside hosp., previous admission, EMS record, old EKG, old radiological studies, urgent care reports/EKG's, correction records)? Report findings @ -yes Differential Diagnosis (chest pain, altered mental status, abdominal pain women, abdominal pain men, vaginal bleeding, weakness, fever, dyspnea, syncope, headache, dizziness, GI bleed, back pain, seizure, CVA, palpatations, mental health, musculoskeletal)? @ -prior EKG interpreted by me (3pts min.). @ -yes X-rays interpreted by me (1pt min.). @ -no CT interpreted by me (1pt min.). @ -no U/S interpreted by me (1pt. min.). @ -Yes positive cholecystitis What testing was considered but not performed or refused? (CT, X-rays, U/S, labs)? Why? @ -none What meds were considered but not given or refused? Why? @ -none Did you discuss the management of the patient with other professionals (professionals i.e. , PA, KENO CLERK, lab, RT, psych nurse, social insurance adviser, margin trimmer, teacher, inshore undersea warfare officer, patient case manager)? Give summary @ -no Was smoking cessation discussed for >3mins.? @ -no Was critical care preformed (if so, how long)? @ -no Were there social determinants of health that impacted care today? How? (Homelessness, low income, unemployed, alcoholism, drug addiction, morales sportation, low edu. Level, literacy, decrease access to med. care, half-way, rehab)? @ -none Was there de-escalation of care discussed even if they declined (Discuss DNR or withdrawal of care, Hospice)? DNR status @ -no What co-morbidities impacted this encounter? (DM, HTN, Smoking, COPD, CAD, Cancer, CVA, ARF, Chemo, Hep., AIDS, mental health diagnosis, sleep apnea, morbid obesity)? @ -none Was patient admitted / discharged? Hospital course, mention meds given and route, prescriptions, significant lab abnormalities, going to OR and other pertinent info. @ - 68 female to ER for gallbladder type pain. Patient will be admitted for surgery to see and treat Admitted Undiagnosed new problem with uncertain prognosis? @ -no Drug Therapy requiring intensive monitoring for toxicity (Heparin, Nitro, Insulin, Cardizem)? @ -no Were any procedures done? @ -no Diagnosis/symptom? @ -Gallbladder pain cholecystitis Acute, or Chronic, or Acute on Chronic? @ -Acute Uncomplicated (without systemic symptoms) or Complicated (systemic symptoms)? @ -Complicated Side effects of treatment? @ -no Exacerbation, Progression, or Severe Exacerbation? @ -exacerbation Poses a threat to life or bodily function? How? (Chest pain, [place], [place], pneumonia, PE, COPD, DKA, ARF, appy, cholecystitis, CVA, Diverticulitis, Homicidal, Suicidal, threat to staff... and all critical care pts) @ -yes extremes of age (Broderick Paredes) Reevaluation #5: D differential Abdominal Pain Women: Appendicitis, Cholecystitis, diverticulosis, ischemic bowel, pancreatitis, hepatitis, UTI, gastroenteritis, AAA, incarcerated hernia, bowel obstruction, constipation, inflammatory bowel, hepatitis, peptic ulcer disease, splenic infarction, perforated viscus, vulvitis, ovarian torsion, PID, kidney stone, placenta abruption, this is not meant to be an all-inclusive list (Broderick Paredes) - Consultations Consultation #1: Spoke with surgery who will admit this patient (Broderick Paredes) Medical Decision Making <Maggie Morse - Last Filed: 02/24/24 14:30> - Lab Data Result diagrams: 02/26/24 06:29 02/26/24 06:29 - Radiology Data Radiology results: report reviewed (Ultrasound gallbladder does show gallbladder wall thickening cholelithiasis and sludge), image reviewed <Broderick Paredes - Last Filed: 03/02/24 23:05> - Medical Decision Making I performed the QuickNote portion of this chart. Signed Maggie Morse PA-C. (Maggie Morse) 68 female to ER for gallbladder type pain. Patient will be admitted for surgery to see and treat (Broderick Paredes) - Lab Data Lab Results 02/24/24 02/24/24 02/24/24 Range/Units 14:49 14:49 14:49 WBC 8.1 (3.8-10.6) k/uL RBC 4.64 (3.80-5.40) m/uL Hgb 12.2 (11.4-16.0) gm/dL Hct 38.0 (34.0-46.0) % MCV 81.8 (80.0-100.0) fL MCH 26.4 (25.0-35.0) pg MCHC 32.2 (31.0-37.0) g/dL RDW 13.6 (11.5-15.5) % Plt Count 314 (150-450) k/uL MPV 8.2 Immature Gran % (Auto) % Absolute Nucleated RBC % Neutrophils % 72 % Lymphocytes % 15 % Monocytes % 7 % Eosinophils % 3 % Basophils % 1 % Immature Gran # (0.00-0.04) X 10*3/uL Neutrophils # 5.8 (1.3-7.7) k/uL Lymphocytes # 1.2 (1.0-4.8) k/uL Monocytes # 0.6 (0-1.0) k/uL Eosinophils # 0.2 (0-0.7) k/uL Basophils # 0.0 (0-0.2) k/uL NRBC/100 WBC Diff (0.00-0.01) X 10*3/uL Hypochromasia Sodium 138 (137-145) mmol/L Potassium 4.4 (3.5-5.1) mmol/L Chloride 104 (98-107) mmol/L Carbon Dioxide 25 (22-30) mmol/L Anion Gap 9 mmol/L BUN 7 (7-17) mg/dL Creatinine 0.48 L (0.52-1.04) mg/dL Est GFR (CKD-EPI) (>=60) Est GFR (CKD-EPI)AfAm >90 (>60 ml/min/1.73 sqM) Est GFR (CKD-EPI)NonAf >90 (>60 ml/min/1.73 sqM) BUN/Creatinine Ratio (12.00-20.00) Ratio Glucose 94 (74-99) mg/dL Plasma Lactic Acid Yobany (0.7-2.0) mmol/L Calcium 9.1 (8.4-10.2) mg/dL Total Bilirubin 0.5 (0.2-1.3) mg/dL AST 39 H (14-36) U/L ALT 34 (4-34) U/L Alkaline Phosphatase 103 (38-126) U/L Troponin I (0.000-0.034) ng/mL Total Protein 6.3 (6.3-8.2) g/dL Albumin 3.7 (3.5-5.0) g/dL Globulin (1.6-3.3) g/dL Albumin/Globulin Ratio (1.60-3.17) Ratio Amylase 32 (30-110) U/L Lipase 146 (23-300) U/L Urine Color Yellow Urine Appearance Clear (Clear) Urine pH 5.5 (5.0-8.0) Ur Specific [place] 1.013 (1.001-1.035) Urine Protein Trace H (Negative) Urine Glucose (UA) Negative (Negative) Urine Ketones Negative (Negative) Urine Blood Moderate H (Negative) Urine Nitrite Negative (Negative) Urine Bilirubin Negative (Negative) Urine Urobilinogen <2.0 (<2.0) mg/dL Ur Leukocyte Esterase Small H (Negative) Urine RBC 14 H (0-5) /hpf Urine WBC 4 (0-5) /hpf Ur Squamous Epith Cells 1 (0-4) /hpf Urine Mucus Few H (None) /hpf 02/24/24 02/24/24 02/25/24 Range/Units 14:49 14:49 05:27 WBC 13.37 H (3.8-10.6) k/uL RBC 3.99 L (3.80-5.40) m/uL Hgb 10.7 L (11.4-16.0) gm/dL Hct 32.9 L (34.0-46.0) % MCV 82.5 (80.0-100.0) fL MCH 26.8 L (25.0-35.0) pg MCHC 32.5 (31.0-37.0) g/dL RDW 13.4 (11.5-15.5) % Plt Count 312 (150-450) k/uL MPV 10.2 Immature Gran % (Auto) 0.80 % Absolute Nucleated RBC 0 % Neutrophils % 89.7 % Lymphocytes % 5.3 % Monocytes % 4.0 % Eosinophils % 0 % Basophils % 0.2 % Immature Gran # 0.11 H (0.00-0.04) X 10*3/uL Neutrophils # 11.99 H (1.3-7.7) k/uL Lymphocytes # 0.71 L (1.0-4.8) k/uL Monocytes # 0.53 (0-1.0) k/uL Eosinophils # 0 L (0-0.7) k/uL Basophils # 0.03 (0-0.2) k/uL NRBC/100 WBC Diff 0 (0.00-0.01) X 10*3/uL Hypochromasia Sodium (137-145) mmol/L Potassium (3.5-5.1) mmol/L Chloride (98-107) mmol/L Carbon Dioxide (22-30) mmol/L Anion Gap mmol/L BUN (7-17) mg/dL Creatinine (0.52-1.04) mg/dL Est GFR (CKD-EPI) (>=60) Est GFR (CKD-EPI)AfAm (>60 ml/min/1.73 sqM) Est GFR (CKD-EPI)NonAf (>60 ml/min/1.73 sqM) BUN/Creatinine Ratio (12.00-20.00) Ratio Glucose (74-99) mg/dL Plasma Lactic Acid Yobany 0.8 (0.7-2.0) mmol/L Calcium (8.4-10.2) mg/dL Total Bilirubin (0.2-1.3) mg/dL AST (14-36) U/L ALT (4-34) U/L Alkaline Phosphatase (38-126) U/L Troponin I <0.012 (0.000-0.034) ng/mL Total Protein (6.3-8.2) g/dL Albumin (3.5-5.0) g/dL Globulin (1.6-3.3) g/dL Albumin/Globulin Ratio (1.60-3.17) Ratio Amylase (30-110) U/L Lipase (23-300) U/L Urine Color Urine Appearance (Clear) Urine pH (5.0-8.0) Ur Specific [place] (1.001-1.035) Urine Protein (Negative) Urine Glucose (UA) (Negative) Urine Ketones (Negative) Urine Blood (Negative) Urine Nitrite (Negative) Urine Bilirubin (Negative) Urine Urobilinogen (<2.0) mg/dL Ur Leukocyte Esterase (Negative) Urine RBC (0-5) /hpf Urine WBC (0-5) /hpf Ur Squamous Epith Cells (0-4) /hpf Urine Mucus (None) /hpf 02/25/24 02/26/24 02/26/24 Range/Units 05:27 06:29 06:29 WBC 6.6 (3.8-10.6) k/uL RBC 4.22 (3.80-5.40) m/uL Hgb 11.2 L (11.4-16.0) gm/dL Hct 37.8 (34.0-46.0) % MCV 89.6 D (80.0-100.0) fL MCH 26.6 (25.0-35.0) pg MCHC 29.7 L (31.0-37.0) g/dL RDW 13.7 (11.5-15.5) % Plt Count 290 (150-450) k/uL MPV 8.8 Immature Gran % (Auto) % Absolute Nucleated RBC % Neutrophils % 67 % Lymphocytes % 19 % Monocytes % 7 % Eosinophils % 2 % Basophils % 2 % Immature Gran # (0.00-0.04) X 10*3/uL Neutrophils # 4.4 (1.3-7.7) k/uL Lymphocytes # 1.3 (1.0-4.8) k/uL Monocytes # 0.5 (0-1.0) k/uL Eosinophils # 0.2 (0-0.7) k/uL Basophils # 0.1 (0-0.2) k/uL NRBC/100 WBC Diff (0.00-0.01) X 10*3/uL Hypochromasia Marked Sodium 138 135 L (137-145) mmol/L Potassium 4.4 4.0 (3.5-5.1) mmol/L Chloride 101 109 H (98-107) mmol/L Carbon Dioxide 24.2 18 L (22-30) mmol/L Anion Gap 12.80 H 8 mmol/L BUN 8.4 L 7 (7-17) mg/dL Creatinine 0.6 0.61 (0.52-1.04) mg/dL Est GFR (CKD-EPI) 96 (>=60) Est GFR (CKD-EPI)AfAm >90 (>60 ml/min/1.73 sqM) Est GFR (CKD-EPI)NonAf >90 (>60 ml/min/1.73 sqM) BUN/Creatinine Ratio 14.00 (12.00-20.00) Ratio Glucose 129 H 84 (74-99) mg/dL Plasma Lactic Acid Yobany (0.7-2.0) mmol/L Calcium 8.6 L 8.8 (8.4-10.2) mg/dL Total Bilirubin 0.2 L 0.6 (0.2-1.3) mg/dL AST 60 H 42 H (14-36) U/L ALT 49 H 41 H (4-34) U/L Alkaline Phosphatase 94 78 (38-126) U/L Troponin I (0.000-0.034) ng/mL Total Protein 5.5 L 5.4 L (6.3-8.2) g/dL Albumin 3.4 L 3.1 L (3.5-5.0) g/dL Globulin 2.1 2.3 (1.6-3.3) g/dL Albumin/Globulin Ratio 1.62 1.3 (1.60-3.17) Ratio Amylase (30-110) U/L Lipase (23-300) U/L Urine Color Urine Appearance (Clear) Urine pH (5.0-8.0) Ur Specific [place] (1.001-1.035) Urine Protein (Negative) Urine Glucose (UA) (Negative) Urine Ketones (Negative) Urine Blood (Negative) Urine Nitrite (Negative) Urine Bilirubin (Negative) Urine Urobilinogen (<2.0) mg/dL Ur Leukocyte Esterase (Negative) Urine RBC (0-5) /hpf Urine WBC (0-5) /hpf Ur Squamous Epith Cells (0-4) /hpf Urine Mucus (None) /hpf Disposition <Maggie Morse - Last Filed: 02/24/24 14:30> Is patient prescribed a controlled substance at d/c from ED?: No Time of Disposition: 18:00 <Broderick Paredes - Last Filed: 03/02/24 23:05> Clinical Impression: Abdominal pain, Cholelithiasis, Cholecystitis Disposition: ADMITTED IP TO THIS HOSP Condition: Stable
[2024-02-24 15:57] LABS: ALT 34 U/L (4-34); AST 39 U/L (14-36); African American GFR (CKD) >90 (>60 ml/min/1.73 sqM); Albumin 3.7 g/dL (3.5-5.0); Alkaline Phosphatase 103 U/L (38-126); Amylase 32 U/L (30-110); Blood Urea Nitrogen 7 mg/dL (7-17); Calcium 9.1 mg/dL (8.4-10.2); Carbon Dioxide 25 mmol/L (22-30); Glucose 94 mg/dL (74-99); Lipase 146 U/L (23-300); Non-African American GFR(CKD) >90 (>60 ml/min/1.73 sqM); Total Bilirubin 0.5 mg/dL (0.2-1.3); Total Protein 6.3 g/dL (6.3-8.2)
[2024-02-24 16:08] LABS: Appearance,Urine Clear (Clear); Bilirubin,Urine Negative (Negative); Blood,Urine Moderate (Negative); Color,Urine Yellow; Glucose,Urine (UA) Negative (Negative); Ketones,Urine Negative (Negative); Leukocyte Esterase,Urine Small (Negative); Mucus,Urine Few /hpf; Nitrite,Urine Negative (Negative); PH, Urine 5.5 (5.0-8.0); Protein,Urine Trace (Negative); RBC,Urine 14 /hpf (0-5); Specific Gravity,Urine 1.013 (1.001-1.035); Squamous Epithelial Cell,Urine 1 /hpf (0-4); Urobilinogen,Urine <2.0 mg/dL (<2.0); WBC,Urine 4 /hpf (0-5)
[2024-02-24 16:25] LABS: Anion Gap 9 mmol/L; Chloride 104 mmol/L (98-107); Potassium 4.4 mmol/L (3.5-5.1); Sodium 138 mmol/L (137-145)
[2024-02-24 16:53] LABS: Basophils % (A) 1 %; Eosinophils # (A) 0.2 k/uL (0-0.7); Eosinophils % (A) 3 %; HGB 12.2 gm/dL (11.4-16.0); Lymphocytes # (A) 1.2 k/uL (1.0-4.8); Lymphocytes % (A) 15 %; MCH 26.4 pg (25.0-35.0); MCHC 32.2 g/dL (31.0-37.0); MCV 81.8 fL (80.0-100.0); Mean Platelet Volume 8.2; Monocytes # (A) 0.6 k/uL (0-1.0); Monocytes % (A) 7 %; Neutrophils # (A) 5.8 k/uL (1.3-7.7); Neutrophils % (A) 72 %; Platelet Count 314 k/uL (150-450); RBC 4.64 m/uL (3.80-5.40); RDW 13.6 % (11.5-15.5); WBC 8.1 k/uL (3.8-10.6)
--- NOTE | 2024-02-24 16:54 | US ---
EXAMINATION TYPE: US gallbladder DATE OF EXAM: 02/24/2024 COMPARISON: 02/16/2024. CLINICAL INDICATION: Female, 68 years old with history of RUQ pain; Abn CT. EC patient. TECHNIQUE: Multiple sonographic images of the right upper quadrant are obtained. FINDINGS: EXAM MEASUREMENTS: Liver Length: 15.1 cm Gallbladder Wall: 0.7 cm CBD: 0.8 cm CHD: 0.5 cm Right Kidney: 10.2 x 4.5 x 4.7 cm Pancreas: Tail obscured by overlying bowel gas, echogenic in appearance Liver: wnl Gallbladder: Enlarged in size. Focal wall thickening. Sludge and echogenic foci seen. Evidence for sonographic Lane's sign: neg CBD: wnl Right Kidney: No hydronephrosis or masses seen. Fluid seen adjacent to lower pole. IMPRESSION: 1. Focal thickening of the gallbladder wall suggested on sonography. Consider short-term follow-up f or confirmation. Findings could represent adenomyomatosis. Consider MRI MRCP for further evaluation. 2. Cholelithiasis with biliary sludge.
[2024-02-24] MEDS ORDERED: NALOXONE 0.4 MG/ML 1 ML VIAL IV PRN ×2 (18:04→20:24)
[2024-02-24] MEDS ORDERED: MORPHINE SULFATE 4 MG/ML SYRINGE IV PRN (18:04)
[2024-02-24] MEDS: ONDANSETRON 4 MG/2 ML VIAL IVP PRN (18:48)
[2024-02-24] MEDS: DEXAMETHASONE SOD PHOSPHATE 4 MG/ML 1 ML VIAL IVP STA (18:49)
[2024-02-24] MEDS ORDERED: NEOSTIGMINE 1 MG/ML 10 ML VIAL ONE (19:16)
[2024-02-24] MEDS ORDERED: KETAMINE HCL IN 0.9 % NACL 50 MG/5 ML SYRINGE ONE (19:16)
[2024-02-24] MEDS ORDERED: ROCURONIUM 10 MG/ML (5 ML VIAL) IV ONE (19:16)
[2024-02-24] MEDS ORDERED: LIDOCAINE 1% INJ 10MG/ML (20 ML MDV) ONE (19:16)
[2024-02-24] MEDS ORDERED: SUCCINYLCHOLINE CHLORIDE 200 MG/10 ML VIAL IV ONE (19:16)
[2024-02-24] MEDS: SODIUM CHLORIDE 0.9% 100 ML with ceFAZolin 2,000 MG IV ONE (19:16)
[2024-02-24] MEDS ORDERED: HYDROmorphone (PF) 1 MG/ML ONE (19:16)
[2024-02-24] MEDS ORDERED: ceFAZolin 1 GM/50 ML BAG (PMX) ONE (19:16)
[2024-02-24] MEDS ORDERED: GLYCOPYRROLATE 0.2 MG/ML 2 ML VIAL ONE (19:16)
[2024-02-24] MEDS: LACTATED RINGERS 1,000 ML IV ONE (19:16)
[2024-02-24] MEDS ORDERED: fentaNYL (PF) 50 MCG/ML 2 ML AMP ONE (19:16)
[2024-02-24] MEDS ORDERED: MIDAZOLAM 2 MG/2 ML VIAL ONE (19:16)
[2024-02-24] MEDS ORDERED: PROPOFOL 10 MG/ML 20 ML VIAL IV ONE (19:16)
--- NOTE | 2024-02-24 19:18 | P.GSHP ---
History of Present Illness H&P Date: 02/24/24 Chief Complaint: Severe right upper quadrant pain This is a 68-year-old female presents emergency room with severe complaints upper quadrant pain. Patient was worked up in emergency room. She found a thickened gallbladder wall with sludge. Patient states she had a 48-hour history of severe right upper quadrant pain. Past Medical History Past Medical History: GERD/Reflux, Hypertension, Musculoskeletal Disorder, Osteoarthritis (OA) Additional Past Medical History / Comment(s): Palpitations, hemorrhoids, slight bulging disc, acid refux resolved. History of Any Multi-Drug Resistant Organisms: None Reported Past Surgical History: Joint Replacement Additional Past Surgical History / Comment(s): D&C, throat polyp removed, colonoscopy, benign growth removed from cheek, right hip replacement, left hip replacement 12/15. Past Anesthesia/Blood Transfusion Reactions: No Reported Reaction Past Psychological History: No Psychological Hx Reported Smoking Status: Never smoker Past Alcohol Use History: None Reported Past Drug Use History: None Reported - Past Family History Mother Family Medical History: No Reported History Medications and Allergies Home Medications Medication Instructions Recorded Confirmed Type lisinopriL [Prinivil] 10 mg PO HS 04/25/14 02/24/24 History Metoprolol Succinate [Toprol XL] 50 mg PO HS 07/21/23 02/24/24 History Allergies Allergy/AdvReac Type Severity Reaction Status Date / Time No Known Allergies Allergy Verified 02/24/24 18:18 Surgical - Exam Vital Signs Temp Pulse Resp BP Pulse Ox 98 F 78 16 148/83 97 02/24/24 14:44 02/24/24 14:44 02/24/24 14:44 02/24/24 14:44 02/24/24 14:44 - General well developed, well nourished, moderate distress - Eyes PERRL - ENT normal pinna - Neck no masses - Respiratory normal expansion - Cardiovascular Rhythm: regular - Abdomen Right upper quadrant pain, positive Lane sign Abdomen: soft Results - Labs 02/24/24 14:49 02/24/24 14:49 Abnormal Lab Results - Last 24 Hours (Table) 02/24/24 02/24/24 Range/Units 14:49 14:49 Creatinine 0.48 L (0.52-1.04) mg/dL AST 39 H (14-36) U/L Urine Protein Trace H (Negative) Urine Blood Moderate H (Negative) Ur Leukocyte Esterase Small H (Negative) Urine RBC 14 H (0-5) /hpf Urine Mucus Few H (None) /hpf Diabetes panel 02/24/24 Range/Units 14:49 Sodium 138 (137-145) mmol/L Potassium 4.4 (3.5-5.1) mmol/L Chloride 104 (98-107) mmol/L Carbon Dioxide 25 (22-30) mmol/L BUN 7 (7-17) mg/dL Creatinine 0.48 L (0.52-1.04) mg/dL Glucose 94 (74-99) mg/dL Calcium 9.1 (8.4-10.2) mg/dL AST 39 H (14-36) U/L ALT 34 (4-34) U/L Alkaline Phosphatase 103 (38-126) U/L Total Protein 6.3 (6.3-8.2) g/dL Albumin 3.7 (3.5-5.0) g/dL Calcium panel 02/24/24 Range/Units 14:49 Calcium 9.1 (8.4-10.2) mg/dL Albumin 3.7 (3.5-5.0) g/dL Pituitary panel 02/24/24 Range/Units 14:49 Sodium 138 (137-145) mmol/L Potassium 4.4 (3.5-5.1) mmol/L Chloride 104 (98-107) mmol/L Carbon Dioxide 25 (22-30) mmol/L BUN 7 (7-17) mg/dL Creatinine 0.48 L (0.52-1.04) mg/dL Glucose 94 (74-99) mg/dL Calcium 9.1 (8.4-10.2) mg/dL Adrenal panel 02/24/24 Range/Units 14:49 Sodium 138 (137-145) mmol/L Potassium 4.4 (3.5-5.1) mmol/L Chloride 104 (98-107) mmol/L Carbon Dioxide 25 (22-30) mmol/L BUN 7 (7-17) mg/dL Creatinine 0.48 L (0.52-1.04) mg/dL Glucose 94 (74-99) mg/dL Calcium 9.1 (8.4-10.2) mg/dL Total Bilirubin 0.5 (0.2-1.3) mg/dL AST 39 H (14-36) U/L ALT 34 (4-34) U/L Alkaline Phosphatase 103 (38-126) U/L Total Protein 6.3 (6.3-8.2) g/dL Albumin 3.7 (3.5-5.0) g/dL - Imaging CT scan - abdomen: report reviewed (Skin gallbladder wall with sludge) Assessment and Plan Plan: Acute cholecystitis. Patient will have laparoscopic cholecystectomy performed.
[2024-02-24] MEDS: BUPIVACAINE (PF) 0.25% 30 ML VIAL SQ ONE (19:39)
[2024-02-24] MEDS ORDERED: HYDROcodone/APAP 5-325MG 1 EACH TAB PO PRN (20:24)
[2024-02-24] MEDS ORDERED: ONDANSETRON 4 MG/2 ML VIAL IVP PRN (20:24)
[2024-02-24] MEDS ORDERED: ACETAMINOPHEN TAB 325 MG TAB PO PRN (20:24)
--- NOTE | 2024-02-24 20:24 | P.OP ---
Date of Procedure: 02/24/24 Preoperative Diagnosis: Acute cholecystitis Postoperative Diagnosis: Acute gangrenous cholecystitis Procedure(s) Performed: Laparoscopic subtotal cholecystectomy Anesthesia: CINTIA Surgeon: Donavan Chowdhury Estimated Blood Loss (ml): 25 Pathology: other (Gallbladder) Condition: stable Disposition: PACU Description of Procedure: The patient was placed on the operating table. The patient received a general endotracheal tube anesthesia. The patients abdomen was prepped and draped in the usual sterile fashion. Through an infraumbilical stab incision, the fascia of the anterior abdominal wall was grasped with a pair of Kochers and then the Veress needle was placed in the peritoneal cavity. Position of the Veress needle was confirmed with positive drop test. The abdomen was then insufflated. After adequate insufflation, the 10 mm trocar was placed in the peritoneal cavity. Following this the laparoscope was placed in the peritoneal cavity. The patient was placed in the head-up, right side up position and then a 5 mm trocar was placed in the right lateral and right subcostal position under direct visualization. A 8 mm trocar was placed in the epigastric position. The colon and omentum were adherent to the gallbladder. This was dissected with gentle traction. The gallbladder appeared to be necrotic. The gallbladder was decompressed. There was purulent fluid within the gallbladder. The gallbladder was grasped in the fundus and infundibulum. Traction on the gallbladder was placed in the lateral and the cephalad positions. The triangle of Calot w could not be visualized secondary to dense inflammatory changes. At this point decided to form a subtotal cl cystectomy my. The gallbladder was traced to the origin of the cystic duct. Using a [place] retractor the gallbladder was dissected off the liver bed. The gallbladder was then di ligated with 2-0 Ethibond suture. 2 ties were used to ligate the neck of the gallbladder. And then the gallbladder was divided with robotic scissors. The gallbladder was then dissected off the liver bed using harmonic scissors. There is a large amount of purulent fluid within the gallbladder and the gallbladder had patchy necrosis of the wall. The gallbladder was then placed in a 10 mm Endo Catch and brought out through the epigastric port site. The abdomen is irrigated. Several bleeding spots in the liver were coagulated with electrocautery. A FARZANA drain was placed in the gallbladder bed and brought out through the lateral 5 mm trocar site. There was irrigated then. No bleeding was seen. The trocars were withdrawn. The fascia at the end of the 8 mm trocar site was closed with 0 Vicryl. Skin was closed in #3 Monocryl suture. Patient tolerated seizure well. She was sent to recovery in stable condition.
[2024-02-24] MEDS: HYDROmorphone 0.5 MG/0.5 ML SYRINGE IVP PRN (21:05)
[2024-02-24] MEDS: SODIUM CHLORIDE 0.9% 1,000 ML IV SCH (22:22)
[2024-02-24] MEDS: AMPICILLIN-SULBACTAM 3 GM in SODIUM CHLORIDE 0.9% 100 ML IVPB STA (22:22)
[2024-02-24] MEDS: PANTOPRAZOLE 40 MG/10 ML VIAL IV SCH (22:22)
[2024-02-24] MEDS: LACTATED RINGERS 1,000 ML IV SCH (22:30)
[2024-02-24] MEDS: PIPERACILLIN-TAZOBACTAM 3.375 GM in SODIUM CHLORIDE 0.9% 100 ML IVPB SCH (23:41)
[2024-02-24] MEDS: KETOROLAC 15 MG/ML 1 ML VIAL IVP SCH (23:41)
[2024-02-25] MEDS: HYDROmorphone 1 MG/ML 1 ML SYRINGE IVP PRN (02:40)
--- NOTE | 2024-02-25 08:18 | P.CONS ---
History of Present Illness - Reason for Consult Consult date: 02/25/24 - Chief Complaint abdominal pain - History of Present Illness This is a history and physical/consultation note on a 68-year-old white female who called me over the holiday weekend stating significant epigastric and abdominal pain. She was still tolerating diet but I told the patient if the pain became worse or she was made feel comfortable eating tolerating diet to come to the hospital. The patient states she could not sleep due to the discomfort and came in and the workup showed cholecystitis. She is now postop day #1 after removal secondary to gangrenous cholecystitis. The patient is lucid and stabilizing. She did tolerate p.o. intake this morning. Recent orthopedic repair Review of Systems Constitutional: Denies chills, Denies fever Ears, nose, mouth and throat: Denies headache, Denies sore throat Cardiovascular: Denies chest pain, Denies shortness of breath Respiratory: Denies cough Gastrointestinal: Reports as per HPI, Reports abdominal pain Genitourinary: Denies dysuria, Denies hematuria Past Medical History Past Medical History: GERD/Reflux, Hypertension, Musculoskeletal Disorder, Osteoarthritis (OA) Additional Past Medical History / Comment(s): Palpitations, hemorrhoids, slight bulging disc, acid refux resolved. History of Any Multi-Drug Resistant Organisms: None Reported Past Surgical History: Joint Replacement Additional Past Surgical History / Comment(s): D&C, throat polyp removed, colonoscopy, benign growth removed from cheek, right hip replacement, left hip replacement 12/15. Past Anesthesia/Blood Transfusion Reactions: No Reported Reaction Past Psychological History: No Psychological Hx Reported Smoking Status: Never smoker Past Alcohol Use History: None Reported Past Drug Use History: None Reported - Past Family History Mother Family Medical History: No Reported History Medications and Allergies Home Medications Medication Instructions Recorded Confirmed Type lisinopriL [Prinivil] 10 mg PO HS 04/25/14 02/24/24 History Metoprolol Succinate [Toprol XL] 50 mg PO HS 07/21/23 02/24/24 History Allergies Allergy/AdvReac Type Severity Reaction Status Date / Time No Known Allergies Allergy Verified 02/24/24 18:18 Physical Exam Vitals: Vital Signs Temp Pulse Pulse Pulse Resp BP BP 02/25/24 02:17 98.1 F 68 18 02/24/24 23:57 77 02/24/24 23:27 77 02/24/24 22:57 80 02/24/24 22:27 74 02/24/24 22:12 71 02/24/24 21:57 98.1 F 74 16 02/24/24 21:40 77 17 146/65 02/24/24 21:25 74 15 150/65 02/24/24 21:10 73 17 149/59 02/24/24 20:55 76 18 164/72 02/24/24 20:40 97 F L 77 17 180/80 02/24/24 18:44 86 20 140/60 02/24/24 14:44 98 F 78 16 148/83 BP Pulse Ox 02/25/24 02:17 120/69 96 02/24/24 23:57 125/80 92 L 02/24/24 23:27 130/81 93 L 02/24/24 22:57 115/72 93 L 02/24/24 22:27 117/74 94 L 02/24/24 22:12 121/74 71 L 02/24/24 21:57 136/78 93 L 02/24/24 21:40 93 L 02/24/24 21:25 93 L 02/24/24 21:10 93 L 02/24/24 20:55 99 02/24/24 20:40 100 02/24/24 18:44 98 02/24/24 14:44 97 Intake and Output 02/24/24 02/25/24 02/25/24 22:59 06:59 14:59 Intake Total 1100 Output Total 50 40 Balance 1050 -40 Intake: IV 1100 Output: Drainage 40 Right Abdomen 40 Estimated Blood Loss 50 Other: Voiding Method Toilet # Voids 3 Weight 80.739 kg - Constitutional General appearance: no acute distress - EENT Eyes: EOMI - Neck Neck: no lymphadenopathy - Respiratory Respiratory: bilateral: diminished - Cardiovascular Rhythm: regular Heart sounds: abnormal: S1, S2 Abnormal Heart Sounds: no S3 Gallop - Gastrointestinal General gastrointestinal: soft, no tenderness Localized gastrointestinal: tender: RUQ - Integumentary Integumentary: no cyanotic - Psychiatric Psychiatric: A&O x's 3 Results CBC & Chem 7: 02/24/24 14:49 02/24/24 14:49 Labs: Abnormal Lab Results - Last 24 Hours (Table) 02/24/24 02/24/24 Range/Units 14:49 14:49 Creatinine 0.48 L (0.52-1.04) mg/dL AST 39 H (14-36) U/L Urine Protein Trace H (Negative) Urine Blood Moderate H (Negative) Ur Leukocyte Esterase Small H (Negative) Urine RBC 14 H (0-5) /hpf Urine Mucus Few H (None) /hpf Assessment and Plan (1) Cholecystitis Current Visit: Yes Status: Acute Code(s): K81.9 - CHOLECYSTITIS, UNSPECIFIED SNOMED Code(s): 21061053 (2) Gastroesophageal reflux disease Current Visit: No Status: Acute Code(s): K21.9 - GASTRO-ESOPHAGEAL REFLUX DISEASE WITHOUT ESOPHAGITIS SNOMED Code(s): 941858056 (3) History of total right hip arthroplasty Current Visit: No Status: Acute Code(s): Z96.641 - PRESENCE OF RIGHT ARTIFICIAL HIP JOINT SNOMED Code(s): 701375680771 (4) Hypertension Current Visit: No Status: Acute Code(s): I10 - ESSENTIAL (PRIMARY) HYPERTENSION SNOMED Code(s): 19397509 Plan: Pain control. Reconcile medications. Check CBC and CMP in the a.m. Standard postop pulmonary toilet/protocols. Appreciate medical consultation. The patient is otherwise full code. See orders otherwise. Time with Patient: Greater than 30
[2024-02-25] MEDS: ENOXAPARIN 40 MG/0.4 ML SYRINGE SQ SCH (08:41)
[2024-02-25 08:47] LABS: Basophils # (A) 0.03 X 10*3/uL (0.00-0.10); Basophils % (A) 0.2 %; Eosinophils # (A) 0 X 10*3/uL (0.04-0.35); Eosinophils % (A) 0 %; HCT 32.9 % (37.2-46.3); HGB 10.7 g/dL (12.0-15.0); Lymphocytes # (A) 0.71 X 10*3/uL (0.90-5.00); Lymphocytes % (A) 5.3 %; MCH 26.8 pg (27.0-32.0); MCHC 32.5 g/dL (32.0-37.0); MCV 82.5 FL (80.0-97.0); Mean Platelet Volume 10.2 FL (9.5-12.2); Monocytes # (A) 0.53 X 10*3/uL (0.20-1.00); NRBC Per 100 WBC 0 X 10*3/uL (0.00-0.01); Neutrophils # (A) 11.99 X 10*3/uL (1.80-7.70); Neutrophils % (A) 89.7 %; Platelet Count 312 X 10*3/uL (140-440); RBC 3.99 X 10*6/uL (4.10-5.20); RDW 13.4 % (11.5-14.5); WBC 13.37 X 10*3/uL (4.50-10.00)
[2024-02-25 09:05] LABS: ALT 49 U/L (8-44); AST 60 U/L (13-35); Albumin 3.4 g/dL (3.8-4.9); Albumin/Globulin Ratio 1.62 Ratio (1.60-3.17); Alkaline Phosphatase 94 U/L (41-126); Blood Urea Nitrogen 8.4 mg/dL (9.0-27.0); Calcium 8.6 mg/dL (8.7-10.3); Carbon Dioxide 24.2 mmol/L (21.6-31.8); Chloride 101 mmol/L (96-109); Globulin 2.1 g/dL (1.6-3.3); Glucose 129 mg/dL (70-110); Potassium 4.4 mmol/L (3.5-5.5); Sodium 138 mmol/L (135-145); Total Bilirubin 0.2 mg/dL (0.3-1.2); Total Protein 5.5 g/dL (6.2-8.2)
--- NOTE | 2024-02-25 12:51 | P.PN ---
Subjective Progress Note Date: 02/25/24 CHIEF COMPLAINT: Gangrenous cholecystitis HISTORY OF PRESENT ILLNESS: Patient postop day 1 status post laparoscopic subtotal cholecystectomy. She reports her pain is controlled. She has not really been up to ambulate. She denies any nausea or vomiting. Denies any flatus. FARZANA drain 40 mL serosanguineous output. Afebrile. WBC is up at 13.37 Hgb 10.7 platelets 312 creatinine 0.6 total bilirubin 0.2 AST 60 ALT 49 alk phos 94 PHYSICAL EXAM: VITAL SIGNS: Reviewed. GENERAL: Well-developed in no acute distress. ABDOMEN: Soft. Nondistended. Mild tenderness at incision sites. NEUROLOGIC: Alert and oriented. Cranial nerves II through XII grossly intact. ASSESSMENT: 1. Gangrenous cholecystitis PLAN: -Continue clear liquid diet -Encourage patient to ambulate -Incentive spirometer ordered -Continue antibiotics. ID service on Consult -Continue fluids -Repeat cbc and LFTs in a.m. -DVT prophylaxis and GI prophylaxis Physician Rn Clinical Quality note has been reviewed by physician. Signing provider agrees with the documented findings, assessment, and plan of care. I have personally seen and examined the patient, reviewed the ALUMNI SECRETARY /PAs history, exam and MDM and agree with the assessment and plan as written. Based on total visit time, I have performed more than 50% of the visit. As above: Patient ambulating in the hallways. Says her pain is improved. Initially she was having some difficulty taking a deep breath but that has improved. No nausea or vomiting. Labs noted. Recheck labs tomorrow. Advance diet as tolerated. Monitor FARZANA drain output. Objective - Vital Signs Vital signs: Vital Signs Temp 98.0 F 02/25/24 08:00 Pulse 71 02/25/24 08:00 Resp 15 02/25/24 08:00 BP 125/72 02/25/24 08:00 Pulse Ox 96 02/25/24 09:03 FiO2 Intake & Output 02/24/24 02/25/24 02/25/24 18:59 06:59 18:59 Intake Total 1100 Output Total 90 Balance 1010 Weight 80.739 kg 80.739 kg Intake: IV 1100 Output: Drainage 40 Right Abdomen 40 Estimated Blood Loss 50 Other: Voiding Method Toilet # Voids 3 - Labs CBC & Chem 7: 02/25/24 05:27 02/25/24 05:27 Labs: Abnormal Lab Results - Last 24 Hours (Table) 02/24/24 02/24/24 02/25/24 Range/Units 14:49 14:49 05:27 WBC 13.37 H (4.50-10.00) X 10*3/uL RBC 3.99 L (4.10-5.20) X 10*6/uL Hgb 10.7 L (12.0-15.0) g/dL Hct 32.9 L (37.2-46.3) % MCH 26.8 L (27.0-32.0) pg Immature Gran # 0.11 H (0.00-0.04) X 10*3/uL Neutrophils # 11.99 H (1.80-7.70) X 10*3/uL Lymphocytes # 0.71 L (0.90-5.00) X 10*3/uL Eosinophils # 0 L (0.04-0.35) X 10*3/uL Anion Gap (4.00-12.00) mmol/L BUN (9.0-27.0) mg/dL Creatinine 0.48 L (0.52-1.04) mg/dL Glucose (70-110) mg/dL Calcium (8.7-10.3) mg/dL Total Bilirubin (0.3-1.2) mg/dL AST 39 H (14-36) U/L ALT (8-44) U/L Total Protein (6.2-8.2) g/dL Albumin (3.8-4.9) g/dL Urine Protein Trace H (Negative) Urine Blood Moderate H (Negative) Ur Leukocyte Esterase Small H (Negative) Urine RBC 14 H (0-5) /hpf Urine Mucus Few H (None) /hpf 02/25/24 Range/Units 05:27 WBC (4.50-10.00) X 10*3/uL RBC (4.10-5.20) X 10*6/uL Hgb (12.0-15.0) g/dL Hct (37.2-46.3) % MCH (27.0-32.0) pg Immature Gran # (0.00-0.04) X 10*3/uL Neutrophils # (1.80-7.70) X 10*3/uL Lymphocytes # (0.90-5.00) X 10*3/uL Eosinophils # (0.04-0.35) X 10*3/uL Anion Gap 12.80 H (4.00-12.00) mmol/L BUN 8.4 L (9.0-27.0) mg/dL Creatinine (0.52-1.04) mg/dL Glucose 129 H (70-110) mg/dL Calcium 8.6 L (8.7-10.3) mg/dL Total Bilirubin 0.2 L (0.3-1.2) mg/dL AST 60 H (14-36) U/L ALT 49 H (8-44) U/L Total Protein 5.5 L (6.2-8.2) g/dL Albumin 3.4 L (3.8-4.9) g/dL Urine Protein (Negative) Urine Blood (Negative) Ur Leukocyte Esterase (Negative) Urine RBC (0-5) /hpf Urine Mucus (None) /hpf
[2024-02-25] MEDS: METOPROLOL SUCCINATE (ER) 50 MG TAB.ER.24H PO SCH (20:31)
[2024-02-25] MEDS: lisinopriL 10 MG TAB PO SCH (20:31)
[2024-02-26 07:23] VITALS: RESP 16
[2024-02-26 07:49] LABS: ALT 41 U/L (4-34); AST 42 U/L (14-36); African American GFR (CKD) >90 (>60 ml/min/1.73 sqM); Albumin 3.1 g/dL (3.5-5.0); Albumin/Globulin Ratio 1.3; Alkaline Phosphatase 78 U/L (38-126); Anion Gap 8 mmol/L; Blood Urea Nitrogen 7 mg/dL (7-17); Calcium 8.8 mg/dL (8.4-10.2); Carbon Dioxide 18 mmol/L (22-30); Chloride 109 mmol/L (98-107); Globulin 2.3 g/dL; Glucose 84 mg/dL (74-99); Non-African American GFR(CKD) >90 (>60 ml/min/1.73 sqM); Sodium 135 mmol/L (137-145); Total Bilirubin 0.6 mg/dL (0.2-1.3); Total Protein 5.4 g/dL (6.3-8.2)
[2024-02-26 07:54] LABS: Basophils # (A) 0.1 k/uL (0-0.2); Basophils % (A) 2 %; Eosinophils # (A) 0.2 k/uL (0-0.7); Eosinophils % (A) 2 %; HCT 37.8 % (34.0-46.0); HGB 11.2 gm/dL (11.4-16.0); Hypochromasia Marked; Lymphocytes # (A) 1.3 k/uL (1.0-4.8); Lymphocytes % (A) 19 %; MCH 26.6 pg (25.0-35.0); MCHC 29.7 g/dL (31.0-37.0); MCV 89.6 fL (80.0-100.0); Mean Platelet Volume 8.8; Monocytes # (A) 0.5 k/uL (0-1.0); Monocytes % (A) 7 %; Neutrophils # (A) 4.4 k/uL (1.3-7.7); Neutrophils % (A) 67 %; Platelet Count 290 k/uL (150-450); RBC 4.22 m/uL (3.80-5.40); RDW 13.7 % (11.5-15.5); WBC 6.6 k/uL (3.8-10.6)
--- NOTE | 2024-02-26 08:37 | P.PN ---
Subjective Progress Note Date: 02/26/24 This is a 68-year-old female who is postop day #2 after removal of gangrenous gallbladder with Dr. Chowdhury. Over the holiday weekend patient had significant epigastric and abdominal pain and was unable to tolerate diet. She presented to the emergency department and workup showed cholecystitis. Patient is seen this morning laying in bed comfortably. She reports she is passing gas. She is tolerating her clear liquid diet. She does admit she feels hungry. Vitals are stable. She remains on Zosyn. Objective - Vital Signs Vital signs: Vital Signs Temp 98.4 F 02/26/24 06:58 Pulse 65 02/26/24 06:58 Resp 16 02/26/24 06:58 BP 144/90 02/26/24 06:58 Pulse Ox 95 02/26/24 06:58 FiO2 Intake & Output 02/25/24 02/26/24 02/26/24 18:59 06:59 18:59 Output Total 70 30 Balance -70 -30 Output: Drainage 70 30 Right Abdomen 70 30 Other: # Voids 3 3 - Constitutional General appearance: Present: cooperative, no acute distress - EENT Eyes: Present: PERRLA - Neck Neck: Present: normal ROM. Absent: lymphadenopathy, rigidity - Respiratory Respiratory: bilateral: CTA - Cardiovascular Rhythm: regular Heart sounds: normal: S1, S2 - Gastrointestinal General gastrointestinal: Present: soft - Integumentary Integumentary: Present: normal, normal turgor - Psychiatric Psychiatric: Present: A&O x's 3, appropriate affect, intact judgment & insight - Labs CBC & Chem 7: 02/26/24 06:29 02/26/24 06:29 Labs: Abnormal Lab Results - Last 24 Hours (Table) 02/25/24 02/25/24 02/26/24 Range/Units 05:27 05:27 06:29 WBC 13.37 H (4.50-10.00) X 10*3/uL RBC 3.99 L (4.10-5.20) X 10*6/uL Hgb 10.7 L 11.2 L (12.0-15.0) g/dL Hct 32.9 L (37.2-46.3) % MCH 26.8 L (27.0-32.0) pg MCHC 29.7 L (31.0-37.0) g/dL Immature Gran # 0.11 H (0.00-0.04) X 10*3/uL Neutrophils # 11.99 H (1.80-7.70) X 10*3/uL Lymphocytes # 0.71 L (0.90-5.00) X 10*3/uL Eosinophils # 0 L (0.04-0.35) X 10*3/uL Sodium (137-145) mmol/L Chloride (98-107) mmol/L Carbon Dioxide (22-30) mmol/L Anion Gap 12.80 H (4.00-12.00) mmol/L BUN 8.4 L (9.0-27.0) mg/dL Glucose 129 H (70-110) mg/dL Calcium 8.6 L (8.7-10.3) mg/dL Total Bilirubin 0.2 L (0.3-1.2) mg/dL AST 60 H (13-35) U/L ALT 49 H (8-44) U/L Total Protein 5.5 L (6.2-8.2) g/dL Albumin 3.4 L (3.8-4.9) g/dL 02/26/24 Range/Units 06:29 WBC (4.50-10.00) X 10*3/uL RBC (4.10-5.20) X 10*6/uL Hgb (12.0-15.0) g/dL Hct (37.2-46.3) % MCH (27.0-32.0) pg MCHC (31.0-37.0) g/dL Immature Gran # (0.00-0.04) X 10*3/uL Neutrophils # (1.80-7.70) X 10*3/uL Lymphocytes # (0.90-5.00) X 10*3/uL Eosinophils # (0.04-0.35) X 10*3/uL Sodium 135 L (137-145) mmol/L Chloride 109 H (98-107) mmol/L Carbon Dioxide 18 L (22-30) mmol/L Anion Gap (4.00-12.00) mmol/L BUN (9.0-27.0) mg/dL Glucose (70-110) mg/dL Calcium (8.7-10.3) mg/dL Total Bilirubin (0.3-1.2) mg/dL AST 42 H (13-35) U/L ALT 41 H (8-44) U/L Total Protein 5.4 L (6.2-8.2) g/dL Albumin 3.1 L (3.8-4.9) g/dL Assessment and Plan (1) Cholecystitis Current Visit: Yes Status: Acute Code(s): K81.9 - CHOLECYSTITIS, UNSPECIFIED SNOMED Code(s): 00775183 (2) Gastroesophageal reflux disease Current Visit: No Status: Acute Code(s): K21.9 - GASTRO-ESOPHAGEAL REFLUX DISEASE WITHOUT ESOPHAGITIS SNOMED Code(s): 516988642 (3) History of total right hip arthroplasty Current Visit: No Status: Acute Code(s): Z96.641 - PRESENCE OF RIGHT ARTIFICIAL HIP JOINT SNOMED Code(s): 817812732101 (4) Hypertension Current Visit: No Status: Acute Code(s): I10 - ESSENTIAL (PRIMARY) HYPERTENSION SNOMED Code(s): 42729588 Plan: Check CBC and CMP in the morning. Continue to follow postop instructions from surgeon. Patient seen and evaluated by nurse practitioner, physician in agreement with plan
--- NOTE | 2024-02-26 11:12 | P.CONS ---
History of Present Illness - Reason for Consult Consult date: 02/25/24 Gangrenous cholecystitis Requesting physician: Donavan Chowdhury - Chief Complaint Abdominal pain x few days - History of Present Illness patient is a 68-year-old female with a past medical history significant for hypertension osteoarthritis reflux patient presented to hospital for evaluation of abdominal pain the patient pain has been going on for the last few days describing it to be sharp mostly to the right upper abdominal area without significant radiation did have associated nausea but no vomiting reported patient denies high-grade fever and no fever was reported on presentation to the hospital patient did have a normal white count however the white was up to 13.37 today creatinine 0.6 initially was observed not significant elevated repeat is slightly positive urine has been negative patient did have a gallbladder ultrasound that was suggestive of focal thickening of the gallbladder wall with cholelithiasis patient was eval by general surgery patient was taken to the OR did have findings of acute gangrenous cholecystitis status post laparoscopic subtotal cholecystectomy patient has been admitted to hospital patient was started on Zosyn infectious he was consulted for further management of antibiotic therapy Review of Systems Positive point and negatives has been mentioned in the HPI, complete review of systems was performed and all other systems are negative Past Medical History Past Medical History: GERD/Reflux, Hypertension, Musculoskeletal Disorder, Osteoarthritis (OA) Additional Past Medical History / Comment(s): Palpitations, hemorrhoids, slight bulging disc, acid refux resolved. History of Any Multi-Drug Resistant Organisms: None Reported Past Surgical History: Joint Replacement Additional Past Surgical History / Comment(s): D&C, throat polyp removed, co lonoscopy, benign growth removed from cheek, right hip replacement, left hip replacement 12/15. Past Anesthesia/Blood Transfusion Reactions: No Reported Reaction Past Psychological History: No Psychological Hx Reported Smoking Status: Never smoker Past Alcohol Use History: None Reported Past Drug Use History: None Reported - Past Family History Mother Family Medical History: No Reported History Medications and Allergies Home Medications Medication Instructions Recorded Confirmed Type lisinopriL [Prinivil] 10 mg PO HS 04/25/14 02/24/24 History Metoprolol Succinate [Toprol XL] 50 mg PO HS 07/21/23 02/24/24 History Allergies Allergy/AdvReac Type Severity Reaction Status Date / Time No Known Allergies Allergy Verified 02/24/24 18:18 Physical Exam Vitals: Vital Signs Temp Pulse Pulse Pulse Resp BP BP 02/25/24 09:03 02/25/24 08:00 98.0 F 71 15 02/25/24 02:17 98.1 F 68 18 02/24/24 23:57 77 02/24/24 23:27 77 02/24/24 22:57 80 02/24/24 22:27 74 02/24/24 22:12 71 02/24/24 21:57 98.1 F 74 16 02/24/24 21:40 77 17 146/65 02/24/24 21:25 74 15 150/65 02/24/24 21:10 73 17 149/59 02/24/24 20:55 76 18 164/72 02/24/24 20:40 97 F L 77 17 180/80 02/24/24 18:44 86 20 140/60 02/24/24 14:44 98 F 78 16 148/83 BP Pulse Ox 02/25/24 09:03 96 02/25/24 08:00 125/72 96 02/25/24 02:17 120/69 96 02/24/24 23:57 125/80 92 L 02/24/24 23:27 130/81 93 L 02/24/24 22:57 115/72 93 L 02/24/24 22:27 117/74 94 L 02/24/24 22:12 121/74 71 L 02/24/24 21:57 136/78 93 L 02/24/24 21:40 93 L 02/24/24 21:25 93 L 02/24/24 21:10 93 L 02/24/24 20:55 99 02/24/24 20:40 100 02/24/24 18:44 98 02/24/24 14:44 97 Intake and Output 02/24/24 02/25/24 02/25/24 22:59 06:59 14:59 Intake Total 1100 Output Total 50 40 Balance 1050 -40 Intake: IV 1100 Output: Drainage 40 Right Abdomen 40 Estimated Blood Loss 50 Other: Voiding Method Toilet # Voids 3 Weight 80.739 kg GENERAL DESCRIPTION: Elderly female lying in bed, no distress. No tachypnea or accessory muscle of respiration use. HEENT: Shows Pallor , no scleral icterus. Oral mucous membrane is dry. No pharyngeal erythema or thrush NECK: Trachea central, no thyromegaly. LUNGS: Unlabored breathing. Clear to auscultation anteriorly. No wheeze or crackle. HEART: S1, S2, regular rate and rhythm. No loud murmur ABDOMEN: Soft, mild right upper quadrant tenderness, FARZANA drain with mostly bloodstained secretion EXTREMITIES: No edema of feet. SKIN: No rash, no masses palpable. NEUROLOGICAL: The patient is awake, alert, oriented x3, mood and affect normal. Results CBC & Chem 7: 02/26/24 06:29 02/26/24 06:29 Labs: Abnormal Lab Results - Last 24 Hours (Table) 02/24/24 02/24/24 02/25/24 Range/Units 14:49 14:49 05:27 WBC 13.37 H (4.50-10.00) X 10*3/uL RBC 3.99 L (4.10-5.20) X 10*6/uL Hgb 10.7 L (12.0-15.0) g/dL Hct 32.9 L (37.2-46.3) % MCH 26.8 L (27.0-32.0) pg Immature Gran # 0.11 H (0.00-0.04) X 10*3/uL Neutrophils # 11.99 H (1.80-7.70) X 10*3/uL Lymphocytes # 0.71 L (0.90-5.00) X 10*3/uL Eosinophils # 0 L (0.04-0.35) X 10*3/uL Anion Gap (4.00-12.00) mmol/L BUN (9.0-27.0) mg/dL Creatinine 0.48 L (0.52-1.04) mg/dL Glucose (70-110) mg/dL Calcium (8.7-10.3) mg/dL Total Bilirubin (0.3-1.2) mg/dL AST 39 H (14-36) U/L ALT (8-44) U/L Total Protein (6.2-8.2) g/dL Albumin (3.8-4.9) g/dL Urine Protein Trace H (Negative) Urine Blood Moderate H (Negative) Ur Leukocyte Esterase Small H (Negative) Urine RBC 14 H (0-5) /hpf Urine Mucus Few H (None) /hpf 02/25/24 Range/Units 05:27 WBC (4.50-10.00) X 10*3/uL RBC (4.10-5.20) X 10*6/uL Hgb (12.0-15.0) g/dL Hct (37.2-46.3) % MCH (27.0-32.0) pg Immature Gran # (0.00-0.04) X 10*3/uL Neutrophils # (1.80-7.70) X 10*3/uL Lymphocytes # (0.90-5.00) X 10*3/uL Eosinophils # (0.04-0.35) X 10*3/uL Anion Gap 12.80 H (4.00-12.00) mmol/L BUN 8.4 L (9.0-27.0) mg/dL Creatinine (0.52-1.04) mg/dL Glucose 129 H (70-110) mg/dL Calcium 8.6 L (8.7-10.3) mg/dL Total Bilirubin 0.2 L (0.3-1.2) mg/dL AST 60 H (14-36) U/L ALT 49 H (8-44) U/L Total Protein 5.5 L (6.2-8.2) g/dL Albumin 3.4 L (3.8-4.9) g/dL Urine Protein (Negative) Urine Blood (Negative) Ur Leukocyte Esterase (Negative) Urine RBC (0-5) /hpf Urine Mucus (None) /hpf Assessment and Plan (1) Acute gangrenous cholecystitis Current Visit: Yes Status: Acute Code(s): K81.0 - ACUTE CHOLECYSTITIS SNOMED Code(s): 17829843 (2) Leukocytosis Current Visit: Yes Status: Acute Code(s): D72.829 - ELEVATED WHITE BLOOD CELL COUNT, UNSPECIFIED SNOMED Code(s): 786009971 Plan: 1patient presented to hospital abdominal pain and this patient has been diagno sed with acute gangrenous cholecystitis did not mention any perforation in this patient who is status post laparoscopic subtotal cholecystectomy we will need to cover for the enteric gram-negative both aerobes and anaerobes 2Zosyn 3.375 g every 8 hours should provide adequate antibiotic coverage 3if the patient spiked any fever or any worsening white count will obtain cultures Multiple question concern answered We will follow on clinical condition and cultures to further adjust medication if needed Thank you for this consultation we will follow the patient along with you Dictation was produced using [employer] software. please excuse any grammatical, word or spelling errors. Time with Patient: Greater than 30
[2024-02-26 13:32] VITALS: BP 126/76; PULSE 74; TEMP 98.6
--- NOTE | 2024-02-26 14:51 | P.DS ---
Providers Date of admission: 02/26/24 10:50 Expected date of discharge: 02/26/24 Attending physician: Donavan Chowdhury Consults: 02/24/24 20:24 Consult Physician Routine Consulting Provider: Francis Lainez Consult Reason/Comments: Medical management Do you want consulting provider notified?: Yes Consult Physician Routine Consulting Provider: [place] Consult Reason/Comments: Gangrenous cholecystitis Do you want consulting provider notified?: Yes Primary care physician: Francis Lainez Hospital Course: Discharge diagnosis 1. Gangrenous cholecystitis Hospital course This is a 68-year-old female who presented with right upper quadrant abdominal pain. She was found to have a thickened gallbladder wall and sludge. Patient is status post subtotal laparoscopic cholecystectomy. Patient tolerating diet. Her pain is controlled. She is afebrile. She has been up and ambulating. She is having flatus. She is stable for discharge. Please refer to chart for any further details. Physician Glass Installer Technician note has been reviewed by physician. Signing provider agrees with the documented findings, assessment, and plan of care. Patient Condition at Discharge: Stable Plan - Discharge Summary Discharge Rx Participant: No New Discharge Prescriptions: New cefUROXime axetiL [Ceftin] 500 mg PO BID 10 Days #20 tab metroNIDAZOLE [Flagyl] 500 mg PO TID 10 Days #30 tab HYDROcodone/APAP 5-325MG [Newberry 5-325] 1 tab PO Q6HR PRN 3 Days #12 tab PRN Reason: Pain Ibuprofen [Motrin] 600 mg PO Q8HR PRN #30 tab PRN Reason: Pain Continue lisinopriL [Prinivil] 10 mg PO HS Metoprolol Succinate [Toprol XL] 50 mg PO HS Discharge Medication List lisinopriL [Prinivil] 10 mg PO HS 04/25/14 [History] Metoprolol Succinate [Toprol XL] 50 mg PO HS 07/21/23 [History] HYDROcodone/APAP 5-325MG [Newberry 5-325] 1 tab PO Q6HR PRN 3 Days #12 tab 02/26/24 [Rx] Ibuprofen [Motrin] 600 mg PO Q8HR PRN #30 tab 02/26/24 [Rx] cefUROXime axetiL [Ceftin] 500 mg PO BID 10 Days #20 tab 02/26/24 [Rx] metroNIDAZOLE [Flagyl] 500 mg PO TID 10 Days #30 tab 02/26/24 [Rx] Follow up Appointment(s)/Referral(s): Francis Lainez MD [Primary Care Provider] - 1-2 days Donavan Chowdhury MD [STAFF PHYSICIAN] - 1 Week Activity/Diet/Wound Care/Special Instructions: No driving while taking [place]berry No lifting over 10 pounds You may shower. No soaking or tub baths for 2 weeks Very light activity until you are reevaluated at your follow up appointment with your surgeon Keep a log of FARZANA drain output and bring with you to your follow-up appointment Milk/strip drains 2-3 times a day Discharge Disposition: HOME SELF-CARE
--- NOTE | 2024-02-26 15:58 | P.PN ---
Subjective Progress Note Date: 02/26/24 Principal diagnosis: Reason for follow-up is acute gangrenous cholecystitis patient is a 68-year-old female with a past medical history significant for hypertension osteoarthritis reflux patient presented to hospital for evaluation of abdominal pain, patient be diagnosed with acute gangrenous cholecystitis status postcholecystectomy. On today's evaluation that is 02/26/2024, the patient continues to be afebrile, the patient is on room air and breathing comfortably, the Pt denies having any chest pain or cough, the patient abdominal pain has decreased in intensity denies having nausea no vomiting did not have any bowel movement. Patient white count normalized to 6.6, creatinine 0.61 no cultures Objective - Vital Signs Vital signs: Vital Signs Temp 98.4 F 02/26/24 06:58 Pulse 65 02/26/24 06:58 Resp 16 02/26/24 06:58 BP 144/90 02/26/24 06:58 Pulse Ox 93 L 02/26/24 09:01 FiO2 Intake & Output 02/25/24 02/26/24 02/26/24 18:59 06:59 18:59 Output Total 70 30 Balance -70 -30 Output: Drainage 70 30 Right Abdomen 70 30 Other: # Voids 3 3 - Exam GENERAL DESCRIPTION: An elderly female lying in bed in no distress RESPIRATORY SYSTEM: Unlabored breathing , decreased breath sounds at bases HEART: S1 S2 regular rate and rhythm , ABDOMEN: Soft , no tenderness EXTREMITIES: No edema feet - Labs CBC & Chem 7: 02/26/24 06:29 02/26/24 06:29 Labs: Abnormal Lab Results - Last 24 Hours (Table) 02/26/24 02/26/24 Range/Units 06:29 06:29 Hgb 11.2 L (11.4-16.0) gm/dL MCHC 29.7 L (31.0-37.0) g/dL Sodium 135 L (137-145) mmol/L Chloride 109 H (98-107) mmol/L Carbon Dioxide 18 L (22-30) mmol/L AST 42 H (14-36) U/L ALT 41 H (4-34) U/L Total Protein 5.4 L (6.3-8.2) g/dL Albumin 3.1 L (3.5-5.0) g/dL Assessment and Plan (1) Acute gangrenous cholecystitis Current Visit: Yes Status: Acute Code(s): K81.0 - ACUTE CHOLECYSTITIS SNOMED Code(s): 39908666 (2) Leukocytosis Current Visit: Yes Status: Acute Code(s): D72.829 - ELEVATED WHITE BLOOD CELL COUNT, UNSPECIFIED SNOMED Code(s): 008955002 Plan: 1patient presented to hospital abdominal pain and this patient has been diagnos ed with acute gangrenous cholecystitis did not mention any perforation in this patient who is status post laparoscopic subtotal cholecystectomy we will need to cover for the enteric gram-negative both aerobes and anaerobes 2patient is afebrile white count has normalized patient is feeling better and the patient has been cleared for discharge by surgical team we will consider 10-day course of oral Ceftin and Flagyl on discharge and close outpatient follow-up Dictation was produced using [employer] dictation software. please excuse any grammatical, word or spelling errors. Time with Patient: Less than 30
== END 2024-02-26 16:37 | disposition home or self-care (01) | DRG 419 ==
LOC: EC 14:02 → 4SSUR 18:07 → OBSVTOIN 02-26 10:50
PROVIDERS: ADMIT Surgery; ATTEND Surgery
PROC: 0FB44ZZ Excision of Gallbladder, Percutaneous Endoscopic Approach (ICD-10-PCS; principal; 2024-02-24 19:00)
DX: K80.00 Calculus of gallbladder with acute cholecystitis without obstruction (principal); K82.A1 Gangrene of gallbladder in cholecystitis; K21.00 Gastro-esophageal reflux disease with esophagitis, without bleeding; I10 Essential (primary) hypertension; M19.90 Unspecified osteoarthritis, unspecified site; Z96.643 Presence of artificial hip joint, bilateral; Z79.82 Long term (current) use of aspirin; Z79.899 Other long term (current) drug therapy
CPT/HCPCS: 36415; 76705; 80053; 81001; 82150; 83605; 83690; 84484; 85025; 88304; 93005; 94760; 99285

== ENCOUNTER 2024-04-23 15:44 | Observation (INO) | payer MEDICARE ==
--- NOTE | 2024-04-23 16:39 | ED ---
Chest Pain HPI - General Source: patient Mode of arrival: ambulatory Limitations: no limitations <Fredy Handley - Last Filed: 04/23/24 16:38> <Radha Goetz - Last Filed: 04/24/24 11:15> - General Chief Complaint: Chest Pain Stated Complaint: chest pain Time Seen by Provider: 04/23/24 16:39 - History of Present Illness Initial Comments: 68-year-old female presenting with chief complaint of chest pain. Started on 2:30 PM. States that it felt like she was having heartburn but it did not go away after taking Carmenza[place]. (Fredy Handley) Patient is a pleasant 68-year-old female past medical history of hypertension presenting today for chest pain. 230 this afternoon began experiencing heartburn-like chest pain in the center of her chest, came on all of a sudden. No exacerbating or relieving factors. Attempted Tums without improvement. Patient's mother had a heart attack at age of 69 and from this. No other first-degree relatives of CVA or CAD. Patient is a non-smoker. No prior history of ACS. Patient does see Dr. Willis for palpitations. He she states t hat he did at 1 point tell her "one of her blood vessels was narrow". Patient states pain resolved upon arrival to the emergency department. Of note did she did have shortness of breath with onset of the pain. Currently no shortness of breath, nausea, chest pain, difficulty in breathing, abdominal pain, vomiting, lower extremity swelling. (Radha Goetz) - Related Data Home Medications Medication Instructions Recorded Confirmed lisinopriL [Prinivil] 10 mg PO HS 04/25/14 04/23/24 Metoprolol Succinate [Toprol XL] 50 mg PO HS 07/21/23 04/23/24 Allergies Allergy/AdvReac Type Severity Reaction Status Date / Time No Known Allergies Allergy Verified 04/23/24 20:15 Review of Systems ROS Other: All systems not noted in ROS Statement are negative. <Fredy Handley - Last Filed: 04/23/24 16:38> ROS Other: All systems not noted in ROS Statement are negative. <Radha Goetz - Last Filed: 04/24/24 11:15> ROS Statement: Those systems with pertinent positive or pertinent negative responses have been documented in the HPI. EKG Findings - EKG Comments: EKG Findings:: EKG performed at 1634. Rate 70 bpm, sinus rhythm, NJ interval 183 ms, QRS duration 102 ms, QT/QTc 445/465, normal axis, T wave inversion V1, V2, V3, no ST elevations or depressions, no arrhythmia. EKG performed at 20:03 sinus rhythm, 63 bpm, NJ interval 140 ms, QRS duration 97 ms, QT/QTc 459/46 6 ms, borderline left axis deviation, T wave inversion V1, V2, no ST elevation or depression, no significant changes from EKG performed at 1634 <Radha Goetz - Last Filed: 04/24/24 11:15> Past Medical History Past Medical History: GERD/Reflux, Hypertension, Musculoskeletal Disorder, Osteoarthritis (OA) Additional Past Medical History / Comment(s): Palpitations, hemorrhoids, slight bulging disc, acid refux resolved. History of Any Multi-Drug Resistant Organisms: None Reported Past Surgical History: Cholecystectomy, Joint Replacement Additional Past Surgical History / Comment(s): D&C, throat polyp removed, colonoscopy, benign growth removed from cheek, right hip replacement, left hip replacement 12/15. Past Anesthesia/Blood Transfusion Reactions: No Reported Reaction Past Psychological History: No Psychological Hx Reported Smoking Status: Never smoker Past Alcohol Use History: None Reported Past Drug Use History: None Reported - Past Family History Mother Family Medical History: No Reported History <Fredy Handley - Last Filed: 04/23/24 16:38> General Exam Limitations: no limitations <Fredy Handley - Last Filed: 04/23/24 16:38> <Radha Goetz - Last Filed: 04/24/24 11:15> - General Exam Comments Initial Comments: Visual Physical Exam Vital signs reviewed General: Well-appearing, nontoxic, no acute distress. Head: Normocephalic, atraumatic Eyes: PERRLA, EOMI ENT: Airway patent Chest: Nonlabored breathing Skin: No visual rash, normal skin tone Neuro: Alert and oriented 3 Musculoskeletal: No gross abnormalities (Fredy Handley) PE: CONSTITUTIONAL: No apparent distress, well appearing SKIN: Warm, dry, no jaundice, hives or petechiae EYES: Pupils are equally round, extraocular movements intact without nystagmus, clear conjunctiva, non-icteric sclera HENT: Normocephalic, atraumatic, moist mucus membranes, oropharynx clear without exudates NECK: , Full range of motion, normal appearance PULMONARY: Clear to auscultation without wheezes, rhonchi, or rales, normal excursion, no accessory muscle use and no stridor CARDIOVASCULAR: Regular rate, rhythm, normal S1 and S2. No appreciated murmurs, rubs or gallops. Strong radial pulses with intact distal perfusion. No lower extremity edema GASTROINTESTINAL: Soft, non-tender, non-distended, no palpable masses, no rebound or guarding. No hepatosplenomegaly GENITOURINARY: MUSCULOSKELETAL: Extremities have no gross deformity, no edema, redness, or swelling. No calf swelling NEUROLOGIC:_a/o x 3, GCS 15, normal mentation and speech. Moves all extremities x 4 without motor or sensory deficit PSYCHIATRIC:_normal mood and affect, thought process is clear and linear (Radha Goetz) Course Vital Signs 04/23/24 04/23/24 16:10 20:12 Temperature 98.2 F Pulse Rate 70 70 Respiratory 20 18 Rate Blood Pressure 156/84 180/82 O2 Sat by Pulse 99 99 Oximetry Chest Pain MDM <Fredy Handley - Last Filed: 04/23/24 16:38> <Radha Goetz - Last Filed: 04/24/24 11:15> - MDM I performed the quick note portion of this visit, electronically signed Fredy Handley PA-C (Fredy Handley) Was pt. sent in by a medical professional or institution ([facility], [employer], urgent care, hospital, or long term...) When possible be specific @ -No Did you speak to anyone other than the patient for history (EMS, parent, family, police, friend...)? What history was obtained from this source @ -No Did you review nursing and triage notes (agree or disagree)? Why? @ -I reviewed and agree with nursing and triage notes-with exception of note stating patient had episode of emesis, patient only endorsed nausea to myself Were old charts reviewed (outside hosp., previous admission, EMS record, old EKG, old radiological studies, urgent care reports/EKG's, long term records)? Report findings @ -[Reviewed discharge summary from recent hospitalization on 02/26/2024, admitted to Dr. Mondragon for gangrenous cholecystitis Differential Diagnosis (chest pain, altered mental status, abdominal pain women, abdominal pain men, vaginal bleeding, weakness, fever, dyspnea, syncope, headache, dizziness, GI bleed, back pain, seizure, CVA, palpatations, mental health, musculoskeletal)? @ -Differential diagnosis remains broad however top considerations include ACS, pericarditis, costochondritis, GERD, esophageal spasm, Pancreatitis, Zoster, this is not meant to be an all-inclusive list. EKG interpreted by me (3pts min.). @ -As above X-rays interpreted by me (1pt min.). @ -No cardiomegaly of consolidations CT interpreted by me (1pt min.). @ -None done U/S interpreted by me (1pt. min.). @ -None done What testing was considered but not performed or refused? (CT, X-rays, U/S, labs)? Why? @ -None What meds were considered but not given or refused? Why? @ -None Did you discuss the management of the patient with other professionals (professionals i.e. , PA, [employer], lab, RT, psych nurse, social work instructor, line mechanic, teacher, district resource officer, pillowcase folder)? Give summary @ -No Was smoking cessation discussed for >3mins.? @ -No Was critical care preformed (if so, how long)? @ -No Were there social determinants of health that impacted care today? How? (Homelessness, low income, unemployed, alcoholism, drug addiction, transportation, low edu. Level, literacy, decrease access to med. care, usp, rehab)? @ -No Was there de-escalation of care discussed even if they declined (Discuss DNR or withdrawal of care, Hospice)? @ -No What co-morbidities impacted this encounter? (DM, HTN, Smoking, COPD, CAD, Can cer, CVA, ARF, Chemo, Hep., AIDS, mental health diagnosis, sleep apnea, morbid obesity)? @ -None Was patient admitted / discharged? Hospital course, mention meds given and route, prescriptions, significant lab abnormalities, going to OR and other pertinent info. @ -Hospital course admission Patient is a pleasant 68-year female past medical history hypertension presenting for heartburn-like chest pain that began this afternoon and resolved upon arrival. Initial troponin within normal limits, LFTs slightly elevated so ultrasound was obtained which did not show any acute process, heart score 4, patient admitted for chest pain workup to Dr. Wilson. Undiagnosed new problem with uncertain prognosis? @ -No Drug Therapy requiring intensive monitoring for toxicity (Heparin, Nitro, Insulin, Cardizem)? @ -No Were any procedures done? @ -No Diagnosis/symptom? @ -chest pain Acute, or Chronic, or Acute on Chronic? @ -Acute Uncomplicated (without systemic symptoms) or Complicated (systemic symptoms)? @ -complicated Side effects of treatment? @ -No Exacerbation, Progression, or Severe Exacerbation? @ -No Poses a threat to life or bodily function? How? (Chest pain, [place], MA, pneumonia, PE, COPD, DKA, ARF, appy, cholecystitis, CVA, Diverticulitis, Homicidal, Suicidal, threat to staff... and all critical care pts) @ -Yes potentially, if 2/2 ACS, could result in if pt discharged without f urther evaluation (Radha Goetz) Disposition <Fredy Handley - Last Filed: 04/23/24 16:38> <Radha Goetz - Last Filed: 04/24/24 11:15> Clinical Impression: Chest pain Disposition: ADMITTED IP TO THIS HOSP
[2024-04-23 17:02] LABS: Basophils % (A) 0 %; Eosinophils # (A) 0.2 k/uL (0-0.7); Eosinophils % (A) 3 %; HCT 36.7 % (34.0-46.0); HGB 12.3 gm/dL (11.4-16.0); Lymphocytes # (A) 1.1 k/uL (1.0-4.8); Lymphocytes % (A) 15 %; MCH 26.6 pg (25.0-35.0); MCHC 33.5 g/dL (31.0-37.0); Mean Platelet Volume 7.4; Monocytes # (A) 0.4 k/uL (0-1.0); Monocytes % (A) 5 %; Neutrophils # (A) 5.7 k/uL (1.3-7.7); Neutrophils % (A) 76 %; Platelet Count 269 k/uL (150-450); RBC 4.63 m/uL (3.80-5.40); RDW 15.7 % (11.5-15.5); WBC 7.5 k/uL (3.8-10.6)
[2024-04-23 17:16] LABS: ALT 48 U/L (4-34); AST 142 U/L (14-36); African American GFR (CKD) >90 (>60 ml/min/1.73 sqM); Alkaline Phosphatase 130 U/L (38-126); Anion Gap 9 mmol/L; Blood Urea Nitrogen 10 mg/dL (7-17); Calcium 9.1 mg/dL (8.4-10.2); Carbon Dioxide 23 mmol/L (22-30); Chloride 106 mmol/L (98-107); Glucose 147 mg/dL (74-99); Magnesium 2.1 mg/dL (1.6-2.3); Non-African American GFR(CKD) >90 (>60 ml/min/1.73 sqM); Potassium 4.4 mmol/L (3.5-5.1); Sodium 138 mmol/L (137-145); Total Bilirubin 0.7 mg/dL (0.2-1.3); Total Protein 6.5 g/dL (6.3-8.2)
[2024-04-23 17:18] LABS: INR 0.9 (<1.2); Partial Thromboplastin Time 25.3 sec (22.0-30.0)
[2024-04-23 17:41] LABS: MCV 79.3 fL (80.0-100.0)
--- NOTE | 2024-04-23 17:42 | XR ---
EXAMINATION TYPE: XR chest 2V DATE OF EXAM: 04/23/2024 5:24 PM CLINICAL INDICATION: Female, 68 years old with history of Chest Pain; COMPARISON: Chest radiographs from 02/16/2024 TECHNIQUE: XR chest 2V Frontal view of the chest. FINDINGS: Lungs/Pleura: There is flattening of the diaphragm with increased lucency of the lungs. No evidence o f pneumothorax, pleural effusion or focal consolidation. Pulmonary vascularity: Unremarkable. Heart/mediastinum: Cardiomediastinal silhouette is unremarkable. Musculoskeletal: No acute osseous pathology. IMPRESSION: 1. No acute cardiopulmonary disease process. 2. COPD changes.
[2024-04-23 18:02] LABS: Amylase 37 U/L (30-110); Lipase 156 U/L (23-300)
--- NOTE | 2024-04-23 19:02 | US ---
EXAMINATION TYPE: US abdomen limited DATE OF EXAM: 04/23/2024 COMPARISON: US 2023 CLINICAL INDICATION: Female, 68 years old with history of abnormal labs; Chest pain, history of jossie cystectomy TECHNIQUE: Multiple sonographic images of the right upper quadrant are obtained. FINDINGS: EXAM MEASUREMENTS: Liver Length: 13.8 cm CBD: 1.0 cm Right Kidney: 9.4 x 4.7 x 4.7 cm Pancreas: visualized portions wnl, limited by overlying midline bowel gas Liver: wnl Gallbladder: surgically absent Evidence for sonographic Lane's sign: no CBD: borderline dilated Right Kidney: wnl IMPRESSION: No evidence for acute process.
[2024-04-23] MEDS: ASPIRIN 81 MG PO STA (20:05)
[2024-04-23] MEDS ORDERED: ONDANSETRON 4 MG/2 ML VIAL IVP PRN (20:06)
[2024-04-23] MEDS ORDERED: NALOXONE 0.4 MG/ML 1 ML VIAL IV PRN (20:06)
[2024-04-23] MEDS ORDERED: ACETAMINOPHEN TAB 325 MG TAB PO PRN (20:06)
[2024-04-23] MEDS: METOPROLOL SUCCINATE (ER) 50 MG TAB.ER.24H PO SCH (20:30)
[2024-04-23] MEDS: lisinopriL 10 MG TAB PO SCH (20:30)
[2024-04-23] MEDS: FAMOTIDINE 20 MG TAB PO SCH (20:30)
[2024-04-24] MEDS: CALCIUM CARBONATE 500 MG CHEWABLE PO PRN (01:12)
[2024-04-24] MEDS: MAG HYDROX/AL HYDROX/SIMETH 30 ML CUP PO PRN (01:13)
[2024-04-24] MEDS: MELATONIN 3 MG TABLET PO PRN (01:18)
[2024-04-24 02:11] VITALS: TEMP 98.3
[2024-04-24 08:03] VITALS: BP 109/55; PULSE 63; RESP 16
--- NOTE | 2024-04-24 09:13 | P.CRDCN ---
History of Present Illness Consult date: 04/24/24 History of present illness: HISTORY OF PRESENTING ILLNESS Patient is a 68-year-old female who known to Dr. Ap Ricardo. July 2023 she had a perioperative evaluation by Dr. Ricardo where he performed an echocardiogram and a stress test. As per the patient she was told that the testing results were within limits and she could undergo surgery. She had bilateral hip surgeries since then and she is tolerated well. This time she presented to the hospital because of some burning type substernal chest pressure-like symptoms which got worse after eating food. Because she was concerned about her heart she presented to the ER. Admission ECG shows normal sinus rhythm with no acute ischemic changes Labs are essentially within normal limits with a hemoglobin of 12.3, platelets 269, BUN 10, creatinine 0.5, troponin x 3 are negative, REVIEW OF SYSTEMS 14 point review of system is negative except what is mentioned above in HPI. PHYSICAL EXAMINATION Vital signs reviewed. Head: Normocephalic. Eyes: Sclerae nonicteric. Neck: Brisk carotid upstroke, no jugular venous distention. Lungs: Clear to auscultation. Heart: Regular rate and rhythm, S1-S2, no S3, has systolic murmur, likely aortic stenosis, radiating to carotids, breast carotid upstroke . Abdomen: Soft nontender, positive bowel sounds. Extremities: No edema, intact distal pulses. Neuro: Alert, oritented, no focal deficits. Detailed neuro exam was not performed. ASSESSMENT Substernal chest pain, likely related to GERD Essential hypertension, poorly controlled Systolic murmur likely aortic stenosis Obesity Status post bilateral hip surgery Status post fall blood resection PLAN Patient is cleared to be discharged from cardiovascular standpoint. I would recommend her to follow-up with Dr. Ricardo in next 1 to 2 weeks. Patient does have a systolic murmur which I feel is related to aortic stenosis which appears to be mild to moderate in intensity from physical examination. It is not severe. I do not have echocardiogram reports to review at this time but would recommend outpatient follow-up on that. Would obtain HbA1c, lipid panels, NT proBNP levels and TSH levels. She is on metoprolol succinate 50 mg and lisinopril 10 mg at bedtime. Increase her lisinopril to 20 mg twice daily because of her elevated blood pressure. I would recommend her to check her blood pressure at home Trial of Protonix for 14 days Maalox as needed Patient is otherwise cleared from cardiovascular standpoint to be discharged Ray Mesa MD, FACC, RPVI Thank you for allowing [facility] to participate in this patient's care. Feel free to reach out in case of any followup questions. Past Medical History Past Medical History: GERD/Reflux, Hypertension, Musculoskeletal Disorder, Osteoarthritis (OA) Additional Past Medical History / Comment(s): Palpitations, hemorrhoids, slight bulging disc, acid refux resolved. History of Any Multi-Drug Resistant Organisms: None Reported Past Surgical History: Cholecystectomy, Joint Replacement Additional Past Surgical History / Comment(s): D&C, throat polyp removed, colonoscopy, benign growth removed from cheek, right hip replacement, left hip replacement 12/15. Past Anesthesia/Blood Transfusion Reactions: No Reported Reaction Past Psychological History: No Psychological Hx Reported Smoking Status: Never smoker Past Alcohol Use History: None Reported Past Drug Use History: None Reported - Past Family History Mother Family Medical History: No Reported History Medications and Allergies Home Medications Medication Instructions Recorded Confirmed Type lisinopriL [Prinivil] 10 mg PO HS 04/25/14 04/23/24 History Metoprolol Succinate [Toprol XL] 50 mg PO HS 07/21/23 04/23/24 History Allergies Allergy/AdvReac Type Severity Reaction Status Date / Time No Known Allergies Allergy Verified 04/23/24 20:15 Physical Exam Vitals: Vital Signs Temp Pulse Pulse Resp BP BP Pulse Ox 04/24/24 07:00 98.3 F 63 16 109/55 97 04/24/24 02:00 98.3 F 64 17 147/80 98 04/23/24 21:14 97.8 F 77 17 155/80 97 04/23/24 20:12 70 18 180/82 99 04/23/24 16:10 98.2 F 70 20 156/84 99 Intake and Output 04/23/24 04/24/24 04/24/24 22:59 06:59 14:59 Other: # Voids 1 2 Weight 80.739 kg Results 04/23/24 16:34 04/23/24 16:34 Cardiac Enzymes 04/23/24 04/23/24 04/23/24 Range/Units 16:34 16:34 20:24 AST 142 H (14-36) U/L Troponin I <0.012 <0.012 (0.000-0.034) ng/mL 04/24/24 Range/Units 00:11 AST (14-36) U/L Troponin I <0.012 (0.000-0.034) ng/mL Coagulation 04/23/24 Range/Units 16:34 PT 10.0 (10.0-12.5) sec APTT 25.3 (22.0-30.0) sec CBC 04/23/24 Range/Units 16:34 WBC 7.5 (3.8-10.6) k/uL RBC 4.63 (3.80-5.40) m/uL Hgb 12.3 (11.4-16.0) gm/dL Hct 36.7 (34.0-46.0) % Plt Count 269 (150-450) k/uL Comprehensive Metabolic Panel 04/23/24 Range/Units 16:34 Sodium 138 (137-145) mmol/L Potassium 4.4 (3.5-5.1) mmol/L Chloride 106 (98-107) mmol/L Carbon Dioxide 23 (22-30) mmol/L BUN 10 (7-17) mg/dL Creatinine 0.52 (0.52-1.04) mg/dL Glucose 147 H (74-99) mg/dL Calcium 9.1 (8.4-10.2) mg/dL AST 142 H (14-36) U/L ALT 48 H (4-34) U/L Alkaline Phosphatase 130 H (38-126) U/L Total Protein 6.5 (6.3-8.2) g/dL Albumin 4.0 (3.5-5.0) g/dL Current Medications Generic Name Dose Route Start Last Admin Trade Name Freq PRN Reason Stop Dose Admin Acetaminophen 650 mg 04/23/24 20:06 Acetaminophen Tab 325 Mg Tab PO Q6HR PRN Mild Pain or Fever > 100.5 Al Hydroxide/Mg Hydroxide 15 ml 04/23/24 20:04/24/24 01:13 Mag Hydrox/Al Hydrox/Simeth 30 Ml Cup PO 15 ml Q6HR PRN Administration Indigestion Atorvastatin Calcium 40 mg 04/25/24 09:00 Atorvastatin 40 Mg Tab PO DAILY FRANKIE Calcium Carbonate/Glycine 1,000 mg 04/23/24 20:06 04/24/24 01:12 Calcium Carbonate 500 Mg Chewable PO 1,000 mg Q4HR PRN Administration Dyspepsia Famotidine 20 mg 04/23/24 21:00 04/24/24 08:48 Famotidine 20 Mg Tab PO 20 mg BID FRANKIE Administration Lisinopril 10 mg 04/24/24 09:15 Lisinopril 10 Mg Tab PO BID FRANKIE Melatonin 3 mg 04/23/24 20:06 04/24/24 01:18 Melatonin 3 Mg Tablet PO 3 mg HS PRN Administration Insomnia Metoprolol Succinate 50 mg 04/23/24 21:00 04/23/24 20:30 Metoprolol Succinate (Er) 50 Mg Tab.Er.24h PO 50 mg HS FRANKIE Administration Naloxone HCl 0.2 mg 04/23/24 20:06 Naloxone 0.4 Mg/Ml 1 Ml Vial IV Q2M PRN Opioid Reversal Ondansetron HCl 4 mg 04/23/24 20:06 Ondansetron 4 Mg/2 Ml Vial IVP Q8HR PRN Nausea And Vomiting Pantoprazole Sodium 40 mg 04/24/24 09:15 Pantoprazole 40 Mg Tablet PO 05/08/24 09:14 AC-[id number] FRANKIE Intake and Output 04/23/24 04/24/24 04/24/24 22:59 06:59 14:59 Other: # Voids 1 2 Weight 80.739 kg 04/23/24 16:34 04/23/24 16:34
[2024-04-24] MEDS: PANTOPRAZOLE 40 MG TABLET PO SCH (09:27)
[2024-04-24 10:45] LABS: NT-Pro-B-Type Natriuretic Pept 622 pg/mL
[2024-04-24] MEDS: lisinopriL 10 MG TAB PO SCH (12:02)
--- NOTE | 2024-04-24 12:22 | P.HPIM ---
History of Present Illness H&P Date: 04/24/24 History of present illness: 68-year-old female who is known to Dr. Ricardo presented to hospital with burning substernal chest pain got worse after eating food. Patient had an echocardiogram and a stress test as a perioperative evaluation by Dr. Ricardo. Patient reported that her test results were reported to be within normal limits and she could undergo surgery. Patient had bilateral hip surgeries since then and tolerated procedures well. Patient's vitals stable on presentation. EKG showed normal sinus rhythm with no acute ischemic changes. Troponin X3 remain negative. Lab work unremarkable. REVIEW OF SYSTEMS: CONSTITUTIONAL: No fever, no malaise, no fatigue. HEENT: No recent visual problems or hearing problems. Denied any sore throat. CARDIOVASCULAR: No chest pain, orthopnea, PND, no palpitations, no syncope. PULMONARY: No shortness of breath, no cough, no hemoptysis. GASTROINTESTINAL: No diarrhea, no nausea, no vomiting, no abdominal pain. NEUROLOGICAL: No headaches, no weakness, no numbness. HEMATOLOGICAL: Denies any bleeding or petechiae. GENITOURINARY: Denies any burning micturition, frequency, or urgency. MUSCULOSKELETAL/RHEUMATOLOGICAL: Denies any joint pain, swelling, or any muscle pain. ENDOCRINE: Denies any polyuria or polydipsia. The rest of the 14-point review of systems is negative. PHYSICAL EXAMINATION: GENERAL: The patient is A&O x3, NAD HEENT: EOMI, Sclerae anicteric, Moist Mucous membranes Neck: Supple, Non tender, No JVD PULMONARY: Equal breath souds B/L, No wheezing, No crackles. CARDIOVASCULAR: S1, S2 present. No murmurs, rubs, or gallops. ABDOMEN: Soft, nontender, nondistended, normoactive bowel sounds. No guarding or rebound tenderness. MUSCULOSKELETAL: No edema, No cyanosis. No clubbing. Normal ROM. Intact peripheral pulses. EXTREMITIES: No cyanosis, clubbing, or pedal edema. NEUROLOGICAL: CN 2-12 grossly intact. No FND Assessment and plan: Chest pain: Atypical likely GERD Poorly controlled hypertension Systolic murmur likely aortic stenosis Obesity Status post bilateral hip surgery: Presented with burning substernal chest pain worse with food likely GERD Continue PPI EKG and troponin remain unremarkable. Cardiology consulted DVT prophylaxis SCD Monitor vital signs and labs Continue telemetry monitoring Labs and medication were reviewed. Continue same treatment. Resume home medication. Further recommendations as per clinical course of the patient Dictation was produced using [employer] dictation software. please excuse any grammatical, word or spelling errors. Past Medical History Past Medical History: GERD/Reflux, Hypertension, Musculoskeletal Disorder, Osteoarthritis (OA) Additional Past Medical History / Comment(s): Palpitations, hemorrhoids, slight bulging disc, acid refux resolved. History of Any Multi-Drug Resistant Organisms: None Reported Past Surgical History: Cholecystectomy, Joint Replacement Additional Past Surgical History / Comment(s): D&C, throat polyp removed, colonoscopy, benign growth removed from cheek, right hip replacement, left hip replacement 12/15. Past Anesthesia/Blood Transfusion Reactions: No Reported Reaction Past Psychological History: No Psychological Hx Reported Smoking Status: Never smoker Past Alcohol Use History: None Reported Past Drug Use History: None Reported - Past Family History Mother Family Medical History: No Reported History Medications and Allergies Home Medications Medication Instructions Recorded Confirmed Type Metoprolol Succinate [Toprol XL] 50 mg PO HS 07/21/23 04/23/24 History Pantoprazole [Protonix] 40 mg PO AC-BRKFST #30 tab 04/24/24 Rx lisinopriL [Zestril] 20 mg PO DAILY #30 tab 04/24/24 Rx Allergies Allergy/AdvReac Type Severity Reaction Status Date / Time No Known Allergies Allergy Verified 04/23/24 20:15 Physical Exam Vitals: Vital Signs Temp Pulse Pulse Resp BP BP Pulse Ox 04/24/24 07:00 98.3 F 63 16 109/55 97 04/24/24 02:00 98.3 F 64 17 147/80 98 04/23/24 21:14 97.8 F 77 17 155/80 97 04/23/24 20:12 70 18 180/82 99 04/23/24 16:10 98.2 F 70 20 156/84 99 Intake and Output 04/23/24 04/24/24 04/24/24 22:59 06:59 14:59 Other: Voiding Method Toilet # Voids 1 2 Weight 80.739 kg Results CBC & Chem 7: 04/23/24 16:34 04/23/24 16:34 Labs: Abnormal Lab Results - Last 24 Hours (Table) 04/23/24 04/23/24 Range/Units 16:34 16:34 MCV 79.3 L D (80.0-100.0) fL RDW 15.7 H (11.5-15.5) % Glucose 147 H (74-99) mg/dL AST 142 H (14-36) U/L ALT 48 H (4-34) U/L Alkaline Phosphatase 130 H (38-126) U/L
--- NOTE | 2024-04-24 12:23 | P.DS ---
Providers Date of admission: 04/23/24 20:06 Expected date of discharge: 04/24/24 Attending physician: Navi Wilson Consults: 04/23/24 20:06 Consult Physician Routine Consulting Provider: [facility] Consult Reason/Comments: Chest pain Do you want consulting provider notified?: Yes, Notify in am Primary care physician: Francis Lainez Hospital Course: Discharge diagnoses: Chest pain: Atypical likely GERD Poorly controlled hypertension Systolic murmur likely aortic stenosis Obesity Status post bilateral hip surgery: Presented with burning substernal chest pain worse with food likely GERD Continue PPI EKG and troponin remain unremarkable. Cardiology consultedokay to discharge per cardiology, symptoms likely related to GERD, outpatient follow-up with Dr. Ricardo in 1 to 2 weeks. Increase lisinopril to 20 mg daily due to elevated blood pressure Continue metoprolol Hospital course: 68-year-old female who is known to Dr. Ricardo presented to hospital with burning substernal chest pain got worse after eating food. Patient had an echocardiogram and a stress test as a perioperative evaluation by Dr. Ricardo. Patient reported that her test results were reported to be within normal limits and she could undergo surgery. Patient had bilateral hip surgeries since then and tolerated procedures well. Patient's vitals stable on presentation. EKG showed normal sinus rhythm with no acute ischemic changes. Troponin X3 remain negative. Lab work unremarkable. Cardiology consultedrecommended to continue metoprolol, increase lisinopril to 20 mg due to elevated blood pressure, chest pain likely GERD, recommended outpatient follow-up with Dr. Ricardo in 1 to 2 weeks. Symptoms resolved Continue Protonix PCP to follow-up. PHYSICAL EXAMINATION: GENERAL: The patient is A&O x3, NAD HEENT: EOMI, Sclerae anicteric, Moist Mucous membranes Neck: Supple, Non tender, No JVD PULMONARY: Equal breath souds B/L, No wheezing, No crackles. CARDIOVASCULAR: S1, S2 present. No murmurs, rubs, or gallops. ABDOMEN: Soft, nontender, nondistended, normoactive bowel sounds. No guarding or rebound tenderness. MUSCULOSKELETAL: No edema, No cyanosis. No clubbing. Normal ROM. Intact peripheral pulses. EXTREMITIES: No cyanosis, clubbing, or pedal edema. NEUROLOGICAL: CN 2-12 grossly intact. No FND SKIN: No rashes. Dictation was produced using dragon dictation software. please excuse any grammatical, word or spelling errors. Patient Condition at Discharge: Fair Plan - Discharge Summary New Discharge Prescriptions: New Pantoprazole [Protonix] 40 mg PO AC-BRKFST #30 tab lisinopriL [Zestril] 20 mg PO DAILY #30 tab Continue Metoprolol Succinate [Toprol XL] 50 mg PO HS Discontinued lisinopriL [Prinivil] 10 mg PO HS Discharge Medication List Metoprolol Succinate [Toprol XL] 50 mg PO HS 07/21/23 [History] Pantoprazole [Protonix] 40 mg PO AC-BRKFST #30 tab 04/24/24 [Rx] lisinopriL [Zestril] 20 mg PO DAILY #30 tab 04/24/24 [Rx] Follow up Appointment(s)/Referral(s): Fransisca Ricardo MD [STAFF PHYSICIAN] - 1 Week Francis Lainez MD [Primary Care Provider] - 1-2 days Discharge Disposition: HOME SELF-CARE
[2024-04-25] MEDS ORDERED: ATORVASTATIN 40 MG TAB PO SCH (09:00)
[2024-04-25 12:12] LABS: Chol/HDL Ratio 4.17 Ratio; LDL Cholesterol,Calculated 122.6 mg/dL (0.0-131.0); VLDL Calculation 18.78 mg/dL (5.00-40.00)
== END 2024-04-24 13:16 | disposition home or self-care (01) ==
LOC: EC 15:44 → 6NMEDSUR 20:06
PROVIDERS: ADMIT Internal Medicine; ATTEND Internal Medicine
DX: R07.2 Precordial pain (principal); I10 Essential (primary) hypertension; K21.9 Gastro-esophageal reflux disease without esophagitis; R01.1 Cardiac murmur, unspecified; E66.9 Obesity, unspecified; Z68.34 Body mass index [BMI] 34.0-34.9, adult; Z96.643 Presence of artificial hip joint, bilateral; Z79.899 Other long term (current) drug therapy
CPT/HCPCS: 36415; 71046; 76705; 80053; 80061; 82150; 83036; 83690; 83735; 83880; 84443; 84484; 85025; 85610; 85730; 93005; 99285

== ENCOUNTER → 2024-06-08 | Outpatient (CLI) | payer MEDICARE ==
[2024-06-08 19:17] LABS: ALT 167 U/L (8-44); AST 165 U/L (13-35); Albumin 4.2 g/dL (3.8-4.9); Albumin/Globulin Ratio 1.83 Ratio (1.60-3.17); Alkaline Phosphatase 563 U/L (41-126); BUN/Creat Ratio 22.71 Ratio (12.00-20.00); Blood Urea Nitrogen 15.9 mg/dL (9.0-27.0); Calcium 9.3 mg/dL (8.7-10.3); Chloride 107 mmol/L (96-109); Globulin 2.3 g/dL (1.6-3.3); Glucose 94 mg/dL (70-110); Potassium 4.2 mmol/L (3.5-5.5); Sodium 141 mmol/L (135-145); Total Bilirubin 0.5 mg/dL (0.3-1.2); Total Protein 6.5 g/dL (6.2-8.2)
[2024-06-08 19:21] LABS: HCT 39.7 % (37.2-46.3); HGB 12.7 g/dL (12.0-15.0); MCH 26.6 pg (27.0-32.0); MCV 83.1 FL (80.0-97.0); Mean Platelet Volume 12.9 FL (9.5-12.2); NRBC Per 100 WBC 0 X 10*3/uL (0.00-0.01); Platelet Count 208 X 10*3/uL (140-440); RBC 4.78 X 10*6/uL (4.10-5.20); RDW 16.1 % (11.5-14.5); WBC 4.86 X 10*3/uL (4.50-10.00)
== END | disposition home or self-care (01) ==
LOC: LABWHC1 15:11
PROVIDERS: ATTEND Surgery
DX: K83.09 Other cholangitis (principal)
CPT/HCPCS: 36415; 80053; 85027

== ENCOUNTER 2024-06-21 00:05 | Inpatient (IN) | payer MEDICARE ==
--- NOTE | 2024-06-21 00:15 | ED ---
Abdominal Pain HPI - General Chief Complaint: Abdominal Pain Stated Complaint: Post-Op Abdominal Pain Time Seen by Provider: 06/21/24 00:15 Source: patient, RN notes reviewed Mode of arrival: ambulatory Limitations: no limitations - History of Present Illness Initial Comments: This is a 68-year-old female presenting to the emergency department for chief co mplaint of epigastric and right upper quadrant abdominal pain that has been worsening over the past few weeks. Patient had emergent cholecystectomy completed with Dr. Chowdhury on 02/24/2024. Patient has a follow-up appointment scheduled in over a week for an MRCP with concern for common bile duct stones due to patient having elevation in recent LFTs and continued pain. Patient states that pain will be intermittent and will make her feel nauseous. She denies pale-colored stools, yellowing of eyes, pruritus. She denies urinary complaints, shortness of breath, difficulty breathing, fevers, chills. - Related Data Home Medications Medication Instructions Recorded Confirmed Metoprolol Succinate [Toprol XL] 50 mg PO HS 07/21/23 06/21/24 Previous Rx's Medication Instructions Recorded Pantoprazole [Protonix] 40 mg PO AC-BRKFST #30 tab 04/24/24 lisinopriL [Zestril] 20 mg PO DAILY #30 tab 04/24/24 Allergies Allergy/AdvReac Type Severity Reaction Status Date / Time No Known Allergies Allergy Verified 06/21/24 09:23 Review of Systems ROS Statement: Those systems with pertinent positive or pertinent negative responses have been documented in the HPI. ROS Other: All systems not noted in ROS Statement are negative. Past Medical History Past Medical History: GERD/Reflux, Hypertension, Musculoskeletal Disorder, Osteoarthritis (OA) Additional Past Medical History / Comment(s): Palpitations, hemorrhoids, slight bulging disc, acid refux resolved. History of Any Multi-Drug Resistant Organisms: None Reported Past Surgical History: Cholecystectomy, Joint Replacement, Orthopedic Surgery Additional Past Surgical History / Comment(s): D&C, throat polyp removed, c olonoscopy, benign growth removed from cheek, right hip replacement, left hip replacement 12/15. Past Anesthesia/Blood Transfusion Reactions: No Reported Reaction Past Psychological History: No Psychological Hx Reported Smoking Status: Never smoker Past Alcohol Use History: None Reported Past Drug Use History: None Reported - Past Family History Mother Family Medical History: No Reported History General Exam Limitations: no limitations General appearance: alert, in no apparent distress ENT exam: Present: normal exam, mucous membranes moist Neck exam: Present: normal inspection. Absent: tenderness, meningismus, lymphadenopathy Respiratory exam: Present: normal lung sounds bilaterally. Absent: respiratory distress, wheezes, rales, rhonchi, stridor Cardiovascular Exam: Present: regular rate, normal rhythm, normal heart sounds. Absent: systolic murmur, diastolic murmur, rubs, gallop, clicks GI/Abdominal exam: Present: soft, tenderness (RUQ, epigastric), normal bowel sounds. Absent: distended, guarding, rebound, rigid Extremities exam: Present: normal inspection, full ROM, normal capillary refill. Absent: tenderness, pedal edema, joint swelling, calf tenderness Back exam: Present: normal inspection Skin exam: Present: warm, dry, intact, normal color. Absent: rash Course Vital Signs 06/21/24 06/21/24 06/21/24 00:08 00:44 02:10 Temperature 98 F Pulse Rate 75 68 57 L Respiratory 18 18 18 Rate Blood Pressure 167/86 147/80 147/65 O2 Sat by Pulse 99 97 95 Oximetry 06/21/24 03:00 Temperature Pulse Rate 56 L Respiratory 18 Rate Blood Pressure 155/74 O2 Sat by Pulse 96 Oximetry Medical Decision Making - Medical Decision Making Was pt. sent in by a medical professional or institution ([facility], [facility], urgent care, hospital, or snf...) When possible be specific @ -No Did you speak to anyone other than the patient for history (EMS, parent, family, police, friend...)? What history was obtained from this source @ -No Did you review nursing and triage notes (agree or disagree)? Why? @ -I reviewed and agree with nursing and triage notes Were old charts reviewed (outside hosp., previous admission, EMS record, old EKG, old radiological studies, urgent care reports/EKG's, snf records)? Report findings @ -Reviewed patient's previous note from February where she underwent emergent cholecystectomy. Differential Diagnosis (chest pain, altered mental status, abdominal pain women, abdominal pain men, vaginal bleeding, weakness, fever, dyspnea, syncope, headache, dizziness, GI bleed, back pain, seizure, CVA, palpatations, mental health, musculoskeletal)? @ -Differential Abdominal Pain Women: Appendicitis, Cholecystitis, diverticulosis, ischemic bowel, pancreatitis, hep atitis, UTI, gastroenteritis, AAA, incarcerated hernia, bowel obstruction, constipation, inflammatory bowel, hepatitis, peptic ulcer disease, splenic infarction, perforated viscus, vulvitis, ovarian torsion, PID, kidney stone, placenta abruption, this is not meant to be an all-inclusive list EKG interpreted by me (3pts min.). @ -completed at 109 sinus bradycardia with a ventricular to 59, parable 154, QRS 106, QTc 453. Revealing a incomplete right bundle branch block. X-rays interpreted by me (1pt min.). @ -None done CT interpreted by me (1pt min.). @ -None done U/S interpreted by me (1pt. min.). @ -US of the right upper quadrant reveals mild extrahepatic biliary dilation proximal to 12 mm slightly more prominent versus prior. What testing was considered but not performed or refused? (CT, X-rays, U/S, labs)? Why? @ -None What meds were considered but not given or refused? Why? @ -None Did you discuss the management of the patient with other professionals (stacie clarke i.e. , PA, [facility], lab, RT, psych nurse, health care social worker, portfolio architect, teacher, county records management officer, director case)? Give summary @ -I spoke with on-call general surgeon, Dr. Kay in regard to the symptoms s/p cholecystectomy who follows with Dr. Chowdhury. Advised that patient be admitted for further evaluation. Was smoking cessation discussed for patient's >3mins.? @ -No Was critical care preformed (if so, how long)? @ -No Were there social determinants of health that impacted care today? How? (Homelessness, low income, unemployed, alcoholism, drug addiction, transportation, low edu. Level, literacy, decrease access to med. care, nursing home, rehab)? @ -No Was there de-escalation of care discussed even if they declined (Discuss DNR or withdrawal of care, Hospice)? DNR status @ -No What co-morbidities impacted this encounter? (DM, HTN, Smoking, COPD, CAD, Cancer, CVA, ARF, Chemo, Hep., AIDS, mental health diagnosis, sleep apnea, morbid obesity)? @ -None Was patient admitted / discharged? Hospital course, mention meds given and route, prescriptions, significant lab abnormalities, going to OR and other pertinent info. @ -Admitted. 68-year-old female with right upper quadrant abdominal pain s/p cholecystectomy. On my evaluation of the patient she is resting comfortably no signs acute distress. All signs are stable. Patient noted to have a positive Lane sign and tenderness to palpation in the epigastric region as well. Patient is provided with pain medication pending laboratory results and ultrasound imaging. She is agree with this plan. She is noted to have transa minitis with an AST of 378, ALT 308, alkaline phosphatase of 577. Amylase and lipase within normal limits. At this time patient will be admitted to general surgery for further evaluation with likely MRCP/ERCP for further evaluation. Case discussed with my attending Dr. Goetz Undiagnosed new problem with uncertain prognosis? @ -No Drug Therapy requiring intensive monitoring for toxicity (Heparin, Nitro, Insulin, Cardizem)? @ -No Were any procedures done? @ -No Diagnosis/symptom? @ -Transaminitis, rule out choledocholithiasis Acute, or Chronic, or Acute on Chronic? @ -Acute Uncomplicated (without systemic symptoms) or Complicated (systemic symptoms)? @ -Complicated Side effects of treatment? @ -No Exacerbation, Progression, or Severe Exacerbation? @ -No Poses a threat to life or bodily function? How? (Chest pain, USA, LA, pneumonia, PE, COPD, DKA, ARF, appy, cholecystitis, CVA, Diverticulitis, Homicidal, Suicidal, threat to staff... and all critical care pts) @ -No - Lab Data Result diagrams: 06/23/24 03:04 06/23/24 03:04 Lab Results 06/21/24 06/21/24 06/21/24 Range/Units 00:29 00:29 00:29 WBC 7.0 (3.8-10.6) k/uL RBC 5.18 (3.80-5.40) m/uL Hgb 13.7 (11.4-16.0) gm/dL Hct 42.7 (34.0-46.0) % MCV 82.4 (80.0-100.0) fL MCH 26.5 (25.0-35.0) pg MCHC 32.1 (31.0-37.0) g/dL RDW 15.2 (11.5-15.5) % Plt Count 190 (150-450) k/uL MPV 9.2 Neutrophils % 66 % Lymphocytes % 23 % Monocytes % 7 % Eosinophils % 2 % Basophils % 1 % Neutrophils # 4.6 (1.3-7.7) k/uL Lymphocytes # 1.6 (1.0-4.8) k/uL Monocytes # 0.5 (0-1.0) k/uL Eosinophils # 0.1 (0-0.7) k/uL Basophils # 0.1 (0-0.2) k/uL Sodium 137 (137-145) mmol/L Potassium 4.2 (3.5-5.1) mmol/L Chloride 105 (98-107) mmol/L Carbon Dioxide 23 (22-30) mmol/L Anion Gap 9 mmol/L BUN 19 H (7-17) mg/dL Creatinine 0.59 (0.52-1.04) mg/dL Est GFR (CKD-EPI)AfAm >90 (>60 ml/min/1.73 sqM) Est GFR (CKD-EPI)NonAf >90 (>60 ml/min/1.73 sqM) Glucose 116 H (74-99) mg/dL Plasma Lactic Acid Yobany 1.3 (0.7-2.0) mmol/L Calcium 9.2 (8.4-10.2) mg/dL Total Bilirubin 0.8 (0.2-1.3) mg/dL AST 378 H (14-36) U/L ALT 308 H (4-34) U/L Alkaline Phosphatase 577 H (38-126) U/L Total Protein 6.1 L (6.3-8.2) g/dL Albumin 4.1 (3.5-5.0) g/dL Amylase 38 (30-110) U/L Lipase 292 (23-300) U/L Disposition Clinical Impression: Transaminitis, Recurrent upper abdominal pain with history of cholecystectomy Disposition: ADMITTED IP TO THIS HOSP
[2024-06-21] MEDS: ONDANSETRON 4 MG/2 ML VIAL IVP STA (00:45)
[2024-06-21] MEDS: HYDROmorphone 1 MG/ML 1 ML SYRINGE IVP STA (00:47)
[2024-06-21 00:58] LABS: Basophils # (A) 0.1 k/uL (0-0.2); Basophils % (A) 1 %; Eosinophils # (A) 0.1 k/uL (0-0.7); Eosinophils % (A) 2 %; HCT 42.7 % (34.0-46.0); HGB 13.7 gm/dL (11.4-16.0); Lymphocytes # (A) 1.6 k/uL (1.0-4.8); Lymphocytes % (A) 23 %; MCH 26.5 pg (25.0-35.0); MCHC 32.1 g/dL (31.0-37.0); MCV 82.4 fL (80.0-100.0); Mean Platelet Volume 9.2; Monocytes # (A) 0.5 k/uL (0-1.0); Monocytes % (A) 7 %; Neutrophils # (A) 4.6 k/uL (1.3-7.7); Neutrophils % (A) 66 %; Platelet Count 190 k/uL (150-450); RBC 5.18 m/uL (3.80-5.40); RDW 15.2 % (11.5-15.5)
[2024-06-21 01:13] LABS: ALT 308 U/L (4-34); African American GFR (CKD) >90 (>60 ml/min/1.73 sqM); Albumin 4.1 g/dL (3.5-5.0); Amylase 38 U/L (30-110); Anion Gap 9 mmol/L; Blood Urea Nitrogen 19 mg/dL (7-17); Calcium 9.2 mg/dL (8.4-10.2); Carbon Dioxide 23 mmol/L (22-30); Chloride 105 mmol/L (98-107); Glucose 116 mg/dL (74-99); Lipase 292 U/L (23-300); Non-African American GFR(CKD) >90 (>60 ml/min/1.73 sqM); Sodium 137 mmol/L (137-145); Total Bilirubin 0.8 mg/dL (0.2-1.3); Total Protein 6.1 g/dL (6.3-8.2)
--- NOTE | 2024-06-21 01:28 | US ---
EXAMINATION TYPE: US abdomen limited DATE OF EXAM: 06/21/2024 COMPARISON: US 04/23/2024, 02/24/2024 CLINICAL INDICATION: Female, 68 years old with history of RUQ ab pain, hx jossie; Hx cholecystectomy J param 2023, patient has been having pain since 2 weeks after she had her surgery. TECHNIQUE: Grayscale and color Doppler imaging of the right upper quadrant. FINDINGS: EXAM MEASUREMENTS: Liver Length: 12.7 cm Gallbladder Wall: Surgically absent CBD: 1.21 cm Right Kidney: 9.3 x 5.1 x 4.5 cm [employer] NOTES: *Exam is limited due to gas Pancreas: Duct measures 3 mm at body. Tail was obscured. Liver: Appears coarse in echotexture. Gallbladder: Surgically absent Evidence for sonographic Lane's sign: Pt feels tenderness in RUQ CBD: Slightly dilated Right Kidney: No hydronephrosis or masses seen. Appearance of probable column of Gurdeep? Anechoic area seen in the RUQ near the melina hepatis/gallbladder fossa measuring= 1.6 x 1.4 x 1.9 c m. ?Question fluid filled bowel versus other. Peristalsis not seen within area for several minutes. IMPRESSION: Mild extrahepatic biliary dilatation proximal to 12 mm slightly more prominent versus kellee or. Consider MRI/MRCP or ERCP follow-up to further evaluate. Possible small 1.6 cm focal thin-walled fluid collection near the gallbladder fossa could reflect seroma versus other etiology. [facility], , 06/21/2024 1:26 AM
[2024-06-21 02:27] LABS: AST 378 U/L (14-36); Alkaline Phosphatase 577 U/L (38-126); Potassium 4.2 mmol/L (3.5-5.1)
[2024-06-21] MEDS ORDERED: NALOXONE 0.4 MG/ML 1 ML VIAL IV PRN (02:58)
[2024-06-21] MEDS ORDERED: KETOROLAC 15 MG/ML 1 ML VIAL IVP PRN (02:58)
[2024-06-21] MEDS ORDERED: IBUPROFEN 400 MG TAB PO PRN (02:58)
[2024-06-21] MEDS ORDERED: HYDROmorphone 1 MG/ML 1 ML SYRINGE IVP PRN (02:58)
[2024-06-21] MEDS: lisinopriL 10 MG TAB PO STA (03:18)
[2024-06-21] MEDS ORDERED: HYDROmorphone 2 MG/ML 1 ML SYRINGE IVP PRN (08:09)
--- NOTE | 2024-06-21 12:24 | P.CONS ---
History of Present Illness - Reason for Consult Consult date: 06/21/24 Transaminitis Requesting physician: Violeta Pleitez - Chief Complaint Abdominal pain - History of Present Illness This is a pleasant 68-year-old female who presented to the emergency department with complaints of abdominal pain mostly in the epigastric region radiating to h er back. She states that she has had this pain going on for months which started about 2 weeks after her cholecystectomy secondary to acute gangrenous cholecystitis and cholelithiasis on 02/24/[address] Chowdhury. Since that time she has had continued abdominal pain worse at times as well as elevated liver function studies. She has follow-up with Dr. Rober Zelaya in outpatient setting and her LFTs have continued to trend up, she was scheduled for ERCP on 06/30/2024 however pain has been more persistent. She denies any nausea or vomiting associated with her pain. She Gastroenterology was consulted for transaminitis. Abdominal ultrasound reports mild extrahepatic biliary dilation proximal to 12 mm slightly more prominent versus prior. Consider MRI MRCP or ERCP follow-up to further evaluate. Possible small 1.6 cm focal thin-walled fluid collection near the gallbladder fossa could reflect seroma versus other etiology. Review of Systems REVIEW OF SYSTEMS: CARDIOPULMONARY: No chest pain or shortness of breath. Gastrointestinal: Abdominal pain, epigastric radiating to back. No nausea or vomiting. No hematemesis, coffee-ground emesis. No rectal bleeding, or melena. GENITOURINARY: No dysuria or hematuria. MUSCULOSKELETAL: Reports normal range of motion. SKIN: No rashes. No jaundice. ENDOCRINE: No chills, fevers. No excessive weight gain or loss. No polydipsia or polyuria. PSYCHIATRIC: Unremarkable. NEUROLOGY: No change in mental status. Denies dizziness, headache. ENT: Vision unremarkable. CONSTITUTIONAL: No recent weight loss. No fever, chills, night sweats. Past Medical History Past Medical History: GERD/Reflux, Hypertension, Musculoskeletal Disorder, Osteoarthritis (OA) Additional Past Medical History / Comment(s): Palpitations, hemorrhoids, slight bulging disc, acid refux resolved. History of Any Multi-Drug Resistant Organisms: None Reported Past Surgical History: Cholecystectomy, Joint Replacement, Orthopedic Surgery Additional Past Surgical History / Comment(s): D&C, throat polyp removed, colonoscopy, benign growth removed from cheek, right hip replacement, left hip replacement 4/30. Past Anesthesia/Blood Transfusion Reactions: No Reported Reaction Past Psychological History: No Psychological Hx Reported Smoking Status: Never smoker Past Alcohol Use History: None Reported Past Drug Use History: None Reported - Past Family History Mother Family Medical History: No Reported History Medications and Allergies Home Medications Medication Instructions Recorded Confirmed Type Metoprolol Succinate [Toprol XL] 50 mg PO HS 07/21/23 06/21/24 History Pantoprazole [Protonix] 40 mg PO AC-BRKFST #30 tab 04/24/24 06/21/24 Rx lisinopriL [Zestril] 20 mg PO DAILY #30 tab 04/24/24 06/21/24 Rx Allergies Allergy/AdvReac Type Severity Reaction Status Date / Time No Known Allergies Allergy Verified 06/21/24 09:23 Physical Exam Vitals: Vital Signs Temp Pulse Pulse Resp BP BP Pulse Ox 06/21/24 07:10 97.8 F 59 L 17 116/65 100 06/21/24 03:55 97.1 F L 57 L 17 170/80 99 06/21/24 03:00 56 L 18 155/74 96 06/21/24 02:10 57 L 18 147/65 95 06/21/24 00:44 68 18 147/80 97 06/21/24 00:08 98 F 75 18 167/86 99 Intake and Output 06/20/24 06/21/24 06/21/24 22:59 06:59 14:59 Other: # Voids 1 Weight 69.4 kg General appearance: The patient is alert, oriented, appears in no acute distress. HET: Head is normocephalic and atraumatic. Conjunctiva pink. Sclera anicteric. Neck: Supple without lymphadenopathy. Trachea midline. Heart: Regular. Lungs: Equal expansion, normal respiratory effort. Abdomen: Soft, epigastric tenderness, nondistended. Skin: No rashes. No jaundice. Extremities: Normal skin color and turgor. No pedal edema. Neurological: No focal deficits. Alert and oriented x3. Results CBC & Chem 7: 06/21/24 00:29 06/21/24 00:29 Labs: Abnormal Lab Results - Last 24 Hours (Table) 06/21/24 Range/Units 00:29 BUN 19 H (7-17) mg/dL Glucose 116 H (74-99) mg/dL AST 378 H (14-36) U/L ALT 308 H (4-34) U/L Alkaline Phosphatase 577 H (38-126) U/L Total Protein 6.1 L (6.3-8.2) g/dL Comments: Abdominal ultrasound reports mild extrahepatic biliary dilation proximal to 12 mm slightly more prominent versus prior. Consider MRI MRCP or ERCP follow-up to further evaluate. Possible small 1.6 cm focal thin-walled fluid collection near the gallbladder fossa could reflect seroma versus other etiology. Assessment and Plan (1) Transaminitis Narrative/Plan: 68-year-old female presenting with epigastric abdominal pain with elevated AST, ALT and alkaline phosphatase within normal bilirubin that has been trending up since February when she had her gallbladder removed. Abdominal ultrasound shows prominent CBD mildly dilated at 1.2 cm which could be post Joselyn finding as well as thin-walled fluid collection near the gallbladder fossa. Will obtain MRCP, patient may require possible ERCP for possible choledocholithiasis. Will repeat labs. Current Visit: Yes Status: Acute Code(s): R74.01 - ELEVATION OF LEVELS OF LIVER TRANSAMINASE LEVELS SNOMED Code(s): 757573172 (2) Abdominal pain Current Visit: No Status: Acute Code(s): R10.9 - UNSPECIFIED ABDOMINAL PAIN SNOMED Code(s): 17237953 Plan: 1. Continue symptomatic and supportive care 2. MRCP ordered 3. For Protonix 40 mg daily for GI prophylaxis 4. A.m. labs, CBC, CMP, INR 5. CA 19-9 ordered 6. Hold NSAIDs in case patient will require ERCP 7. Pain medication as needed 8. Patient may have low-fat diet post MRCP, n.p.o. after midnight 9. Further recommendations forthcoming based on clinical course Thank you for this consultation, we will continue to follow. Dr. Germain Robledo I agree with the dictator's note, documented as a scribe by Tressa Paz.
--- NOTE | 2024-06-21 13:07 | P.GSHP ---
History of Present Illness H&P Date: 06/21/24 CHIEF COMPLAINT: Abdominal pain HISTORY OF PRESENT ILLNESS: This is a 68-year-old female who presented with epigastric abdominal pain that radiated to her back. She reports the intensity and the pain comes in waves. Patient had laparoscopic cholecystectomy on February 24, 2024 for gangrenous gallbladder. Patient reports that she has had pain about 2 weeks after surgery. She has been having issues with nausea and vomiting and decreased appetite. Initially she thought it was just recovering from surgery. She went to see her PCP and did have elevated liver enzymes on blood work. She followed up with Dr. Chowdhury and an MRCP initially was ordered outpatient but is still not scheduled for over a week away. Patient reports that her pain continued to increase therefore she came in for further evaluation. Abdominal ultrasound had reported mild extrahepatic biliary dilatation proximal to 12 mm slightly more prominent versus prior. Consider MRCP or ERCP. Possible small 1.6 cm focal thin-walled fluid collection near the gallbladder fossa could reflect seroma versus other etiology. Patient did have elevated liver enzymes. She has been seen by GI service and they have ordered an MRCP. PAST MEDICAL HISTORY: GERD/Reflux, Hypertension, Musculoskeletal Disorder, Osteoarthritis (OA), Palpitations, hemorrhoids, slight bulging disc PAST SURGICAL HISTORY: Cholecystectomy, Joint Replacement, Orthopedic SurgeryD&C, throat polyp removed, colonoscopy, benign growth removed from cheek, right hip replacement, left hip replacement 12/15. MEDICATIONS: See below ALLERGIES: See below SOCIAL HISTORY: No illicit drug use. REVIEW OF SYSTEMS: CONSTITUTIONAL: Denies fever or chills. HEENT: Denies blurred vision, vision changes, or eye pain. Denies hemoptysis CARDIOVASCULAR: Denies chest pain or pressure. RESPIRATORY: No shortness of breath. GASTROINTESTINAL: See HPI for pertinent findings HEMATOLOGIC: Denies bleeding disorders. GENITOURINARY: Denies any blood in urine or increased urinary frequency. SKIN: Denies pruitis. Denies rash. PHYSICAL EXAM: VITAL SIGNS: Reviewed GENERAL: Well-developed in no acute distress. HEENT: No sclera icterus. Extraocular movements grossly intact. Moist buccal mucosa. Head is atraumatic, normocephalic. No nasal drainage. ABDOMEN: Soft. Nondistended. Epigastric tenderness NEUROLOGIC: Alert and oriented. Cranial nerves II through XII grossly intact. LABORATORY DATA: WBC 7.0 Hgb 13.7 platelets 190 Sodium 137 potassium 4.2 creatinine 0.59 Total bili 0.8 AST 378 ALT 308 alk phos 577 lipase 292 IMAGING: Abdominal ultrasound as stated above ASSESSMENT: 1. Epigastric abdominal pain with elevated LFTs and laparoscopic cholecystectomy in February 2024 for gangrenous gallbladder with cholelithiasis PLAN: -Patient scheduled for an MRCP tomorrow to rule out choledocholithiasis. She is followed by GI service and they are also evaluating her for possible ERCP -Continue to monitor LFTs -Okay for clear liquid diet today and then n.p.o. after midnight for MRCP -IV fluids ordered -Continue pain management -Medicine service consulted for medical management Physician Paper Production Engineer note has been reviewed by physician. Signing provider agrees with the documented findings, assessment, and plan of care. Past Medical History Past Medical History: GERD/Reflux, Hypertension, Musculoskeletal Disorder, Osteoarthritis (OA) Additional Past Medical History / Comment(s): Palpitations, hemorrhoids, slight bulging disc, acid refux resolved. History of Any Multi-Drug Resistant Organisms: None Reported Past Surgical History: Cholecystectomy, Joint Replacement, Orthopedic Surgery Additional Past Surgical History / Comment(s): D&C, throat polyp removed, colonoscopy, benign growth removed from cheek, right hip replacement, left hip replacement 12/15. Past Anesthesia/Blood Transfusion Reactions: No Reported Reaction Past Psychological History: No Psychological Hx Reported Smoking Status: Never smoker Past Alcohol Use History: None Reported Past Drug Use History: None Reported - Past Family History Mother Family Medical History: No Reported History Medications and Allergies Home Medications Medication Instructions Recorded Confirmed Type Metoprolol Succinate [Toprol XL] 50 mg PO HS 07/21/23 06/21/24 History Pantoprazole [Protonix] 40 mg PO AC-BRKFST #30 tab 04/24/24 06/21/24 Rx lisinopriL [Zestril] 20 mg PO DAILY #30 tab 04/24/24 06/21/24 Rx Allergies Allergy/AdvReac Type Severity Reaction Status Date / Time No Known Allergies Allergy Verified 06/21/24 09:23 Surgical - Exam Vital Signs Temp Pulse Resp BP Pulse Ox 98 F 75 18 167/86 99 06/21/24 00:08 06/21/24 00:08 06/21/24 00:08 06/21/24 00:08 06/21/24 00:08 Results - Labs 06/21/24 00:29 06/21/24 00:29 Abnormal Lab Results - Last 24 Hours (Table) 06/21/24 Range/Units 00:29 BUN 19 H (7-17) mg/dL Glucose 116 H (74-99) mg/dL AST 378 H (14-36) U/L ALT 308 H (4-34) U/L Alkaline Phosphatase 577 H (38-126) U/L Total Protein 6.1 L (6.3-8.2) g/dL Diabetes panel 06/21/24 Range/Units 00:29 Sodium 137 (137-145) mmol/L Potassium 4.2 (3.5-5.1) mmol/L Chloride 105 (98-107) mmol/L Carbon Dioxide 23 (22-30) mmol/L BUN 19 H (7-17) mg/dL Creatinine 0.59 (0.52-1.04) mg/dL Glucose 116 H (74-99) mg/dL Calcium 9.2 (8.4-10.2) mg/dL AST 378 H (14-36) U/L ALT 308 H (4-34) U/L Alkaline Phosphatase 577 H (38-126) U/L Total Protein 6.1 L (6.3-8.2) g/dL Albumin 4.1 (3.5-5.0) g/dL Calcium panel 06/21/24 Range/Units 00:29 Calcium 9.2 (8.4-10.2) mg/dL Albumin 4.1 (3.5-5.0) g/dL Pituitary panel 06/21/24 Range/Units 00:29 Sodium 137 (137-145) mmol/L Potassium 4.2 (3.5-5.1) mmol/L Chloride 105 (98-107) mmol/L Carbon Dioxide 23 (22-30) mmol/L BUN 19 H (7-17) mg/dL Creatinine 0.59 (0.52-1.04) mg/dL Glucose 116 H (74-99) mg/dL Calcium 9.2 (8.4-10.2) mg/dL Adrenal panel 06/21/24 Range/Units 00:29 Sodium 137 (137-145) mmol/L Potassium 4.2 (3.5-5.1) mmol/L Chloride 105 (98-107) mmol/L Carbon Dioxide 23 (22-30) mmol/L BUN 19 H (7-17) mg/dL Creatinine 0.59 (0.52-1.04) mg/dL Glucose 116 H (74-99) mg/dL Calcium 9.2 (8.4-10.2) mg/dL Total Bilirubin 0.8 (0.2-1.3) mg/dL AST 378 H (14-36) U/L ALT 308 H (4-34) U/L Alkaline Phosphatase 577 H (38-126) U/L Total Protein 6.1 L (6.3-8.2) g/dL Albumin 4.1 (3.5-5.0) g/dL
[2024-06-21] MEDS: SODIUM CHLORIDE 0.9% 1,000 ML IV SCH (13:35)
--- NOTE | 2024-06-22 08:25 | P.CONS ---
History of Present Illness - Reason for Consult Consult date: 06/22/24 - Chief Complaint abdominal pain - History of Present Illness This is a 68-year-old female who presented to the emergency room with complaints of epigastric abdominal pain that radiated to her back. Patient reports the intensity and pain comes in waves, also reports issues with nausea and vomiting and decreased appetite. In February patient had a laparoscopic cholecystectomy for gangrenous gallbladder. She has had abdominal pain since then and reportedly had an MRCP scheduled a week away from now after seeing Dr. Chowdhury. Patient had lab work in our office which showed elevated liver enzymes, and they remain elevated during this admission. Abdominal ultrasound on admission shows mild extrahepatic biliary dilation proximal to 12 mm slightly more prominent versus prior and possible small 1.6 cm focal thin-walled fluid collection near the gallbladder fossa could reflect seroma versus other etiology. Patient has been seen and evaluated by general surgeon and GI who are recommending an MRCP which is scheduled for today. Patient is seen this morning sitting on side of bed. Her vitals are stable. She reports her pain is improved. Further medical history as noted below. Review of Systems Constitutional: Denies chills, Denies fever Cardiovascular: Denies chest pain, Denies dyspnea on exertion Respiratory: Denies cough, Denies dyspnea Gastrointestinal: Reports abdominal pain, Reports loss of appetite, Reports nausea, Reports vomiting Musculoskeletal: Denies arm numbness/tingling, Denies leg numbness/tingling Neurological: Denies headaches, Denies weakness Past Medical History Past Medical History: GERD/Reflux, Hypertension, Musculoskeletal Disorder, Osteoarthritis (OA) Additional Past Medical History / Comment(s): Palpitations, hemorrhoids, slight bulging disc, acid refux resolved. History of Any Multi-Drug Resistant Organisms: None Reported Past Surgical History: Cholecystectomy, Joint Replacement, Orthopedic Surgery Additional Past Surgical History / Comment(s): D&C, throat polyp removed, colonoscopy, benign growth removed from cheek, right hip replacement, left hip replacement 12/15. Past Anesthesia/Blood Transfusion Reactions: No Reported Reaction Past Psychological History: No Psychological Hx Reported Smoking Status: Never smoker Past Alcohol Use History: None Reported Past Drug Use History: None Reported - Past Family History Mother Family Medical History: No Reported History Medications and Allergies Home Medications Medication Instructions Recorded Confirmed Type Metoprolol Succinate [Toprol XL] 50 mg PO HS 07/21/23 06/21/24 History Pantoprazole [Protonix] 40 mg PO AC-BRKFST #30 tab 04/24/24 06/21/24 Rx lisinopriL [Zestril] 20 mg PO DAILY #30 tab 04/24/24 06/21/24 Rx Allergies Allergy/AdvReac Type Severity Reaction Status Date / Time No Known Allergies Allergy Verified 06/21/24 09:23 Physical Exam Vitals: Vital Signs Temp Pulse Resp BP Pulse Ox 06/22/24 07:07 98.2 F 68 17 135/62 99 06/22/24 01:51 97.9 F 71 18 151/76 98 06/21/24 20:40 65 18 06/21/24 19:33 98.0 F 65 18 138/73 95 06/21/24 13:56 98.5 F 58 L 17 144/77 98 Intake and Output 06/21/24 06/22/24 06/22/24 22:59 06:59 14:59 Intake Total 540 Balance 540 Intake: Oral 540 Other: # Voids 2 3 - Constitutional General appearance: cooperative, no acute distress - EENT Eyes: PERRLA - Neck Neck: no lymphadenopathy, normal ROM, no rigidity - Respiratory Respiratory: bilateral: CTA - Cardiovascular Rhythm: regular Heart sounds: normal: S1, S2 - Gastrointestinal General gastrointestinal: soft - Integumentary Integumentary: normal, normal turgor - Psychiatric Psychiatric: A&O x's 3, appropriate affect, intact judgment & insight Results CBC & Chem 7: 06/21/24 00:29 06/21/24 00:29 Assessment and Plan (1) Transaminitis Current Visit: Yes Status: Acute Code(s): R74.01 - ELEVATION OF LEVELS OF LIVER TRANSAMINASE LEVELS SNOMED Code(s): 762463171 (2) Abdominal pain Current Visit: No Status: Acute Code(s): R10.9 - UNSPECIFIED ABDOMINAL PAIN SNOMED Code(s): 75546193 (3) Hypertension Current Visit: No Status: Acute Code(s): I10 - ESSENTIAL (PRIMARY) HYPERTENSION SNOMED Code(s): 30477376 Plan: Continue home medications. Check CBC and CMP in the morning. Await results of MRCP. Patient seen and evaluated by nurse practitioner, physician in agreement with plan.
[2024-06-22 08:41] LABS: HCT 37.7 % (37.2-46.3); HGB 12.3 g/dL (12.0-15.0); MCH 26.9 pg (27.0-32.0); MCHC 32.6 g/dL (32.0-37.0); MCV 82.3 FL (80.0-97.0); Mean Platelet Volume 13.6 FL (9.5-12.2); NRBC Per 100 WBC 0 X 10*3/uL (0.00-0.01); Platelet Count 144 X 10*3/uL (140-440); RBC 4.58 X 10*6/uL (4.10-5.20); RDW 15.6 % (11.5-14.5); WBC 3.58 X 10*3/uL (4.50-10.00)
[2024-06-22 09:12] LABS: ALT 376 U/L (8-44); AST 294 U/L (13-35); Albumin 3.6 g/dL (3.8-4.9); Alkaline Phosphatase 562 U/L (41-126); BUN/Creat Ratio 14.17 Ratio (12.00-20.00); Blood Urea Nitrogen 8.5 mg/dL (9.0-27.0); Carbon Dioxide 20.9 mmol/L (21.6-31.8); Chloride 106 mmol/L (96-109); Glucose 68 mg/dL (70-110); Sodium 140 mmol/L (135-145); Total Bilirubin 0.7 mg/dL (0.3-1.2); Total Protein 5.6 g/dL (6.2-8.2)
[2024-06-22] MEDS: lisinopriL 20 MG TAB PO SCH (10:06)
[2024-06-22 10:11] LABS: INR 1.06 sec (0.93-1.11); Prothrombin Time 11.4 sec (9.9-11.9)
--- NOTE | 2024-06-22 12:25 | P.PN ---
Subjective Progress Note Date: 06/22/24 SURGICAL PROGRESS NOTE CHIEF COMPLAINT: Abdominal pain HISTORY OF PRESENT ILLNESS: Patient reports that her pain is better. Denies any nausea or vomiting. She is scheduled for MRCP today. Afebrile. Total bilirubin 0.7 AST 378 down to 294 ALT 308 up to 376 alk phos 577 to 562 PHYSICAL EXAM: VITAL SIGNS: Reviewed. GENERAL: Well-developed in no acute distress. ABDOMEN: Soft. Nondistended. Nontender. NEUROLOGIC: Alert and oriented. Cranial nerves II through XII grossly intact. ASSESSMENT: 1. Epigastric abdominal pain with elevated LFTs 2. Status post laparoscopic cholecystectomy in February 2024 for gangrenous gallbladder with cholelithiasis PLAN: -Patient scheduled for MRCP today to evaluate for possible choledocholithiasis -Await further GI recommendations -Repeat LFTs in a.m. Physician Chemical Tank Worker note has been reviewed by physician. Signing provider agrees with the documented findings, assessment, and plan of care. Objective - Vital Signs Vital signs: Vital Signs Temp 98.2 F 06/22/24 07:07 Pulse 68 06/22/24 07:07 Resp 17 06/22/24 07:07 BP 135/62 06/22/24 07:07 Pulse Ox 99 06/22/24 07:07 FiO2 Intake & Output 06/21/24 06/22/24 06/22/24 18:59 06:59 18:59 Intake Total 540 Balance 540 Intake: Oral 540 Other: # Voids 2 3 - Labs CBC & Chem 7: 06/22/24 02:54 06/22/24 02:54 Labs: Abnormal Lab Results - Last 24 Hours (Table) 06/22/24 06/22/24 Range/Units 02:54 02:54 WBC 3.58 L (4.50-10.00) X 10*3/uL MCH 26.9 L (27.0-32.0) pg RDW 15.6 H (11.5-14.5) % MPV 13.6 H (9.5-12.2) FL Carbon Dioxide 20.9 L (21.6-31.8) mmol/L Anion Gap 13.10 H (4.00-12.00) mmol/L BUN 8.5 L (9.0-27.0) mg/dL Glucose 68 L (70-110) mg/dL AST 294 H (13-35) U/L ALT 376 H (8-44) U/L Alkaline Phosphatase 562 H (41-126) U/L Total Protein 5.6 L (6.2-8.2) g/dL Albumin 3.6 L (3.8-4.9) g/dL
--- NOTE | 2024-06-22 13:34 | P.PN ---
Subjective Progress Note Date: 06/22/24 Principal diagnosis: Abdominal pain, elevated LFTs This is a pleasant 68-year-old female who presented to the emergency department with complaints of abdominal pain mostly in the epigastric region radiating to her back. She states that she has had this pain going on for months which started about 2 weeks after her cholecystectomy secondary to acute gangrenous cholecystitis and cholelithiasis on 02/24/[address] Chowdhury. Since that time she has had continued abdominal pain worse at times as well as elevated liver function studies. She has follow-up with Dr. Rober Zelaya in outpatient setting and her LFTs have continued to trend up, she was scheduled for ERCP on 06/30/2024 however pain has been more persistent. She denies any nausea or vomiting associated with her pain. She Gastroenterology was consulted for transaminitis. Abdominal ultrasound reports mild extrahepatic biliary dilation proximal to 12 mm slightly more prominent versus prior. Consider MRI MRCP or ERCP follow-up to further evaluate. Possible small 1.6 cm focal thin-walled fluid collection near the gallbladder fossa could reflect seroma versus other etiology. 06/22/2024 Patient seen and examined today as a follow-up. She states abdominal pain is gone. Denies any nausea or vomiting. LFTs remain elevated, with mild trend down total bilirubin 0.7 AST 294 ALT 376 alkaline phosphatase 562. CA 19-9 32.1. She remains afebrile. Scheduled for MRCP today. Objective - Vital Signs Vital signs: Vital Signs Temp 98.2 F 06/22/24 07:07 Pulse 68 06/22/24 07:07 Resp 17 06/22/24 07:07 BP 135/62 06/22/24 07:07 Pulse Ox 99 06/22/24 07:07 FiO2 Intake & Output 06/21/24 06/22/24 06/22/24 18:59 06:59 18:59 Intake Total 540 Balance 540 Intake: Oral 540 Other: # Voids 2 3 - Exam General appearance: The patient is alert, oriented, appears in no acute distress. HET: Head is normocephalic and atraumatic. Conjunctiva pink. Sclera anicteric. Neck: Supple without lymphadenopathy. Abdomen: Soft, mild epigastric tenderness, nondistended. Extremities: Normal skin color and turgor. No pedal edema Skin: No rashes, no jaundice Neurological: No focal deficits. Alert and oriented. - Labs CBC & Chem 7: 06/22/24 02:54 06/22/24 02:54 Assessment and Plan (1) Transaminitis Narrative/Plan: 68-year-old female presenting with epigastric abdominal pain with elevated AST, ALT and alkaline phosphatase within normal bilirubin that has been trending up since February when she had her gallbladder removed. Abdominal ultrasound shows prominent CBD mildly dilated at 1.2 cm which could be post Joselyn finding as well as thin-walled fluid collection near the gallbladder fossa. Will obtain MRCP, patient may require possible ERCP for possible choledocholithiasis. Will repeat labs. Current Visit: Yes Status: Acute Code(s): R74.01 - ELEVATION OF LEVELS OF LIVER TRANSAMINASE LEVELS SNOMED Code(s): 802532698 (2) Abdominal pain Current Visit: No Status: Acute Code(s): R10.9 - UNSPECIFIED ABDOMINAL PAIN SNOMED Code(s): 83443533 Plan: 1. Continue symptomatic and supportive care 2. MRCP ordered, still pending read 3. For Protonix 40 mg daily for GI prophylaxis 4. A.m. labs, CBC, CMP 5. CA 19-9 ordered 6. Hold NSAIDs in case patient will require ERCP 7. Pain medication as needed 8. Patient may have low-fat diet post MRCP, n.p.o. after midnight 9. Further recommendations forthcoming based on clinical course Thank you for this consultation, we will continue to follow. Dr. Germain Robledo I agree with the dictator's note, documented as a scribe by Tressa Paz.
--- NOTE | 2024-06-22 14:01 | MR ---
EXAMINATION TYPE: MR MRCP DATE OF EXAM: 06/22/2024 12:50 PM COMPARISON: . CLINICAL INDICATION: Female, 68 years old with history of epigastric pain, elevated LFTS; PHH, Epigas tric pain, elevated LFTs. TECHNIQUE: Multi planar, T2-weighted imaging with and without fat saturation and chemical shift imag ing was performed of the abdomen. Then, heavily T2 weighted imaging (half-Fourier acquisition single- shot turbo spin-echo) was utilized in order to study the biliary system. Maximum intensity projectio n images were reconstructed from the original data of the biliary tree. 3D images were created on [employer] work station. No Gadolinium given. FINDINGS: Lower Thorax: No evidence for acute process. MRCP: * The intrahepatic ducts are dilated centrally * The extrahepatic ducts are dilated. * The common hepatic duct measures 12 mm in size. * The common bile duct at the level of the pancreatic head measures 10 mm in size. There is a fillin g defect measuring 5 mm compatible choledocholithiasis. * The pancreatic duct is normal. * The gallbladder appears nondistended surgically absent with cystic duct remnant present. Abdomen: Liver: No evidence for cirrhosis. Signal dropout on chemical shift out of phase imaging. Pancreas: No ductal dilation. No evidence for solid mass. Spleen: Normal for size. Adrenal glands: Unremarkable. Kidneys: No evidence for obstructive uropathy. No suspicious renal masses. High T2 signal simple appe aring cyst. Stomach and Bowel: No evidence for bowel wall thickening or evidence for obstruction. Scattered colon ic diverticula. Retroperitoneum/Peritoneum: No evidence of pneumoperitoneum or free fluid. Vasculature: No aortic aneurysm. Musculoskeletal: The osseous structures appear intact. Lymph Nodes: No gross evidence for lymphadenopathy. Abdominal wall: Unremarkable. IMPRESSION: 1. Dilated biliary system with evidence of choledocholithiasis with stone measuring 5 mm. 2. Surgical changes to the gallbladder with cystic duct remnant. 3. Colonic diverticulosis. 4. Hepatic steatosis. 5. Simple appearing renal cysts which are subcentimeter. [facility], Workstation: [id number], 06/22/2024 1:59 PM
[2024-06-22] MEDS: METOPROLOL SUCCINATE (ER) 50 MG TAB.ER.24H PO SCH (20:06)
--- NOTE | 2024-06-23 08:25 | P.PN ---
Subjective Principal diagnosis: Choledocholithiasis The patient is awaiting ERCP for choledocholithiasis. No pain at this time Objective - Vital Signs Vital signs: Vital Signs Temp 98.1 F 06/23/24 01:21 Pulse 53 L 06/23/24 01:21 Resp 18 06/23/24 01:21 BP 147/79 06/23/24 01:21 Pulse Ox 99 06/23/24 01:21 FiO2 Intake & Output 06/22/24 06/23/24 06/23/24 18:59 06:59 18:59 Intake Total 600 Balance 600 Intake: Intake, IV Titration 600 Amount Sodium Chloride 0.9% 1, 600 000 ml @ 75 mls/hr IV . [id number] FRANKIE Rx#:[id number] Other: Voiding Method Toilet # Voids 2 - Constitutional General appearance: Present: average body habitus, cooperative - EENT Eyes: Absent: abnormal pupil - Neck Neck: Absent: lymphadenopathy - Respiratory Respiratory: bilateral: CTA - Cardiovascular Rhythm: regular Heart sounds: normal: S1, S2 Abnormal Heart Sounds: Absent: S3 Gallop - Gastrointestinal General gastrointestinal: Present: soft - Integumentary Integumentary: Absent: cellulitis - Labs CBC & Chem 7: 06/22/24 02:54 06/22/24 02:54 Labs: Abnormal Lab Results - Last 24 Hours (Table) 06/22/24 06/22/24 Range/Units 02:54 02:54 WBC 3.58 L (4.50-10.00) X 10*3/uL MCH 26.9 L (27.0-32.0) pg RDW 15.6 H (11.5-14.5) % MPV 13.6 H (9.5-12.2) FL Carbon Dioxide 20.9 L (21.6-31.8) mmol/L Anion Gap 13.10 H (4.00-12.00) mmol/L BUN 8.5 L (9.0-27.0) mg/dL Glucose 68 L (70-110) mg/dL AST 294 H (13-35) U/L ALT 376 H (8-44) U/L Alkaline Phosphatase 562 H (41-126) U/L Total Protein 5.6 L (6.2-8.2) g/dL Albumin 3.6 L (3.8-4.9) g/dL Assessment and Plan (1) Choledocholithiasis Current Visit: Yes Status: Acute Code(s): K80.50 - CALCULUS OF BILE DUCT W/O CHOLANGITIS OR CHOLECYST W/O OBST SNOMED Code(s): 387184236 Plan: AWait ERCP Will continue to follow.
[2024-06-23 08:38] LABS: ALT 271 U/L (8-44); AST 156 U/L (13-35); Albumin 3.7 g/dL (3.8-4.9); Albumin/Globulin Ratio 1.76 Ratio (1.60-3.17); Alkaline Phosphatase 540 U/L (41-126); BUN/Creat Ratio 15.43 Ratio (12.00-20.00); Blood Urea Nitrogen 10.8 mg/dL (9.0-27.0); Calcium 9.3 mg/dL (8.7-10.3); Carbon Dioxide 21.5 mmol/L (21.6-31.8); Chloride 105 mmol/L (96-109); Globulin 2.1 g/dL (1.6-3.3); Glucose 71 mg/dL (70-110); Potassium 4.4 mmol/L (3.5-5.5); Sodium 139 mmol/L (135-145); Total Bilirubin 0.5 mg/dL (0.3-1.2); Total Protein 5.8 g/dL (6.2-8.2)
[2024-06-23] MEDS: PANTOPRAZOLE 40 MG TABLET PO SCH (08:51)
[2024-06-23 09:33] LABS: HCT 36.4 % (37.2-46.3); HGB 12.1 g/dL (12.0-15.0); MCH 26.5 pg (27.0-32.0); MCHC 33.2 g/dL (32.0-37.0); MCV 79.6 FL (80.0-97.0); Mean Platelet Volume 12.9 FL (9.5-12.2); NRBC Per 100 WBC 0 X 10*3/uL (0.00-0.01); Platelet Count 175 X 10*3/uL (140-440); RBC 4.57 X 10*6/uL (4.10-5.20); RDW 15.5 % (11.5-14.5); WBC 4.69 X 10*3/uL (4.50-10.00)
[2024-06-23] MEDS: LEVOFLOXACIN 500MG-D5W PMX 500 MG in DEXTROSE/WATER 1 100ML.BAG IVPB SCH (13:41)
[2024-06-23] MEDS: INDOMETHACIN 100 MG SUPPOSITORY RECTAL ONE (13:42)
[2024-06-23] MEDS: IOPAMIDOL-300 50ML BTL MISCELLANE ONE ×2 (13:46)
[2024-06-23] MEDS ORDERED: PROPOFOL 10 MG/ML 20 ML VIAL IV ONE (13:54)
[2024-06-23] MEDS ORDERED: LIDOCAINE 1% INJ 10MG/ML (20 ML MDV) ONE (13:54)
[2024-06-23] MEDS: IV FLUID CONTINUATION 1,000 ML IV ONE (13:54)
--- NOTE | 2024-06-23 14:19 | P.PN ---
Subjective Progress Note Date: 06/23/24 SURGICAL PROGRESS NOTE CHIEF COMPLAINT: Abdominal pain HISTORY OF PRESENT ILLNESS: Patient reports she is feeling better. MRCP did report dilated biliary system with evidence of choledocholithiasis. Patient scheduled for ERCP today. Afebrile. WBC 4.69 LFTs trending down total bilirubin normal 0.5 Dr. Grady is covering for Dr. Chowdhury patient's PHYSICAL EXAM: VITAL SIGNS: Reviewed. GENERAL: Well-developed in no acute distress. ABDOMEN: Soft. Nondistended. Nontender. NEUROLOGIC: Alert and oriented. Cranial nerves II through XII grossly intact. ASSESSMENT: 1. Epigastric abdominal pain with elevated LFTs. MRCP showing evidence of choledocholithiasis 2. Status post laparoscopic cholecystectomy in February 2024 for gangrenous gallbladder with cholelithiasis PLAN: -Patient scheduled for ERCP today with GI service Physician State Comptroller note has been reviewed by physician. Signing provider agrees with the documented findings, assessment, and plan of care. I have personally seen and examined the patient, reviewed the PHOTOGRAPHER AERIAL /PAs history, exam and MDM and agree with the assessment and plan as written. Based on total visit time, I have performed more than 50% of the visit. As above: Patient without significant discomfort. Labs noted. ERCP results noted as well. Recheck labs tomorrow. Continue diet. Objective - Vital Signs Vital signs: Vital Signs Temp 98 F 06/23/24 13:26 Pulse 63 06/23/24 13:26 Resp 16 06/23/24 10:05 BP 137/67 06/23/24 13:26 Pulse Ox 99 06/23/24 13:26 FiO2 Intake & Output 06/22/24 06/23/24 06/23/24 18:59 06:59 18:59 Intake Total 600 Balance 600 Intake: Intake, IV Titration 600 Amount Sodium Chloride 0.9% 1, 600 000 ml @ 75 mls/hr IV . [id number] FRANKIE Rx#:[id number] Other: Voiding Method Toilet # Voids 2 - Labs CBC & Chem 7: 06/23/24 03:04 06/23/24 03:04 Labs: Abnormal Lab Results - Last 24 Hours (Table) 06/23/24 06/23/24 Range/Units 03:04 03:04 Hct 36.4 L (37.2-46.3) % MCV 79.6 L (80.0-97.0) FL MCH 26.5 L (27.0-32.0) pg RDW 15.5 H (11.5-14.5) % MPV 12.9 H (9.5-12.2) FL Carbon Dioxide 21.5 L (21.6-31.8) mmol/L Anion Gap 12.50 H (4.00-12.00) mmol/L AST 156 H (13-35) U/L ALT 271 H (8-44) U/L Alkaline Phosphatase 540 H (41-126) U/L Total Protein 5.8 L (6.2-8.2) g/dL Albumin 3.7 L (3.8-4.9) g/dL
--- NOTE | 2024-06-23 14:21 | P.PCN ---
Date of Procedure: 06/23/24 Procedure(s) Performed: Brief history: Patient is a 68 year-old pleasant lady scheduled for an ERCP as part of evaluation of abdominal pain for the last 6 months duration and elevated serum transaminases for the last 3 days' duration. She is status post gallbladder surgery in February of this year for symptomatic gallstones. Since that she has been having intermittent episodes of epigastric pain but much worse in the last week. Initial ultrasound showed evidence of biliary ductal dilation. She had an MRCP done yesterday that showed dilated common bile duct and intrahepatics with a 5 mm filling defect in the distal common bile duct and no pancreatic masses seen. Procedure performed: ERCP with biliary sphincterotomy and balloon sweep Preoperative diagnoses: Gastric pain and elevated LFTs/choledocholithiasis on MRCP IV sedation per anesthesia: Procedure: After informed consent was obtained from the patient and after the risks benefits and complications including bleeding perforation and pancreatitis explained in detail the patient was brought into the endoscopy unit. The patient was placed in prone position and IV conscious sedation was administered by anesthesia under continuous monitoring. The Olympus side-viewing duodenoscope was then inserted into the mouth and esophagus intubated without any difficulty. The scope was gradually advanced into the stomach and duodenum. The major papilla was identified without any difficulty. Initial cannulation resulted in opacification of the common bile duct and the common bile duct appeared dilated measuring 1.5 cm in diameter with abrupt tapering at the ampulla suspicious for papillary stenosis . No intrahepatic biliary dilation noted. No filling defects identified. At this time the catheter was exchanged over a guidewire with a biliary sphincterotomy and a biliary sphincterotomy was performed at 12 o'clock position and was extended to 1 cm. Following this 11 mm balloon was passed over the guidewire into the proximal CBD, gently inflated and withdrawn and did not see any stones exiting the ampulla. This maneuver was repeated at least 10 times and no stones were seen exiting the ampulla. At this time the procedure was terminated and the patient tolerated the procedure well. Impression: Dilated common bile duct measuring 1.5 cm in diameter with no filling defects noted. Status post biliary sphincterotomy with balloon sweep and no stone seen exiting the ampulla Mild papillary stenosis Pancreatic duct intentionally not cannulated Recommendations: The findings of this examination were discussed with the patient. At this time we will repeat LFTs tomorrow morning. Start on a clear liquid diet and advance as tolerated.
--- NOTE | 2024-06-23 15:17 | FL ---
Fluoroscopy for ERCP INDICATION: Pain and dilated common bile duct FINDINGS: Fluoroscopy time: 58.2 seconds. Total dose area product (DAP) in uGy*m?, mGy*cm? (or similar): 3.3082 Images obtained: 4. The common bile duct appears dilated. No filling defect is identified. No abrupt cut off tapering irr egularity identified. Extrahepatic biliary ducts visualized appear normal. IMPRESSION: 1. Documentation of fluoroscopy. 2. Dilated common bile duct. Obstructing etiology is not identified. [facility], , 06/23/2024 3:15 PM
[2024-06-24 08:39] VITALS: RESP 17
--- NOTE | 2024-06-24 08:47 | P.PN ---
Subjective Progress Note Date: 06/24/24 This is a 68-year-old female who presented to the emergency room with complaints of epigastric abdominal pain that radiated to her back. Patient reports the intensity and pain comes in waves, also reports issues with nausea and vomiting and decreased appetite. In February patient had a laparoscopic cholecystectomy for gangrenous gallbladder. She has had abdominal pain since then and reportedly had an MRCP scheduled a week away from now after seeing Dr. Chowdhury. Patient had lab work in our office which showed elevated liver enzymes, and they remain elevated during this admission. Abdominal ultrasound on admission shows mild extrahepatic biliary dilation proximal to 12 mm slightly more prominent versus prior and possible small 1.6 cm focal thin-walled fluid collection near the gallbladder fossa could reflect seroma versus other etiology. Patient has been seen and evaluated by general surgeon and GI who are recommending an MRCP which is scheduled for today. 06/24/2024 Patient seen this morning sitting up in bed. ERCP performed yesterday, no obtruction was found. Patient reports pain is improved. Vitals are stable. LFT's trending down however labs for today are not back at time of dictation. Patient reports she had a bowel movement yesterday. Objective - Vital Signs Vital signs: Vital Signs Temp 97.5 F L 06/24/24 07:25 Pulse 54 L 06/24/24 07:25 Resp 17 06/24/24 07:25 BP 156/73 06/24/24 07:25 Pulse Ox 97 06/24/24 07:25 FiO2 Intake & Output 06/23/24 06/24/24 06/24/24 18:59 06:59 18:59 Intake Total 1720 Balance 1720 Intake: IV 300 Intake, IV Titration 700 Amount Levofloxacin 500Mg-D5w 100 Pmx 500 mg In Dextrose/ Water 1 100ml.bag @ 100 mls/hr IVPB Q24H FRANKIE Rx#: [id number] Sodium Chloride 0.9% 1, 600 000 ml @ 75 mls/hr IV . [id number] FRANKIE Rx#:[id number] Oral 720 Other: Voiding Method Toilet # Voids 3 - Constitutional General appearance: Present: cooperative, no acute distress - EENT Eyes: Present: PERRLA - Neck Neck: Present: normal ROM. Absent: lymphadenopathy, rigidity - Respiratory Respiratory: bilateral: CTA - Cardiovascular Rhythm: regular Heart sounds: normal: S1, S2 - Gastrointestinal General gastrointestinal: Present: soft. Absent: tenderness - Integumentary Integumentary: Present: normal, normal turgor - Psychiatric Psychiatric: Present: A&O x's 3, appropriate affect, intact judgment & insight - Labs CBC & Chem 7: 06/23/24 03:04 06/23/24 03:04 Labs: Abnormal Lab Results - Last 24 Hours (Table) 06/23/24 Range/Units 03:04 Hct 36.4 L (37.2-46.3) % MCV 79.6 L (80.0-97.0) FL MCH 26.5 L (27.0-32.0) pg RDW 15.5 H (11.5-14.5) % MPV 12.9 H (9.5-12.2) FL Assessment and Plan (1) Transaminitis Current Visit: Yes Status: Acute Code(s): R74.01 - ELEVATION OF LEVELS OF LIVER TRANSAMINASE LEVELS SNOMED Code(s): 176902530 (2) Abdominal pain Current Visit: No Status: Acute Code(s): R10.9 - UNSPECIFIED ABDOMINAL PAIN SNOMED Code(s): 91594297 (3) Hypertension Current Visit: No Status: Acute Code(s): I10 - ESSENTIAL (PRIMARY) HYPERTENSION SNOMED Code(s): 49269172 Plan: Recommend advancing diet when ok with surgeon. Patient seen and evaluated by nurse practitioner, physician in agreement with plan.
[2024-06-24 10:41] LABS: ALT 201 U/L (4-34); AST 83 U/L (14-36); African American GFR (CKD) >90 (>60 ml/min/1.73 sqM); Albumin 3.7 g/dL (3.5-5.0); Albumin/Globulin Ratio 1.7; Alkaline Phosphatase 403 U/L (38-126); Anion Gap 5 mmol/L; Blood Urea Nitrogen 9 mg/dL (7-17); Calcium 9.4 mg/dL (8.4-10.2); Carbon Dioxide 22 mmol/L (22-30); Chloride 109 mmol/L (98-107); Globulin 2.2 g/dL; Glucose 87 mg/dL (74-99); Non-African American GFR(CKD) >90 (>60 ml/min/1.73 sqM); Potassium 4.3 mmol/L (3.5-5.1); Sodium 136 mmol/L (137-145); Total Bilirubin 0.6 mg/dL (0.2-1.3); Total Protein 5.9 g/dL (6.3-8.2)
--- NOTE | 2024-06-24 11:08 | P.PN ---
Subjective Progress Note Date: 06/24/24 Principal diagnosis: Abdominal pain, elevated LFTs This is a pleasant 68-year-old female who presented to the emergency department with complaints of abdominal pain mostly in the epigastric region radiating to her back. She states that she has had this pain going on for months which started about 2 weeks after her cholecystectomy secondary to acute gangrenous cholecystitis and cholelithiasis on 02/24/[address] Chowdhury. Since that time she has had continued abdominal pain worse at times as well as elevated liver function studies. She has follow-up with Dr. Rober Zelaya in outpatient setting and her LFTs have continued to trend up, she was scheduled for ERCP on 06/30/2024 however pain has been more persistent. She denies any nausea or vomiting associated with her pain. She Gastroenterology was consulted for transaminitis. Abdominal ultrasound reports mild extrahepatic biliary dilation proximal to 12 mm slightly more prominent versus prior. Consider MRI MRCP or ERCP follow-up to further evaluate. Possible small 1.6 cm focal thin-walled fluid collection near the gallbladder fossa could reflect seroma versus other etiology. 06/22/2024 Patient seen and examined today as a follow-up. She states abdominal pain is gone. Denies any nausea or vomiting. LFTs remain elevated, with mild trend down total bilirubin 0.7 AST 294 ALT 376 alkaline phosphatase 562. CA 19-9 32.1. She remains afebrile. Scheduled for MRCP today. 06/24/2024 Patient is seen and examined today as a follow-up. Yesterday she underwent ERCP with findings of biliary dilation without any filling defects status post balloon sphincterotomy. Today patient states she is feeling much better. Denies any abdominal pain, no nausea or vomiting. LFTs continue to trend down. Patient is afebrile. She is requesting to be discharged home. She is tolerating a regular diet. Objective - Vital Signs Vital signs: Vital Signs Temp 97.5 F L 06/24/24 07:25 Pulse 54 L 06/24/24 07:25 Resp 17 06/24/24 07:25 BP 156/73 06/24/24 07:25 Pulse Ox 97 06/24/24 07:25 FiO2 Intake & Output 06/23/24 06/24/24 06/24/24 18:59 06:59 18:59 Intake Total 1720 Balance 1720 Intake: IV 300 Intake, IV Titration 700 Amount Levofloxacin 500Mg-D5w 100 Pmx 500 mg In Dextrose/ Water 1 100ml.bag @ 100 mls/hr IVPB Q24H FRANKIE Rx#: [id number] Sodium Chloride 0.9% 1, 600 000 ml @ 75 mls/hr IV . [id number] FRANKIE Rx#:[id number] Oral 720 Other: Voiding Method Toilet # Voids 3 - Exam General appearance: The patient is alert, oriented, appears in no acute distress. HET: Head is normocephalic and atraumatic. Conjunctiva pink. Sclera anicteric. Neck: Supple without lymphadenopathy. Abdomen: Soft, nontender, nondistended. Extremities: Normal skin color and turgor. No pedal edema Skin: No rashes, no jaundice Neurological: No focal deficits. Alert and oriented. - Labs CBC & Chem 7: 06/23/24 03:04 06/24/24 10:06 Labs: Abnormal Lab Results - Last 24 Hours (Table) 06/23/24 Range/Units 03:04 Hct 36.4 L (37.2-46.3) % MCV 79.6 L (80.0-97.0) FL MCH 26.5 L (27.0-32.0) pg RDW 15.5 H (11.5-14.5) % MPV 12.9 H (9.5-12.2) FL Assessment and Plan (1) Transaminitis Narrative/Plan: 68-year-old female presenting with epigastric abdominal pain with elevated AST, ALT and alkaline phosphatase within normal bilirubin that has been trending up since February when she had her gallbladder removed. Abdominal ultrasound shows p rominent CBD mildly dilated at 1.2 cm which could be post Joselyn finding as well as thin-walled fluid collection near the gallbladder fossa. Will obtain MRCP, patient may require possible ERCP for possible choledocholithiasis. ERCP completed with findings of dilated biliary duct without any filling defect, status post balloon sphincterotomy. LFTs continue to trend down. Abdominal pain resolved. Patient likely passed stone. Current Visit: Yes Status: Acute Code(s): R74.01 - ELEVATION OF LEVELS OF LIVER TRANSAMINASE LEVELS SNOMED Code(s): 707280816 (2) Abdominal pain Current Visit: No Status: Acute Code(s): R10.9 - UNSPECIFIED ABDOMINAL PAIN SNOMED Code(s): 23972855 (3) Dilated bile duct Current Visit: Yes Status: Acute Code(s): K83.8 - OTHER SPECIFIED DISEASES OF BILIARY TRACT SNOMED Code(s): 476156515 Plan: 1. Continue symptomatic and supportive care 2. Patient may have low-fat diet 3. Patient is status post ERCP 4. If patient tolerates diet she may be cleared for discharge. Recommend outpa tient LFTs and follow-up with PCP Thank you for this consultation, we will continue to follow. Dr. Germain Robledo I agree with the dictator's note, documented as a scribe by Tressa Paz.
--- NOTE | 2024-06-24 14:11 | P.DS ---
Providers Date of admission: 06/21/24 02:59 Expected date of discharge: 06/24/24 Attending physician: Donavan Chowdhury Consults: 06/21/24 02:58 Consult Physician Routine Consulting Provider: ySeda Robledo Consult Reason/Comments: transaminitis Do you want consulting provider notified?: Yes, Notify in am 06/21/24 13:06 Consult Physician Routine Consulting Provider: Francis Lainez Consult Reason/Comments: medical management Do you want consulting provider notified?: Yes Primary care physician: Francis Lainez Hospital Course: Discharge diagnosis 1. Epigastric abdominal pain with elevated LFTs. MRCP showing evidence of choledocholithiasis. Status post ERCP with no evidence of choledocholithiasis. Patient may have passed a stone 2. Status post laparoscopic cholecystectomy in February 2024 for gangrenous gallbladder with cholelithiasis Hospital course This is a 68-year-old female who presented with epigastric abdominal pain she did have elevated LFTs. Had a laparoscopic cholecystectomy in February. MRCP had shown choledocholithiasis. She underwent ERCP with no evidence of choledocholithiasis per GI service. Patient's liver enzymes are trending down. She is tolerating diet. Abdominal pain has resolved. Patient may have passed a stone. She is stable for discharge. Please refer to chart for any further details. Physician Heat Engineering Teacher note has been reviewed by physician. Signing provider agrees with the documented findings, assessment, and plan of care. Patient Condition at Discharge: Stable Plan - Discharge Summary Discharge Rx Participant: No New Discharge Prescriptions: Continue Metoprolol Succinate [Toprol XL] 50 mg PO HS Pantoprazole [Protonix] 40 mg PO AC-BRKFST #30 tab lisinopriL [Zestril] 20 mg PO DAILY #30 tab Discharge Medication List Metoprolol Succinate [Toprol XL] 50 mg PO HS 07/21/23 [History] Pantoprazole [Protonix] 40 mg PO AC-BRKFST #30 tab 04/24/24 [Rx] lisinopriL [Zestril] 20 mg PO DAILY #30 tab 04/24/24 [Rx] Follow up Appointment(s)/Referral(s): Francis Lainez MD [Primary Care Provider] - 07/01/24 2:20 pm Syeda Robledo MD [STAFF PHYSICIAN] - 1 Week (Please call office to schedule your appointment.) Donavan Chowdhury MD [STAFF PHYSICIAN] - 06/29/24 2:00 pm Discharge Disposition: HOME SELF-CARE
[2024-06-24 14:41] VITALS: BP 111/57; PULSE 56; TEMP 98.1
== END 2024-06-24 15:01 | disposition home or self-care (01) | DRG 446 ==
LOC: EC 00:05 → 4SSUR 02:59
PROVIDERS: ADMIT Surgery; ATTEND Surgery
PROC: BF101ZZ Fluoroscopy of Bile Ducts using Low Osmolar Contrast (ICD-10-PCS; 2024-06-23)
PROC: 0F798ZZ Dilation of Common Bile Duct, Via Natural or Artificial Opening Endoscopic (ICD-10-PCS; principal; 2024-06-23 08:30)
DX: K83.8 Other specified diseases of biliary tract (principal); I10 Essential (primary) hypertension; K21.9 Gastro-esophageal reflux disease without esophagitis; Z96.643 Presence of artificial hip joint, bilateral; R74.01 Elevation of levels of liver transaminase levels; Z79.899 Other long term (current) drug therapy; Z90.49 Acquired absence of other specified parts of digestive tract
CPT/HCPCS: 36415; 43262; 74181; 74330; 76705; 80053; 82150; 83605; 83690; 85025; 85027; 85610; 86301; 93005; 96374; 96375; 99285